=== PATIENT | male | born 1950 | race Caucasian/White ===

== ENCOUNTER 2018-06-29 13:56 | Inpatient (IN) | payer MEDICARE, OTHER, SELFPAY ==
[2018-06-29] VITALS (13 sets, daily range): BP systolic 101–151; BP diastolic 1–90; PULSE 109–148; RESP 12–24; TEMP 36.2–37.4; O2SAT 96–99; BMI 36.1; BMI 36.2; BMI 36.6
[2018-06-29] MEDS: 0.9% Normal Saline 1,000 ML 1000 ML IV (14:15)
--- NOTE | 2018-06-29 14:18 | EKG12_ITS ---
Test Reason : RHYTHM CHANGE Blood Pressure : / mmHG Vent. Rate : 130 BPM Atrial Rate : 130 BPM P-R Int : 192 ms QRS Dur : 154 ms QT Int : 312 ms P-R-T Axes : -25 -19 113 degrees QTc Int : 459 ms Sinus tachycardia Left bundle branch block Abnormal ECG Confirmed by SAMEER JOAQUIN ([id number]), editor map SIDRA KNAPP ([id number]) on 07/04/2018 2:35:19 PM Referred By: RENAE Confirmed By:SAMEER JOAQUIN
--- NOTE | 2018-06-29 14:18 | EKG12_ITS ---
Test Reason : TACHYCARDIA Blood Pressure : / mmHG Vent. Rate : 134 BPM Atrial Rate : 288 BPM P-R Int : 000 ms QRS Dur : 138 ms QT Int : 308 ms P-R-T Axes : -40 -24 112 degrees QTc Int : 459 ms Sinus tachycardia Left bundle branch block Abnormal ECG Confirmed by SAMEER JOAQUIN ([id number]), news videotape editor SIDRA KNAPP ([id number]) on 07/04/2018 2:48:29 PM Referred By: RENAE Confirmed By:SAMEER JOAQUIN
[2018-06-29 14:56] LABS: Absolute Lymphocyte Count 2.03 X10^3/ul (0.83-4.51); Absolute Neutrophil Count 8.4 X10^3/uL (2.0-7.7); Basophil# 0.05 X10^3/uL; Basophil% 0.4 % (0-1); Eosinophil# 0.01 X10^3/uL; Eosinophils% 0.1 % (0-5); Hematocrit 32.6 % (40-54); Hemoglobin 10.6 g/dl (13.0-16.5); Lymphocyte # 2.03 X10^3/ul (4.0); Lymphocyte % 17.9 % (19-41); Mean Corp Hgb Conc 32.5 g/gl (32-36); Mean Corpuscular Hgb 30.3 pg (27.0-32.0); Mean Corpuscular Volume 93.1 fL (80-94); Mean Platelet Vol. 11.2 fl (6.2-12.0); Monocyte# 0.81 X10^3/uL; Monocyte% 7.1 % (0-10); Neutrophil # 8.37 X10^3/uL (2.7-7.7); POSITIVE COUNT NO; POSITIVE DIFFERENTIAL NO; POSITIVE MORPHOLOGY NO; Platelet Count 224 K/mm3 (150-450); RBC Distribution Width CV 13.8 % (11.6-14.6); RBC Distribution Width SD 45.4 fl (35.1-43.9); White Blood Count 11.3 K/mm3 (4.4-11.0)
[2018-06-29 15:03] LABS: International Normalized Ratio 1.1; Partial Thromboplast Time 27.1 Seconds (24.1-36.2); Prothrombin Time (Protime)PT. 14.4 SECONDS (11.7-14.9)
[2018-06-29 15:07] LABS: Lactic Acid 1.9 mmol/L (0.4-2.0)
[2018-06-29 15:09] LABS: ALB/GLOB Ratio 0.9 RATIO (0.9-2.4); AST(SGOT) 13 U/L (15-37); Alanine Aminotransfer ALT/SGPT 20 U/L (16-61); Albumin, Serum 2.9 g/dL (3.2-5.0); Alkaline Phosphatase 29 U/L (45-117); Anion Gap 13 (5-15); BUN 54 mg/dL (7-18); Chloride 110 mmol/L (98-107); Creatinine, Serum 1.15 mg/dL (0.70-1.30); EST Glomerular Filtration Rate 68 mL/min (>60); Est Glom Filt Rate - Afr Amer 82 mL/min (>60); Estimated Creatinine Clearance 63.19 ml/min; Globulin 3.3 g/dL (2.2-4.2); Glucose 221 mg/dL (74-106); Lipase 68 U/L (73-393); Magnesium 1.8 mg/dL (1.6-2.6); Protein, Total 6.2 g/dL (6.4-8.2); Sodium Level 142 mmol/L (136-145); Thyroid Stim Hormone (TSH) 0.33 uIU/mL (0.358-3.74)
[2018-06-29 15:38] LABS: Bacteria 0 SEEN /hpf (None Seen); Mucous, Urine 0 SEEN /hpf (<or=2+)
[2018-06-29 15:46] LABS: Color, Urine Yellow (Yellow); Glucose, Dipstick Normal (Normal); Ketone-Dipstick Negative (Negative); Leukocyte Esterase-Dipstick 25 /ul (Negative); Nitrite-Dipstick Negative (Negative); Occult Blood-Urine 25 /ul (Negative); Protein-Dipstick Negative (Negative); Urine Bilirubin Dipstick Negative (Negative); Urine Clarity Clear (Clear); Urine Urobilinogen Normal (Normal)
--- NOTE | 2018-06-29 15:55 | ED.RN ---
hector iniguez hold lopressor at this time.
[2018-06-29 16:14] LABS: Red Blood Cells-Urine 0-5 SEEN /hpf (0-5); Squamous Epithelial Cells - UA 0-5 SEEN /hpf (0-5); White Blood Cells 0-5 SEEN /hpf (0-5)
--- NOTE | 2018-06-29 16:31 | ED.VISSUMM ---
- ER Visit Summary Date of Service: 06/29/18 Chief Complaint: Weakness History of Present Illness: The patient is a 67 M who states that yesterday he thinks he had a heat stroke. He states he was carrying wood in and out of the house basement most of the day. One point he stumbled causing a contusion to his abdomen. States he kept drinking water and was urinating about every 45 minutes. At one point during the night he vomited what he describes as coffee grounds and then this morning he had a diarrheal episode that was black and tarry. Said no further vomiting. He ate some eggs and toast around noon. States he just feels like he has no energy. He states that he has a heart ventricle that works about 30%. From what I can gather he has a dilated cardiomyopathy, peripheral vascular disease, obstructive sleep apnea, diabetes and hypertension. He is on Plavix. He states he recently had a colonoscopy that was normal. He has never had any type of bleeding from his colon or stomach before. He states he has not had any epigastric burning or GERD symptoms. Physical Examination: Heart rate is 148. Blood pressure 101/57. Temperature 99.1. Respirations are 20. Pulse ox 97%. Gen: Well-nourished well-developed Head: Normocephalic atraumatic Eyes: Perrl EOMI ENT: TMs clear no rhinorrhea moist mucous membranes Neck: Supple no lymphadenopathy no JVD nontender CVS: Regular rate and tachycardic rhythm no murmurs normal S1-S2 Respiratory: No distress clear to auscultation bilaterally chest nontender Abdomen: Soft nontender nondistended normal bowel sounds no masses Back: Nontender Rectal: Black liquid stool that is heme positive Extremity: Nontender no edema Skin: Normal color no rash Neuro: alert orientated ?3 CN II-XII intact normal strength sensation reflexes gait cerebellar Psych: Normal affect normal mood Test Results: EKG demonstrates a bundle branch block at a rate of 134. Computer calls this atrial flutter however I do not see obvious flutter waves. Repeat EKG shows a sinus tachycardia with a left bundle branch block. Left bundle branch block is old. Hemoglobin at 10.6. He white count 11.3. BUN 54 creatinine 1.151. Coags obtained. Urinalysis normal. Chest x-ray negative. Emergency Department Course and Treatment: At the beginning of May he had a hemoglobin of 14.6 and outpatient labs. Today is 10.6. He is heme positive stool. This most likely is an upper GI bleed complicated by Plavix. He was received IV fluids as well as Protonix. I spoke with Dr. Ma who is on-call for surgery is going to come and evaluate the patient. Dr. Ovalles will admit for hospitalist service. Impression: 1. Upper GI Bleed 2. Anemia This note was generated with [employer] dictation software. It may contain incorrect words, spelling, and punctuation that were not noted in review of the chart prior to signing ED Disposition - Plan for ED Patient: Chief Complaint: Weakness Referrals: Suki Brewer MD [Primary Care Provider] -
[2018-06-29] MEDS: 0.9% Normal Saline 1,000 ML 999 ML IV (16:44)
[2018-06-29 16:49] LABS: Hematocrit 32.4 % (40-54); Hemoglobin 10.4 g/dl (13.0-16.5)
--- NOTE | 2018-06-29 17:14 | PCM.CONS.B ---
- Consult Date of Consult: 06/29/18 - Reason for Consult Chief Complaint: increased weakness and black stools History of Present Illness: 67 y/o WM presents with UGIB. Presents with increased weakness and melena. Denies abdominal pain. History of possible ulcer 20-30 years ago, treated with antacids and then stopped. Denies any problems since. Denies heartburn or acid indigestion. Has increased eructation. Recently had colonoscopy 11/14/17 found to have colon polyps. Past Medical History: Benign neoplasm of colon Tubular adenoma 2014 colonoscopy Brain TIA 06/02/2011 CAD (coronary artery disease), [place] coronary artery 06/03/2011 Cardiomyopathy, dilated, nonischemic (HCC) 07/07/2011 Congestive heart failure ([facility]) 06/03/2011 Dissection of carotid artery (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) 08/15/2014 RUTHY (obstructive sleep apnea), intolerant of CPAP 12/30/2008 Intolerant of CPAP Pure hypercholesterolemia ? PVD (peripheral vascular disease) ([facility]) 06/03/2011 Snoring ? Sprain of neck ? Tobacco use disorder 12/30/2008 Toxic diffuse goiter without mention of thyrotoxic crisis or storm history of DYE treatment Type II or unspecified type diabetes mellitus without mention of complication, not stated as uncontrolled ? Unspecified essential hypertension ? Unspecified hypothyroidism ? Unspecified late effects of cerebrovascular disease ? Unspecified otitis media ? Unspecified transient cerebral ischemia Past Surgical History: ANGIOPLASTY FEMORAL/POP 03/11/2014 Right femoral. ARTERY X-RAYS, HEAD & NECK 1998 Carotid angiogram CATARACT SURGERY, COMPLEX ?mid late ? bilateral COLONOSCOP W/ OR W/O [facility] SPEC 11/14/14 COLONOSCOPY W/BX ? 09/29/09 EGD W/O OR W/BRUSH/WASH ? 07/14/2012 KNEE ARTHROSCOP MENISCUS REPAIR MED/LAT ? 04/27/2017 LEFT HEART CATH,PERCUTANEOUS ? ? Cardiac cath, L heart PAST SURGICAL HISTORY OF 1951 evacuation of hematoma, PAST SURGICAL HISTORY OF 10/03? stents in both legs Medications: hydroCHLOROthiazide (HYDRODIURIL, ESIDRIX) 12.5 mg tablet Take 1 tablet by mouth once daily. levothyroxine (SYNTHROID) 137 mcg tablet TAKE 1 TABLET BY MOUTH ONCE DAILY. EXCEPT ON SATURDAY TAKE EXTRA HALF PILL atorvastatin (LIPITOR) 40 mg tablet Take 1 tablet by mouth once daily. clopidogrel (PLAVIX) 75 mg tablet Take 1 tablet by mouth once daily. spironolactone (ALDACTONE) 25 mg tablet Take 1 tablet by mouth once daily. carvedilol (COREG) 12.5 mg tablet Take 1 tablet by mouth twice daily with meals. tamsulosin ER (FLOMAX) 0.4 mg cp24 TAKE 1 CAPSULE BY MOUTH EVERY EVENING. aspirin(ECOTRIN LOW STRENGTH 81 MG TAB) Take one(1) tablet daily. lisinopril (ZESTRIL, PRINIVIL) 10 mg tablet Take 1 tablet by mouth once daily. Allergies: penicillins, tetracycline Social history: TOB use quit 2012 ETOH use 3 drinks per week Review of Systems: General - denies fevers, denies weight loss, denies anorexia Cardiovascular denies chest pain, has peripheral arterial disease - known left ICA occlusion and right iliac stenosis (stented) Pulmonary denies shortness of breath, denies coughing up blood Gastrointestinal as per HPI Neurological denies numbness/weakness of extremities, denies seizures Genitourinary has prostate problems, has had hematuria, has known BPH Hematological on plavix and aspirin, denies spontaneous/prolonged bleeding Skin denies open non healing wounds Musculoskeletal has knee pain Endocrine has diabetes, has hypothyroidism Psychological denies hallucinations Physical examination: Vital signs Ht: 5'10 Wt 240# Temp 98.2F HR 108 RR 16 BP 132/66 General WD/WN WM in no apparent distress, alert and oriented, not septic appearing HEENT Normocephalic. EOM intact with sclera clear and no icterus noted. Neck is supple with no jugular venous distention noted. Trachea is midline. Lungs clear to auscultation. normal breath sounds in all lung hernández. No rales/rhonchi/wheezing noted. No labored breathing noted, such as retractions. No cough heard. Heart normal S1 and S2 auscultated. No rubs/clicks/murmurs noted. Normal size and location by auscultation. Abdomen soft and benign and protuberant, normal bowel sounds, difficult to determine if any mass or organomegaly due to body habitus Extremities no calf tenderness noted. Genitourinary/Rectal deferred Skin normal skin integrity. Neurological non focal. Psychological normal affect, patient is calm and appropriate Impression: upper GI bleed anemia melena Discussion/Plan: I have discussed the above with the patient, and his who is present with him. I have offered EGD possible biopsies, for evaluation. I have explained the procedure to the patient. I have counseled the patient as to the risks of the procedure, including but not limited to: infection, bleeding, injury to any blood vessels/nerves, injury to any intraabdominal organs, aspiration, perforation of the GI tract, inability to localize site of bleeding, etc. the patient understands. He agrees to proceed. I have answered all questions to the patients satisfaction and the patient has no further questions.
--- NOTE | 2018-06-29 17:18 | CON.PCM_ITS ---
- Consult Date of Consult: 06/29/18 - Reason for Consult Chief Complaint: increased weakness and black stools History of Present Illness: 67 y/o WM presents with UGIB. Presents with increased weakness and melena. Denies abdominal pain. History of possible ulcer 20-30 years ago, treated with antacids and then stopped. Denies any problems since. Denies heartburn or acid indigestion. Has increased eructation. Recently had colonoscopy 11/14/17 found to have colon polyps. Past Medical History: Benign neoplasm of colon Tubular adenoma 2014 colonoscopy Brain TIA 06/02/2011 CAD (coronary artery disease), [place] coronary artery 06/03/2011 Cardiomyopathy, dilated, nonischemic (HCC) 07/07/2011 Congestive heart failure ([facility]) 06/03/2011 Dissection of carotid artery ([facility]) 06/10/2005 Lumbago 07/25/2007 Morbid obesity ([facility]) 08/15/2014 RUTHY (obstructive sleep apnea), intolerant of CPAP 12/30/2008 Intolerant of CPAP Pure hypercholesterolemia ? PVD (peripheral vascular disease) ([facility]) 06/03/2011 Snoring ? Sprain of neck ? Tobacco use disorder 12/30/2008 Toxic diffuse goiter without mention of thyrotoxic crisis or storm history of DYE treatment Type II or unspecified type diabetes mellitus without mention of complication , not stated as uncontrolled ? Unspecified essential hypertension ? Unspecified hypothyroidism ? Unspecified late effects of cerebrovascular disease ? Unspecified otitis media ? Unspecified transient cerebral ischemia Past Surgical History: ANGIOPLASTY FEMORAL/POP 03/11/2014 Right femoral. ARTERY X-RAYS, HEAD & NECK 1998 Carotid angiogram CATARACT SURGERY, COMPLEX ?mid late ? bilateral COLONOSCOP W/ OR W/O [facility] SPEC 11/14/14 COLONOSCOPY W/BX ? 09/29/09 EGD W/O OR W/BRUSH/WASH ? 07/14/2012 KNEE ARTHROSCOP MENISCUS REPAIR MED/LAT ? 04/27/2017 LEFT HEART CATH,PERCUTANEOUS ? ? Cardiac cath, L heart PAST SURGICAL HISTORY OF 1951 evacuation of hematoma, PAST SURGICAL HISTORY OF 10/03? stents in both legs Medications: hydroCHLOROthiazide (HYDRODIURIL, ESIDRIX) 12.5 mg tablet Take 1 tablet by mouth once daily. levothyroxine (SYNTHROID) 137 mcg tablet TAKE 1 TABLET BY MOUTH ONCE DAILY. EXCEPT ON SATURDAY TAKE EXTRA HALF PILL atorvastatin (LIPITOR) 40 mg tablet Take 1 tablet by mouth once daily. clopidogrel (PLAVIX) 75 mg tablet Take 1 tablet by mouth once daily. spironolactone (ALDACTONE) 25 mg tablet Take 1 tablet by mouth once daily. carvedilol (COREG) 12.5 mg tablet Take 1 tablet by mouth twice daily with meals. tamsulosin ER (FLOMAX) 0.4 mg cp24 TAKE 1 CAPSULE BY MOUTH EVERY EVENING. aspirin(ECOTRIN LOW STRENGTH 81 MG TAB) Take one(1) tablet daily. lisinopril (ZESTRIL, PRINIVIL) 10 mg tablet Take 1 tablet by mouth once daily. Allergies: penicillins, tetracycline Social history: TOB use quit 2012 ETOH use 3 drinks per week Review of Systems: General - denies fevers, denies weight loss, denies anorexia Cardiovascular denies chest pain, has peripheral arterial disease - known left ICA occlusion and right iliac stenosis (stented) Pulmonary denies shortness of breath, denies coughing up blood Gastrointestinal as per HPI Neurological denies numbness/weakness of extremities, denies seizures Genitourinary has prostate problems, has had hematuria, has known BPH Hematological on plavix and aspirin, denies spontaneous/prolonged bleeding Skin denies open non healing wounds Musculoskeletal has knee pain Endocrine has diabetes, has hypothyroidism Psychological denies hallucinations Physical examination: Vital signs Ht: 5'10 Wt 240# Temp 98.2F HR 108 RR 16 BP 132/66 General WD/WN WM in no apparent distress, alert and oriented, not septic appearing HEENT Normocephalic. EOM intact with sclera clear and no icterus noted. Neck is supple with no jugular venous distention noted. Trachea is midline. Lungs clear to auscultation. normal breath sounds in all lung hernández. No rales/rhonchi/wheezing noted. No labored breathing noted, such as retractions. No cough heard. Heart normal S1 and S2 auscultated. No rubs/clicks/murmurs noted. Normal size and location by auscultation. Abdomen soft and benign and protuberant, normal bowel sounds, difficult to determine if any mass or organomegaly due to body habitus Extremities no calf tenderness noted. Genitourinary/Rectal deferred Skin normal skin integrity. Neurological non focal. Psychological normal affect, patient is calm and appropriate Impression: upper GI bleed anemia melena Discussion/Plan: I have discussed the above with the patient, and his who is present with him. I have offered EGD possible biopsies, for evaluation. I have explained the procedure to the patient. I have counseled the patient as to the risks of the procedure, including but not limited to: infection, bleeding, injury to any blood vessels/nerves, injury to any intraabdominal organs, aspiration, perforation of the GI tract, inability to localize site of bleeding, etc. the patient understands. He agrees to proceed. I have answered all questions to the patient?s satisfaction and the patient has no further questions.
--- NOTE | 2018-06-29 18:40 | PCM.IMDPSTOP ---
Immediate Post-Op Note Date of Procedure: 06/29/18 Primary Surgeon/Physician: Kaitlin Ma electronics assembler: NOT,DEFINED Pre-Operative Diagnosis: UGIB Post-Operative Diagnosis: duodenal ulcer Surgery/Procedure Performed:: EGD Description of Surgical Findings:: duodenal ulcer - broad based in first part of duodenum, not actively bleeding Estimated Blood Loss: none Specimen's removed: none Type of Anesthesia:: MAC ASA Class: ASA3 Plus Emergency
--- NOTE | 2018-06-29 18:42 | PCM.OPRPT ---
Report of Operation Date of Procedure: 06/29/18 Pre-Operative Diagnosis: UGIB Post-Operative Diagnosis: duodenal ulcer - anterior first part of duodenum Surgery/Procedure Performed:: esophagogastroduodenoscopy Description of Surgical Findings:: duodenal ulcer - broad based in first part of duodenum, not actively bleeding biology intern: NOT,DEFINED Type of Anesthesia:: MAC Anesthesiologist: Vishal Nunez Ben Specimen's removed: none Estimated Blood Loss (mL): none Fluids Replaced: see anesthesia note Description of Procedure: After informed consent was given, the patient was brought to the endoscopy suite. Appropriate time out protocol was followed. Appropriate cardiac, blood pressure, and pulse oximetry monitoring was placed. After stable vital signs were noted, the patient was given intravenous conscious sedation. The posterior pharynx was sprayed with lidocaine spray times two and a bite block was placed. The patient was then placed in the upright sitting position since he had not been NPO for at least 6 hours. The upper endoscope was lubricated and inserted into the patients mouth and then carefully placed into the patients throat. The patient was asked to swallow and the endoscope was then easily advanced into the patients esophagus. The endoscope was further advanced down into the patients stomach, then past the pylorus, then past the duodenal bulb and then to the second portion of the duodenum. There was blood noted in the duodenum. A broad based ulcer was noted in the first part of the duodenum (anteriorly), not actively bleeding. The endoscope was then retracted back into the stomach. Ther patient was a difficult MAC and could not be sedated therefore the procedure was suboptimal, A retroflex view of the stomach revealed no evidence of obvious lesions. The endoscope was retracted into the esophagus, where any insufflated gas in the stomach was aspirated out, to prevent aspiration. The esophagus appeared grossly normal. The endoscope was removed intact. Patient tolerated procedure. - Complications none noted
--- NOTE | 2018-06-29 18:48 | PCM.PN.BLA ---
Progress Note Findings of duodenal ulcer - Recommendations: protonix drip, as ordered by Dr. Orourke hold aspirin and plavix until Hgb noted to be stable can start clear liquid diet
--- NOTE | 2018-06-29 20:30 | PCM.HP.STD ---
Problem List (1) Duodenal ulcer Status: Acute (2) GI bleed Status: Acute (3) Hx-TIA (transient ischemic attack) Status: Chronic (4) Hypothyroidism Status: Chronic (5) HLD (hyperlipidemia) Status: Chronic (6) Gastroesophageal reflux disease Status: Chronic (7) Benign essential HTN Status: Chronic History of Present Illness Date of Admission: 06/29/18 Chief Complaint: Hematemesis and melena The patient is a 67 year old M with a h/o TIA, LBBB, possible h/o heart failure without records in our system, HLD, hpothyroidism who presents with a 1 days history of hematemesis and melena. States that yesterday he was unloading wood for the winter and he was feeling SOB and tired, more so than usual. He felt off the rest of the day. He ate dinner around 6 pm and then this morning he woke up nauseated and around 6 am and had coffe ground emesis and a black tar diarrhea. He called his daughter who is an ER nurse, and she told him to get to the hospital. On admission his H/H was found to be 10.8 from a recent baseline of 14. He was taken for emergent EGD and started on a protonix gtt. He was found to have a duodenal ulcer that was not actively bleeding. He has a h/o ulcers. Past Medical History Past Medical History (Chronic Problems): Chronic Problems Hx-TIA (transient ischemic attack) (Chronic) Hypothyroidism (Chronic) HLD (hyperlipidemia) (Chronic) Gastroesophageal reflux disease (Chronic) Benign essential HTN (Chronic) Allergies Penicillins Allergy (Verified 06/29/18 13:58) Hives tetracycline Allergy (Verified 06/29/18 13:58) Hives Home Medications: Ambulatory Orders Medication Instructions Recorded Aspirin E.C. [Ecotrin] 81 mg PO DAILY@0800 06/29/18 Atorvastatin Calcium 40 mg PO QHS 06/29/18 Carvedilol [Carvedilol] 12.5 mg PO BID 06/29/18 Clopidogrel Bisulfate [Plavix] 75 mg PO DAILY 06/29/18 Hydrochlorothiazide 12.5 mg PO DAILY 06/29/18 Levothyroxine [Synthroid] 137 mcg PO DAILY 06/29/18 Levothyroxine [Synthroid] 205.5 mcg PO QWEEK 06/29/18 Lisinopril [Zestril] 10 mg PO DAILY 06/29/18 Spironolactone [Aldactone] 25 mg PO DAILY 06/29/18 Tamsulosin HCl [Flomax] 0.4 mg PO DAILY 06/29/18 Surgical History: - - craniectomy for blood clot at , iliac stents Lives: With Family Smoking Status: Former smoker Tobacco Use: Cigarettes Alcohol: None Drugs: None - *Family History Paternal History Items: Heart Disease, Hypertension Maternal History Items: Heart Disease, Hypertension Review of Systems Constitutional: Denies: Chills, Fever, Weight Change HEENT: Denies: Head Aches, Sinus Congestion, Sinus Drainage Cardiovascular: Denies: Chest Pain, Palpitations Respiratory: Reports: Shortness of breath upon exertion. Denies: Cough, Shortness of breath at rest, Sputum production Gastrointestinal: Reports: Hematemesis, Nausea, Melena, Vomiting. Denies: Abdominal Pain Genitourinary: Denies: Dysuria Musculoskeletal: Denies: Joint Pain, Joint Tenderness Skin: Denies: Rash, Wounds Neurological: Denies: Numbness, Tingling, Focal weakness Psychiatric: Denies: Anxiety, Depression Hematologic/ Lymphatic: Denies: Easy Bruising, Easy Bleeding VTE Information - Inpt Only VTE Present on Admission: No Patient Problems: Active and Suspected Problems Duodenal ulcer (Acute) GI bleed (Acute) - Physical Exam General: Alert, Oriented x3, Cooperative, No apparent distress HEENT: Atraumatic, EOMI, Normocephalic Oral: Moist Mucosa Neck: Supple, No JVD Lungs: Clear to auscultation, Normal air movement, No rhonchi, No wheeze, No rales Cardiovascular: Regular rate, Regular Rhythm, Normal S1, Normal S2, No murmurs Abdomen: Soft, Non Tender, Non-Distended, No Hepato-splenomegaly Extremities: No edema, Capillary Refill Less than 3 Seconds Skin: No rashes, No breakdown Musculoskeletal: No Tenderness to Palpation of Joints or Extremities Neurological: Neuro grossly intact, Sensory exam intact to light touch and pain Psych/Mental Status: Normal Affect, Appropriate Vital Signs Temp Pulse Resp BP Pulse Ox 99.3 F H 120 H 18 136/72 H 99 06/29/18 19:20 06/29/18 19:23 06/29/18 19:20 06/29/18 19:20 06/29/18 19:20 Oxygen Flow Rate (L/min) 2 Oxygen Delivery Method Nasal Cannula Weight: 248 lb 1.6 oz Body Mass Index (BMI) 36.6 Intake and Output for Last 24 Hours 06/27/18 06/28/18 06/29/18 23:59 23:59 23:59 Intake Total 200 / 200 Balance 200 / 200 Assessment/Plan All Active Problems Duodenal ulcer (Acute) GI bleed (Acute) 1. UGI bleed from duodenal ulcer/Anemia - He was on a PPI gtt H/H is stable at 10.4 since admission - Will continue the drip overnight go to BID dosing in the morning - IVF@125 for tonight only. I could not find any records of his EF but will monitor his fluid status closely - CBC in am - Hold aspirin and plavix, continue only plavix on DC as the aspirin can initiate bleeding as well as worsen it 2. HTN/HLD/possible cardiomyopathy - C/w his home medications - Currently stable, will monitor VS and if he has any deterioration, will hold antihypertensive - LBBB is old per anesthesia 3. Synthroid - TSH is a little low to 0.33 - C/w his home medications and have follow-up as an outpatient once the acute illness is over DVT: SCDs Diet: Clears Code Visit Inpatient E&M: 48101 Init Hosp L3
[2018-06-29] MEDS: 0.9% Normal Saline 1,000 ML 125 ML IV (21:53)
[2018-06-29] MEDS: Carvedilol 12.5 MG Tablet PO (21:53)
[2018-06-29] MEDS: Atorvastatin Calcium 40 MG Tablet PO (21:53)
[2018-06-29] MEDS: Tamsulosin HCl 0.4 MG Capsule PO (21:55)
[2018-06-29] MEDS: Levothyroxine 137 MCG Tablet PO (21:56)
[2018-06-30] VITALS (12 sets, daily range): BP systolic 95–134; BP diastolic 54–78; PULSE 80–98; RESP 16–18; TEMP 36.7–37.3; O2SAT 93–96
[2018-06-30] MEDS: 0.9% Normal Saline 1,000 ML 125 ML IV (05:34)
[2018-06-30 06:37] LABS: Absolute Lymphocyte Count 2.07 X10^3/ul (0.83-4.51); Absolute Neutrophil Count 5.7 X10^3/uL (2.0-7.7); Basophil# 0.04 X10^3/uL; Basophil% 0.5 % (0-1); Eosinophil# 0.17 X10^3/uL; Hematocrit 25.2 % (40-54); Lymphocyte # 2.07 X10^3/ul (4.0); Mean Corp Hgb Conc 31.7 g/gl (32-36); Mean Corpuscular Hgb 29.7 pg (27.0-32.0); Mean Corpuscular Volume 93.7 fL (80-94); Mean Platelet Vol. 10.5 fl (6.2-12.0); Monocyte# 0.57 X10^3/uL; Monocyte% 6.6 % (0-10); Neutrophil # 5.74 X10^3/uL (2.7-7.7); Neutrophil % 66.7 % (47-70); Platelet Count 175 K/mm3 (150-450); RBC Distribution Width CV 14.6 % (11.6-14.6); RBC Distribution Width SD 49.9 fl (35.1-43.9); Red Blood Count 2.69 M/mm3 (4.6-6.2); White Blood Count 8.6 K/mm3 (4.4-11.0)
[2018-06-30 06:39] LABS: POSITIVE COUNT NO; POSITIVE DIFFERENTIAL NO; POSITIVE MORPHOLOGY NO
[2018-06-30 06:49] LABS: Anion Gap 10 (5-15); BUN 35 mg/dL (7-18); Calcium,Total 7.2 mg/dL (8.5-10.1); Chloride 115 mmol/L (98-107); EST Glomerular Filtration Rate 90 mL/min (>60); Est Glom Filt Rate - Afr Amer 109 mL/min (>60); Estimated Creatinine Clearance 80.74 ml/min; Glucose 110 mg/dL (74-106); Sodium Level 147 mmol/L (136-145)
--- NOTE | 2018-06-30 10:22 | PCM.PN.SRG ---
Patient Problems: Active and Suspected Problems Duodenal ulcer (Acute) GI bleed (Acute) Subjective: patient denies abdominal pain, feels hungry, denies bowel movements - Physical Exam General: Alert, Oriented x3 Oral: Moist Mucosa Neck: Supple Abdomen: Bowel Sounds Present, Soft Vital Signs Temp Pulse Resp BP Pulse Ox 98.1 F 83 16 134/78 H 96 06/30/18 09:50 06/30/18 09:50 06/30/18 09:50 06/30/18 09:50 06/30/18 09:50 Oxygen Delivery Method Room Air Intake and Output for Last 24 Hours 06/28/18 06/29/18 06/30/18 23:59 23:59 23:59 Intake Total 1172 / 1172 Balance 1172 / 1172 Laboratory Tests Past 24 Hrs 06/30/18 06/30/18 05:26 05:26 WBC 8.6 RBC 2.69 L Hgb 8.0 L Hct 25.2 L MCV 93.7 MCH 29.7 MCHC 31.7 L RDW 14.6 RDW Differential 49.9 H Plt Count 175 MPV 10.5 Immature Gran % (Auto) 0.200 Neut % (Auto) 66.7 Lymph % (Auto) 24.0 [place] % (Auto) 6.6 Eos % (Auto) 2.0 Baso % (Auto) 0.5 Absolute Neuts (auto) 5.7 Absolute Lymphs (auto) 2.07 Total Counted Not Reportable Sodium 147 H Potassium 4.0 Chloride 115 H Carbon Dioxide 22.0 Anion Gap 10 BUN 35 H Creatinine 0.90 Estim Creat Clear Calc 80.74 Est GFR (MDRD) Af Amer 109 Est GFR (MDRD) Non-Af 90 BUN/Creatinine Ratio 39.0 H Glucose 110 H Calcium 7.2 L Medical Necessity - Tobacco Use Smoking Status: Former smoker Tobacco Use: Cigarettes Assessment/Plan All Active Problems Duodenal ulcer (Acute) GI bleed (Acute) Impression: duodenal ulcer Plan: Hgb dropped from 10 to 8 overnight - could be dilutional will order serial h/h q4, may require repeat EGD if significant drop in Hct will therefore make NPO in anticipation of this
[2018-06-30 10:45] LABS: Hematocrit 25.2 % (40-54); Hemoglobin 7.9 g/dl (13.0-16.5)
--- NOTE | 2018-06-30 11:28 | CASEMGMT ---
Face to Face with patient for initial transition planning/care coordination assessment. OBI FONTAINE introduced self and role at [facility], pt voices understanding and consents to assessment at this time. Pt is sitting up in bed in no distress at this time. Pt is A/O x4 at this time and answers all questions appropriately. Care providers, pharmacy, and demographics verified. See attached link. Pt voices no further concerns/needs at this time. Advised pt to ask for CM if any further questions/concerns/needs arise, voices understanding. CM to follow for any further discharge planning/needs. PLAN: [place] OBI FONTA[place]
[2018-06-30 12:03] LABS: Hemoglobin A1c 6.6 % (4.2-6.3)
[2018-06-30] MEDS: 0.9% Normal Saline 1,000 ML 100 ML IV ×2 (13:29→22:13)
[2018-06-30 13:48] LABS: Hematocrit 24.6 % (40-54); Hemoglobin 7.7 g/dl (13.0-16.5)
--- NOTE | 2018-06-30 13:55 | PCM.PROGNOTE ---
<Gregg Mendez - Last Filed: 06/30/18 13:55> Patient Problems: Active and Suspected Problems Duodenal ulcer (Acute) GI bleed (Acute) Subjective: Pt without abdominal pain, nausea, vomiting. NPO. No bowel movement today. No dizziness, LH. Ambulating without symptoms. No palp. Recently on heavy nsaids for shoulder pain. 3 cups of coffee per day. Hx Ulcer 30 years ago. Rare alcohol use. No nicotine use. - Physical Exam General: Alert, Oriented x3, Cooperative HEENT: Atraumatic, PERRLA, EOMI, Normocephalic Neck: Supple, No JVD, Negative Carotid Bruits Lungs: Clear to auscultation, Normal air movement Cardiovascular: Regular rate, No murmurs Abdomen: Bowel Sounds Present, Soft, Non Tender Extremities: No edema, Capillary Refill Less than 3 Seconds Skin: No rashes, No breakdown Musculoskeletal: No Tenderness to Palpation of Joints or Extremities Neurological: Cranial nerves II-XII grossly intact Psych/Mental Status: Normal Affect, Appropriate, Alert and oriented to time, place, person, mood and affect Vital Signs Temp Pulse Resp BP Pulse Ox 98.9 F 89 18 130/69 H 96 06/30/18 12:00 06/30/18 12:00 06/30/18 12:00 06/30/18 12:00 06/30/18 12:00 Oxygen Delivery Method Room Air Intake and Output for Last 24 Hours 06/28/18 06/29/18 06/30/18 23:59 23:59 23:59 Intake Total 2147 / 2147 Balance 2147 / 2147 Laboratory Tests Past 24 Hrs 06/30/18 06/30/18 06/30/18 05:26 05:26 10:35 WBC 8.6 RBC 2.69 L Hgb 8.0 L 7.9 L Hct 25.2 L 25.2 L MCV 93.7 MCH 29.7 MCHC 31.7 L RDW 14.6 RDW Differential 49.9 H Plt Count 175 MPV 10.5 Immature Gran % (Auto) 0.200 Neut % (Auto) 66.7 Lymph % (Auto) 24.0 Coal % (Auto) 6.6 Eos % (Auto) 2.0 Baso % (Auto) 0.5 Absolute Neuts (auto) 5.7 Absolute Lymphs (auto) 2.07 Total Counted Not Reportable Sodium 147 H Potassium 4.0 Chloride 115 H Carbon Dioxide 22.0 Anion Gap 10 BUN 35 H Creatinine 0.90 Estim Creat Clear Calc 80.74 Est GFR (MDRD) Af Amer 109 Est GFR (MDRD) Non-Af 90 BUN/Creatinine Ratio 39.0 H Glucose 110 H Hemoglobin A1c Calcium 7.2 L 06/30/18 06/30/18 10:41 13:32 WBC RBC Hgb 7.7 L Hct 24.6 L MCV MCH MCHC RDW RDW Differential Plt Count MPV Immature Gran % (Auto) Neut % (Auto) Lymph % (Auto) Coal % (Auto) Eos % (Auto) Baso % (Auto) Absolute Neuts (auto) Absolute Lymphs (auto) Total Counted Sodium Potassium Chloride Carbon Dioxide Anion Gap BUN Creatinine Estim Creat Clear Calc Est GFR (MDRD) Af Amer Est GFR (MDRD) Non-Af BUN/Creatinine Ratio Glucose Hemoglobin A1c 6.6 H Calcium Medical Necessity - Tobacco Use Smoking Status: Former smoker Tobacco Use: Cigarettes Assessment/Plan All Active Problems Duodenal ulcer (Acute) GI bleed (Acute) 1. Acute blood loss anemia 2/2 Upper GI bleed 2/2 duodenal ulcer - h/h q4. Surgery following. s/p egd - see report. Possible repeat EGD in am. NPO .Protonix drip. Recent nsaid use. Advised no further. asa/plavix held. 2. HTN stable 3. Hypothyroidism - synthroid 4. HLD - statin 5. Hx TIA - asa/plavix held for bleed. DVT ppx: SCDs DC planning: pending h/h'2, plan for egd This patient was seen by Gregg Mendez PA-C under the supervision of Doctor Angel. <George Ortiz - Last Filed: 06/30/18 17:48> Subjective: Patient did not had hematemesis today. Patient has been taking about 4 pills of Aleve for her pain. Denies pain. - Physical Exam General: Alert, Oriented x3, Cooperative HEENT: Atraumatic, PERRLA, EOMI, Normocephalic Neck: Supple, No JVD, Negative Carotid Bruits Lungs: Clear to auscultation, Normal air movement Cardiovascular: Regular rate, No murmurs Abdomen: Bowel Sounds Present, Soft, Non Tender Extremities: No edema, Capillary Refill Less than 3 Seconds Skin: No rashes, No breakdown Musculoskeletal: No Tenderness to Palpation of Joints or Extremities Neurological: Cranial nerves II-XII grossly intact Psych/Mental Status: Normal Affect, Appropriate Vital Signs Temp Pulse Resp BP Pulse Ox 98.9 F 89 18 130/69 H 96 06/30/18 12:00 06/30/18 12:00 06/30/18 12:00 06/30/18 12:00 06/30/18 12:00 Oxygen Delivery Method Room Air Intake and Output for Last 24 Hours 06/28/18 06/29/18 06/30/18 23:59 23:59 23:59 Intake Total 2994 / 2994 Balance 2994 / 2994 Laboratory Tests Past 24 Hrs 06/30/18 06/30/18 06/30/18 05:26 05:26 10:35 WBC 8.6 RBC 2.69 L Hgb 8.0 L 7.9 L Hct 25.2 L 25.2 L MCV 93.7 MCH 29.7 MCHC 31.7 L RDW 14.6 RDW Differential 49.9 H Plt Count 175 MPV 10.5 Immature Gran % (Auto) 0.200 Neut % (Auto) 66.7 Lymph % (Auto) 24.0 Coal % (Auto) 6.6 Eos % (Auto) 2.0 Baso % (Auto) 0.5 Absolute Neuts (auto) 5.7 Absolute Lymphs (auto) 2.07 Total Counted Not Reportable Sodium 147 H Potassium 4.0 Chloride 115 H Carbon Dioxide 22.0 Anion Gap 10 BUN 35 H Creatinine 0.90 Estim Creat Clear Calc 80.74 Est GFR (MDRD) Af Amer 109 Est GFR (MDRD) Non-Af 90 BUN/Creatinine Ratio 39.0 H Glucose 110 H Hemoglobin A1c Calcium 7.2 L 06/30/18 06/30/18 10:41 13:32 WBC RBC Hgb 7.7 L Hct 24.6 L MCV MCH MCHC RDW RDW Differential Plt Count MPV Immature Gran % (Auto) Neut % (Auto) Lymph % (Auto) Coal % (Auto) Eos % (Auto) Baso % (Auto) Absolute Neuts (auto) Absolute Lymphs (auto) Total Counted Sodium Potassium Chloride Carbon Dioxide Anion Gap BUN Creatinine Estim Creat Clear Calc Est GFR (MDRD) Af Amer Est GFR (MDRD) Non-Af BUN/Creatinine Ratio Glucose Hemoglobin A1c 6.6 H Calcium Assessment/Plan This patient was seen in conjunction with Gregg VALDIVIA. I have independently interviewed and examined the patient and reviewed pertinent history, examination findings, laboratory and plan of management. I have reviewed the note and agree with the documented findings with the few additional points. In brief, patient is admitted for acute blood loss secondary to upper GI bleed due to large duodenal ulcer. EGD showed duodenal ulcer broad-based with no active bleeding anterior in the first part of duodenum. Hemoglobin is stable between 7-8 g percent. Patient was started on regular diet. Discussed with Dr. Ma. I have discussed my assessment with Gregg VALDIVIA and orders have been reviewed. Code Visit Inpatient E&M: 78151 Subs Hosp L3
--- NOTE | 2018-06-30 20:02 | NURSING ---
PT CARE COMPLETED BY MANAGER MUSIC AND REVIEWED BY THIS RN
[2018-06-30] MEDS: Tamsulosin HCl 0.4 MG Capsule PO (22:10)
[2018-06-30] MEDS: Carvedilol 12.5 MG Tablet PO (22:10)
[2018-06-30] MEDS: Atorvastatin Calcium 40 MG Tablet PO (22:11)
[2018-06-30] MEDS: Levothyroxine 137 MCG Tablet PO (22:11)
[2018-07-01] VITALS (16 sets, daily range): BP systolic 95–136; BP diastolic 50–67; PULSE 72–92; RESP 16–18; TEMP 36.7–37.1; O2SAT 91–96
[2018-07-01 06:47] LABS: Hematocrit 24.3 % (40-54); Hemoglobin 7.5 g/dl (13.0-16.5)
[2018-07-01 07:14] LABS: Anion Gap 7 (5-15); BUN 16 mg/dL (7-18); BUN/Creat Ratio 17.3 RATIO (10-20); Calcium,Total 7.3 mg/dL (8.5-10.1); Chloride 112 mmol/L (98-107); Creatinine, Serum 0.93 mg/dL (0.70-1.30); EST Glomerular Filtration Rate 87 mL/min (>60); Est Glom Filt Rate - Afr Amer 105 mL/min (>60); Estimated Creatinine Clearance 78.13 ml/min; Glucose 105 mg/dL (74-106); Potassium 3.8 mmol/L (3.5-5.1); Sodium Level 145 mmol/L (136-145)
--- NOTE | 2018-07-01 10:47 | PCM.PN.SRG ---
Patient Problems: Active and Suspected Problems Duodenal ulcer (Acute) GI bleed (Acute) Subjective: patient denies abdominal pain has not had a bowel movement since being in the hospital, denies emesis tolerating regular diet well vital signs have been stable presently being transfused - Physical Exam General: Alert, Oriented x3 Oral: Moist Mucosa Neck: Supple Lungs: Normal air movement Abdomen: Soft Vital Signs Temp Pulse Resp BP Pulse Ox 98.3 F 85 18 116/62 94 07/01/18 10:27 07/01/18 10:27 07/01/18 10:27 07/01/18 10:27 07/01/18 10:27 Oxygen Delivery Method Room Air Intake and Output for Last 24 Hours 06/29/18 06/30/18 07/01/18 23:59 23:59 23:59 Intake Total 2994 / 2994 1468 / 1468 Balance 2994 / 2994 1468 / 1468 Laboratory Tests Past 24 Hrs 06/30/18 06/30/18 07/01/18 10:41 13:32 06:18 Hgb 7.7 L Hct 24.6 L Sodium 145 Potassium 3.8 Chloride 112 H Carbon Dioxide 26.0 Anion Gap 7 BUN 16 Creatinine 0.93 Estim Creat Clear Calc 78.13 Est GFR (MDRD) Af Amer 105 Est GFR (MDRD) Non-Af 87 BUN/Creatinine Ratio 17.3 Glucose 105 Hemoglobin A1c 6.6 H Calcium 7.3 L 07/01/18 06:18 Hgb 7.5 L Hct 24.3 L Sodium Potassium Chloride Carbon Dioxide Anion Gap BUN Creatinine Estim Creat Clear Calc Est GFR (MDRD) Af Amer Est GFR (MDRD) Non-Af BUN/Creatinine Ratio Glucose Hemoglobin A1c Calcium Medical Necessity - Tobacco Use Smoking Status: Former smoker Tobacco Use: Cigarettes Assessment/Plan All Active Problems Duodenal ulcer (Acute) GI bleed (Acute) Impression: duodenal ulcer Plan: Patient can be on regular diet Will not repeat EGD unless - melena, blood in stools, abdominal pain, hematemesis, etc. Will continue to follow
[2018-07-01] MEDS: Carvedilol 12.5 MG Tablet PO ×2 (11:38→21:21)
[2018-07-01] MEDS: Spironolactone 25 MG Tablet PO (11:39)
--- NOTE | 2018-07-01 14:17 | PCM.PROGNOTE ---
<Gregg Mendez - Last Filed: 07/01/18 14:17> Patient Problems: Active and Suspected Problems Duodenal ulcer (Acute) GI bleed (Acute) Subjective: Pt resting comfortably in bed NAD. No abdominal pain, no nausea, vomiting, bowel activity. Pt receiving 2 units PRBC, diet advanced per surgery. Pt ambulating without difficulty. No LH/Dizziness/SOB. - Physical Exam General: Alert, Oriented x3, Cooperative HEENT: Atraumatic, PERRLA, EOMI, Normocephalic Neck: Supple, No JVD, Negative Carotid Bruits Lungs: Clear to auscultation, Normal air movement Cardiovascular: Regular rate, No murmurs Abdomen: Bowel Sounds Present, Soft, Non Tender Extremities: No edema, Capillary Refill Less than 3 Seconds Skin: No rashes, No breakdown Musculoskeletal: No Tenderness to Palpation of Joints or Extremities Neurological: Cranial nerves II-XII grossly intact Psych/Mental Status: Normal Affect, Appropriate Vital Signs Temp Pulse Resp BP Pulse Ox 98.0 F 75 16 95/56 L 96 07/01/18 11:27 07/01/18 13:00 07/01/18 11:27 07/01/18 11:27 07/01/18 11:27 Oxygen Delivery Method Room Air Weight: 248 lb 1.59 oz Intake and Output for Last 24 Hours 06/29/18 06/30/18 07/01/18 23:59 23:59 23:59 Intake Total 2994 / 2994 1973 Balance 2994 / 2994 1973 Laboratory Tests Past 24 Hrs 07/01/18 07/01/18 06:18 06:18 Hgb 7.5 L Hct 24.3 L Sodium 145 Potassium 3.8 Chloride 112 H Carbon Dioxide 26.0 Anion Gap 7 BUN 16 Creatinine 0.93 Estim Creat Clear Calc 78.13 Est GFR (MDRD) Af Amer 105 Est GFR (MDRD) Non-Af 87 BUN/Creatinine Ratio 17.3 Glucose 105 Calcium 7.3 L Medical Necessity - Tobacco Use Smoking Status: Former smoker Tobacco Use: Cigarettes Assessment/Plan All Active Problems Duodenal ulcer (Acute) GI bleed (Acute) 1. Acute blood loss anemia 2/2 Upper GI bleed 2/2 duodenal ulcer - no repeat EGD today. 2 units PRBC, then monitor overnight. DC in AM. Protonix to PO. Continue to hold asa/plavix. Diet advanced per Dr. Ma. 2. HTN stable 3. Hypothyroidism - synthroid 4. HLD - statin 5. Hx TIA - asa/plavix held for bleed. DVT ppx: SCDs DC planning: home in am if Hgb stable This patient was seen by Gregg Mendez PA-C under the supervision of Doctor Angel. <George Ortiz - Last Filed: 07/01/18 16:55> Subjective: Patient continued to have low hemoglobin though he did not had major drop; hemoglobin she gradually came down from 8-7.5, IV fluid. No shortness of breath. 2 units of PRBC ordered. - Physical Exam General: Alert, Oriented x3, Cooperative HEENT: Atraumatic, PERRLA, EOMI, Normocephalic Neck: Supple, No JVD, Negative Carotid Bruits Lungs: Clear to auscultation, Normal air movement Cardiovascular: Regular rate, Regular Rhythm, Normal S1, Normal S2, No murmurs Abdomen: Bowel Sounds Present, Soft, Non Tender, Non-Distended Extremities: No edema, Capillary Refill Less than 3 Seconds Skin: No rashes, No breakdown Musculoskeletal: No Tenderness to Palpation of Joints or Extremities Neurological: Cranial nerves II-XII grossly intact Psych/Mental Status: Normal Affect, Appropriate Vital Signs Temp Pulse Resp BP Pulse Ox 98.5 F 78 18 116/55 L 95 07/01/18 14:30 07/01/18 14:30 07/01/18 14:30 07/01/18 14:30 07/01/18 14:30 Oxygen Delivery Method Room Air Weight: 248 lb 1.59 oz Intake and Output for Last 24 Hours 06/29/18 06/30/18 07/01/18 23:59 23:59 23:59 Intake Total 2994 / 2994 2334 / 2334 Balance 2994 / 2994 2334 / 2334 Laboratory Tests Past 24 Hrs 07/01/18 07/01/18 06:18 06:18 Hgb 7.5 L Hct 24.3 L Sodium 145 Potassium 3.8 Chloride 112 H Carbon Dioxide 26.0 Anion Gap 7 BUN 16 Creatinine 0.93 Estim Creat Clear Calc 78.13 Est GFR (MDRD) Af Amer 105 Est GFR (MDRD) Non-Af 87 BUN/Creatinine Ratio 17.3 Glucose 105 Calcium 7.3 L Assessment/Plan This patient was seen in conjunction with Gregg VALDIVIA. I have independently interviewed and examined the patient and reviewed pertinent history, examination findings, laboratory and plan of management. I have reviewed the note and agree with the documented findings with the few additional points. In brief, patient is admitted for acute blood loss secondary to upper GI bleed due to large duodenal ulcer. EGD showed duodenal ulcer broad-based with no active bleeding anterior in the first part of duodenum. Hemoglobin slowly drifted down from 8-7.5. 2 units of PRBC ordered. Follow-up posttransfusion H&H. Lasix 40 mg as needed if patient gets short of breath during or post transfusions. Patient was started on regular diet. Discussed with Dr. Ma. I have discussed my assessment with Gregg VALDIVIA and orders have been reviewed. Code Visit Inpatient E&M: 68247 Subs Hosp L3
[2018-07-01 17:01] LABS: Bedside Glucose 117 mg/dL (70-110)
[2018-07-01] MEDS: HYDROCHLOROTHIAZIDE 12.5 MG CAPSULE PO ×2 (18:12→18:13)
[2018-07-01] MEDS: Lisinopril 10 MG Tablet PO ×2 (18:12)
[2018-07-01 21:00] LABS: Absolute Lymphocyte Count 2.22 X10^3/ul (0.83-4.51); Absolute Neutrophil Count 5.3 X10^3/uL (2.0-7.7); Basophil# 0.02 X10^3/uL; Basophil% 0.2 % (0-1); Eosinophil# 0.46 X10^3/uL; Eosinophils% 5.2 % (0-5); Hematocrit 28.2 % (40-54); Lymphocyte # 2.22 X10^3/ul (4.0); Lymphocyte % 25.3 % (19-41); Mean Corp Hgb Conc 31.9 g/gl (32-36); Mean Corpuscular Hgb 29.4 pg (27.0-32.0); Mean Corpuscular Volume 92.2 fL (80-94); Mean Platelet Vol. 10.2 fl (6.2-12.0); Monocyte# 0.75 X10^3/uL; Monocyte% 8.5 % (0-10); Neutrophil % 60.5 % (47-70); POSITIVE COUNT NO; POSITIVE DIFFERENTIAL NO; POSITIVE MORPHOLOGY NO; Platelet Count 203 K/mm3 (150-450); RBC Distribution Width CV 14.6 % (11.6-14.6); RBC Distribution Width SD 48.1 fl (35.1-43.9); Red Blood Count 3.06 M/mm3 (4.6-6.2); White Blood Count 8.8 K/mm3 (4.4-11.0)
[2018-07-01] MEDS: Atorvastatin Calcium 40 MG Tablet PO (21:21)
[2018-07-01] MEDS: Levothyroxine 137 MCG Tablet 205.5 MCG PO (21:21)
[2018-07-01] MEDS: Tamsulosin HCl 0.4 MG Capsule PO (21:22)
[2018-07-01] MEDS: Pantoprazole Sodium 40 MG Tablet PO (21:26)
[2018-07-01 23:25] LABS: Bedside Glucose 88 mg/dL (70-110)
[2018-07-02] MEDS: 0.9% Normal Saline 1,000 ML 100 ML IV (01:29)
[2018-07-02 02:59] VITALS: PULSE 73
[2018-07-02 03:15] VITALS: BP 98/46; PULSE 85; RESP 18; TEMP 36.8; O2SAT 97
[2018-07-02 07:06] VITALS: PULSE 74
[2018-07-02 07:13] LABS: Hematocrit 26.6 % (40-54); Hemoglobin 8.7 g/dl (13.0-16.5)
[2018-07-02 07:16] LABS: Bedside Glucose 121 mg/dL (70-110)
[2018-07-02 07:45] VITALS: O2SAT 95
[2018-07-02 08:50] VITALS: BP 112/49; PULSE 79; RESP 18; TEMP 37; O2SAT 96
--- NOTE | 2018-07-02 10:40 | PCM.DC ---
- Discharge Diagnoses Current Active Problems: Current Active and Chronic Problems Duodenal ulcer (Acute) GI bleed (Acute) You will use the following diet at home:: Calorie/Carbohydrate Controlled (specify 1200, 1400, etc) - 1800 calories per day, Cardiac - <2 g sodium daily Your food should be the consistency of: Regular Your liquids should be the consistency of: Regular/Thin Discharge Activity: Return to Normal Activity Allergies/Adverse Reactions: Allergies Penicillins Allergy (Verified 06/29/18 13:58) Hives tetracycline Allergy (Verified 06/29/18 13:58) Hives Medications to take at Discharge Atorvastatin Calcium 40 mg PO QHS 06/29/18 Carvedilol 12.5 mg PO BID 06/29/18 Hydrochlorothiazide 12.5 mg PO DAILY 06/29/18 Levothyroxine [Synthroid] 137 mcg PO DAILY 06/29/18 Levothyroxine [Synthroid] 205.5 mcg PO QWEEK 06/29/18 Lisinopril [Zestril] 10 mg PO DAILY 06/29/18 Spironolactone [Aldactone] 25 mg PO DAILY 06/29/18 Tamsulosin HCl [Flomax] 0.4 mg PO DAILY 06/29/18 Ferrous Sulfate [Iron] 325 mg PO TID #90 tab 07/02/18 Pantoprazole Sodium [Protonix] 40 mg PO BID #60 tab 07/02/18 The following prescriptions were given: Ferrous Sulfate [Iron] 325 mg PO TID #90 tab Pantoprazole Sodium [Protonix] 40 mg PO BID #60 tab Orders to be completed after discharge: CBC-Complete Blood Cnt No Diff Time Frame: 2 Days, Location: Laboratory Primary Care Physician: Suki Brewer MD [Primary Care Provider] - Please follow up with your Primary Care Physician in: 1-2 weeks Test Results: Test results from this visit will be discussed in further detail at your follow-up appointment, if applicable. Please Follow Up With: Kaitlin Ma MD When: 1-2 weeks Proposed Discharge Date: 07/02/18
--- NOTE | 2018-07-02 11:07 | PCM.PN.SRG ---
Subjective: patient had melena yesterday, transfused 1.5 u of blood with response of hct from 24 to 26 Denies abdominal pain - Physical Exam General: Alert, Oriented x3 Oral: Moist Mucosa Neck: Supple Lungs: Normal air movement Abdomen: Bowel Sounds Present, Soft Vital Signs Temp Pulse Resp BP Pulse Ox 98.6 F 79 18 112/49 L 96 07/02/18 08:50 07/02/18 08:50 07/02/18 08:50 07/02/18 08:50 07/02/18 08:50 Oxygen Delivery Method Room Air Weight: 112.536 kg Intake and Output for Last 24 Hours 06/30/18 07/01/18 07/02/18 23:59 23:59 23:59 Intake Total 2994 / 2994 2916 / 2916 585 / 585 Balance 2994 / 2994 2916 / 2916 585 / 585 Laboratory Tests Past 24 Hrs 07/01/18 07/02/18 20:39 06:03 WBC 8.8 RBC 3.06 L Hgb 9.0 L 8.7 L Hct 28.2 L 26.6 L MCV 92.2 MCH 29.4 MCHC 31.9 L RDW 14.6 RDW Differential 48.1 H Plt Count 203 MPV 10.2 Immature Gran % (Auto) 0.300 Neut % (Auto) 60.5 Lymph % (Auto) 25.3 [place] % (Auto) 8.5 Eos % (Auto) 5.2 H Baso % (Auto) 0.2 Absolute Neuts (auto) 5.3 Absolute Lymphs (auto) 2.22 Total Counted Not Reportable POC Glucose 07/02/18 07/01/18 07/01/18 07:03 21:29 16:47 POC Glucose 121 H 88 117 H Medical Necessity - Tobacco Use Smoking Status: Former smoker Tobacco Use: Cigarettes Assessment/Plan All Active Problems Duodenal ulcer (Acute) GI bleed (Acute) Impression: duodenal ulcer Plan: Patient can be on regular diet I have told patient to have serum H/H checked at [facility] tomorrow, I will call with results I will also make referral for patient to be seen by public health epidemiologist given his history of CAD
--- NOTE | 2018-07-02 13:15 | PCM.DC.SUM ---
<Gregg Mendez - Last Filed: 07/02/18 13:18> Discharge Date and Diagnosis Date of Admission: 06/29/18 Date of Discharge: 07/02/18 - Primary Discharge Diagnosis Acute blood loss anemia 2/2 upper gi bleed 2/2 duodenal ulcer Prediabetes Hx TIA Hypothyroidism HTN GERD - Secondary Discharge Diagnosis Chronic Problems Hx-TIA (transient ischemic attack) (Chronic) Hypothyroidism (Chronic) HLD (hyperlipidemia) (Chronic) Gastroesophageal reflux disease (Chronic) Benign essential HTN (Chronic) Hospital Course and Treatment Imaging Results: RAD/Chest 1 View (Portable) IMPRESSION: No acute abnormality is seen. Consults: Anil - surgery Operations: None Procedures: EGD Summary of Care Provided: Physical exam on day of discharge: General: Resting comfortably NAD Psych: A/Ox3 normal affect HEENT: PEARRLA AT NC Neck: Supple NT CV: RRR no m/t/r/g/h Resp: CTA Abd: [id number] Soft NT no guarding or rigidity, obese. Ext: DP2+= no edema Skin: W/D normal turgor Lymph/Heme: No active bleeding or adenopathy Neuro: CN2-12 intact Hospital course: The patient is a 67 year old M with a hx of TIA on asa/plavix, hx hypothyroidism, htn, HLD, who presented to the ER with chief complaintof coffee ground emesis and black tarry stools. He was found to be anemic having gone from Hgb 14 to 10.8. He was taken for an EGD from the ER, and started on a protonix drip. He was found to have a duodenal ulcer. He was taken to the PCU for monitoring overnight. He did admit to using NSAIDS heavily the week prior for shoulder pain. Aspirin and plavix were stopped. His Hgb dropped to 7.5 and two more units were given. He had no further active bleeding. He did have one BM after the EGD prior to discharge and this was black and felt to be old blood clearing. He was prescribed Protonix BID and Iron TID at discharge. Continue to hold asa/plavix. He will need an H/H in 2 days and to follow up with his PCP and Dr. Ma. While here he also had elevated blood sugars - an A1C was checked and found to be 6.6 indicating prediabetes to diabetes. He was given diabetic education, he was instructed to have an 1800 calorie diet at discharge, and strongly advised to discuss the possibility of starting medication for this with his PCP. He was discharged home in stable condition. This patient was seen by Gregg Mendez PA-C under the supervision of Doctor Angel. [] Discharge Diet: Low fat/ Low Cholesterol, 1800 Calorie Control Diet, 2000 mg Sodium Diet Discharge Activity: Return to Normal Activity Home Medications: Medications to take at Discharge Atorvastatin Calcium 40 mg PO QHS 06/29/18 Carvedilol 12.5 mg PO BID 06/29/18 Hydrochlorothiazide 12.5 mg PO DAILY 06/29/18 Levothyroxine [Synthroid] 137 mcg PO DAILY 06/29/18 Levothyroxine [Synthroid] 205.5 mcg PO QWEEK 06/29/18 Lisinopril [Zestril] 10 mg PO DAILY 06/29/18 Spironolactone [Aldactone] 25 mg PO DAILY 06/29/18 Tamsulosin HCl [Flomax] 0.4 mg PO DAILY 06/29/18 Ferrous Sulfate [Iron] 325 mg PO TID #90 tab 07/02/18 Pantoprazole Sodium [Protonix] 40 mg PO BID #60 tab 07/02/18 Following Prescrptions Were Given to Patient: Ferrous Sulfate [Iron] 325 mg PO TID #90 tab Pantoprazole Sodium [Protonix] 40 mg PO BID #60 tab Primary Care Physician: Suki Brewer MD [Primary Care Provider] - Please follow up with your Primary Care Physician in: 1-2 weeks Please Follow Up With: Kaitlin Ma MD When: 1-2 weeks Disposition: Home Minutes spent on discharge:: 35 Patient Condition:: Stable Medical Necessity - Tobacco Use Smoking Status: Former smoker Tobacco Use: Cigarettes Meaningful Use Info Meaningful Use Diagnoses (Choose all that apply): None applicable <George Ortiz - Last Filed: 07/02/18 17:23> Discharge Date and Diagnosis - Secondary Discharge Diagnosis Chronic Problems Hx-TIA (transient ischemic attack) (Chronic) Hypothyroidism (Chronic) HLD (hyperlipidemia) (Chronic) Gastroesophageal reflux disease (Chronic) Benign essential HTN (Chronic) Hospital Course and Treatment Summary of Care Provided: This patient was seen in conjunction with Gregg VALDIVIA. I have independently interviewed and examined the patient and reviewed pertinent history, examination findings, laboratory and plan of management. I have reviewed the note and agree with the documented findings with the few additional points. In brief, patient is admitted for acute blood loss secondary to upper GI bleed due to large duodenal ulcer. EGD showed duodenal ulcer broad-based with no active bleeding anterior in the first part of duodenum. Hemoglobin slowly drifted down from 8-7.5 grams percent therefore patient was ordered 2 units of PRBC but got 1.5 units. Posttransfusion H&H 9 g percent and then 8.7 g percent. This was discussed with surgeon Dr. Ma and she said she follow-up with patient with H&H tomorrow with telephonic call and sooner follow-up. Discharge medication reconciliation done. Follow-up instructions completed. With history of possible CHF, patient needs cardiology follow-up. Patient is being discharged on 40 mg Protonix twice daily and follow-up with Dr. Ma as mentioned above. I have discussed my assessment with Gregg VALDIVIA and orders have been reviewed. Total time spent, exact 35 minutes on discharge meds reconciliation, examination, review of imaging and blood test and discussion with the patient on follow-up instructions. [] Microbiology Past 72 Hours 06/29/18 15:10 Stool Stool Occult Blood (KAY) - Final Occult Blood Positive Laboratory Results 06/29/18 16:36: Crossmatch See Detail 07/01/18 20:39: WBC 8.8, RBC 3.06 L, Hgb 9.0 L, Hct 28.2 L, MCV 92.2, MCH 29.4, MCHC 31.9 L, RDW 14.6, RDW Differential 48.1 H, Plt Count 203, MPV 10.2, Immature Gran % (Auto) 0.300, Neut % (Auto) 60.5, Lymph % (Auto) 25.3, Parke % (Auto) 8.5, Eos % (Auto) 5.2 H, Baso % (Auto) 0.2, Absolute Neuts (auto) 5.3, Absolute Lymphs (auto) 2.22, Total Counted Not Reportable 07/01/18 21:29: POC Glucose 88 07/02/18 06:03: Hgb 8.7 L, Hct 26.6 L 07/02/18 07:03: POC Glucose 121 H Code Visit Inpatient E&M: 98041 Disch Hosp
--- NOTE | 2018-07-03 14:55 | CASEMGMT ---
OBI FONTAINE Discharge F/U Phone Call LACKai: 11 Strata: 3 Discharge date: 07/02/18 Call date: 07/03/18 Call time: [id number] Duration: 7 minutes Admission dx: Upper GI bleed Pt states has 'not been good but not been too bad.' Pt states just feels tired since discharge yesterday and isn't 'quite back to myself.' Pt states he spoke with his daughter who is an RN at [employer] and she informed him that it will take a couple days to get back to feeling like yourself. This RN CM reinforced the same to pt at this time. Pt voices no further questions regarding discharge instructions or medications at this time. Pt states that he had bloodwork drawn this am and received call from Dr. Ma stating his Hgb was up to 10. Pt states concerns about when next bloodwork to be drawn and this RN provided number to Dr. Ma's office for pt at this time and advised him to call and speak with engineering secretary or nurse and they would get message to Dr. Ma and then notify him at that time, voices understanding. Pt states has f/u appt's scheduled and plans to keep. Pt voices no further questions/concerns/needs at this time. Pt thanked this RN ZHEN for the call at this time. SStaten OBI FONTAINE
== END 2018-07-02 10:58 | disposition home or self-care (01) | DRG 378 ==
LOC: ED 14:47 → PCU 17:21
PROVIDERS: Physician Assistant; Surgery; Admitting Provider Family Medicine; Emergency Provider Emergency Medicine; Family Provider Internal Medicine; PCP Internal Medicine; Visit Provider Internal Medicine
PROC: 0DJ08ZZ Inspection of Upper Intestinal Tract, Via Natural or Artificial Opening Endoscopic (ICD-10-PCS; CPT 43235; principal; 2018-06-29 18:00)
DX: K26.4 Chronic or unspecified duodenal ulcer with hemorrhage (principal); I42.0 Dilated cardiomyopathy; D62 Acute posthemorrhagic anemia; I44.7 Left bundle-branch block, unspecified; G47.33 Obstructive sleep apnea (adult) (pediatric); E03.9 Hypothyroidism, unspecified; E78.5 Hyperlipidemia, unspecified; R73.03 Prediabetes; K21.9 Gastro-esophageal reflux disease without esophagitis; I10 Essential (primary) hypertension; Z86.73 Personal history of transient ischemic attack (TIA), and cerebral infarction without residual deficits
CPT/HCPCS: 36415; 71045; 80048; 80053; 81001; 82274; 82962; 83036; 83605; 83690; 83735; 84443; 84484; 85014; 85018; 85025; 85610; 85730; 86850; 86900; 86920; 93005; 99284; J7030; P9016; J3490

== ENCOUNTER → 2018-08-04 07:40 | Outpatient (CLI) | payer MEDICARE, OTHER, SELFPAY ==
[2018-08-04 09:00] LABS: Absolute Neutrophil Count 4.6 X10^3/uL (2.0-7.7); Basophil# 0.07 X10^3/uL; Basophil% 0.9 % (0-1); Eosinophil# 0.34 X10^3/uL; Eosinophils% 4.6 % (0-5); Mean Corp Hgb Conc 31.7 g/gl (32-36); Mean Corpuscular Hgb 29.5 pg (27.0-32.0); Mean Corpuscular Volume 93.2 fL (80-94); Mean Platelet Vol. 10.5 fl (6.2-12.0); Monocyte# 0.63 X10^3/uL; Monocyte% 8.5 % (0-10); Neutrophil # 4.61 X10^3/uL (2.7-7.7); Neutrophil % 62.5 % (47-70); Platelet Count 239 K/mm3 (150-450); RBC Distribution Width CV 14.2 % (11.6-14.6); RBC Distribution Width SD 48.1 fl (35.1-43.9); White Blood Count 7.4 K/mm3 (4.4-11.0)
[2018-08-04 09:01] LABS: POSITIVE COUNT NO; POSITIVE DIFFERENTIAL NO; POSITIVE MORPHOLOGY NO
== END ==
PROVIDERS: Family Provider Internal Medicine; PCP Internal Medicine; Referring Provider Internal Medicine; Visit Provider Internal Medicine
DX: D64.9 Anemia, unspecified (principal)
CPT/HCPCS: 36415; 85025

== ENCOUNTER → 2018-08-09 10:29 | Outpatient (CLI) | payer MEDICARE, OTHER, SELFPAY ==
--- NOTE | 2018-08-09 10:32 | ECHOD_ITS ---
Reason For Study: CHF Procedure This was a 2D Doppler, Color Flow transthoracic echocardiogram. The study was technically difficult. Contrast injection was performed. Exam performed in department. Left Ventricle Normal LV size. Moderate segmental systolic dysfunction (see wall motion). The estimated ejection fraction is 35 %. Diastolic function is indeterminate. Anterio-Basal: Hypokinetic. Infero-Basal: Hypokinetic. Basal inferoseptal: Hypokinetic. Basal anteroseptal: Hypokinetic. Mid-Anterior : Hypokinetic. Mid-Lateral : Hypokinetic. Mid-Posterior: Hypokinetic. Mid-Inferior: Hypokinetic. Mid- inferoseptal : Akinetic. Mid-anteroseptal : Dyskinetic. Anterior [place] : Akinetic. Inferior [place] : Hypokinetic. Lateral [place] : Hypokinetic. Septal [place] : Akinetic. Right Ventricle Normal RV size. Normal systolic function. Atria Normal left atrium. Normal right atrium. No doppler evidence for ASD. Mitral Valve There is mild mitral annular calcification. Mild focal mitral valve calcification of the anterior leaflet. Trivial mitral valve insufficiency. Tricuspid Valve Normal tricuspid valve. Trivial tricuspid valve insufficiency. Right ventricular systolic pressure estimated to be 28 mmHg. Aortic Valve Trisinus/trileaflet aortic valve. Mild focal aortic valve thickening. Pulmonic Valve The pulmonic valve is not well visualized. Trivial pulmonic valve insufficiency. Great Vessels Normal sized aortic root. Pericardium/Pleural No pericardial effusion. Medication 22 gauge I.V. with prn adaptor inserted into right arm. Diluted definity 4ml given slow IV push to enhance endocardial definition. MMode/2D Measurements & Calculations LVIDd: 4.4 cm IVSd: 1.2 cm Ao root diam: 3.3 cm LVIDs: 3.4 cm LVPWd: 1.3 cm LA dimension: 4.0 cm RVDd: 3.8 cm FS: 22.5 % LAV(MOD-bp): 38.7 ml LVAd ap4: 40.1 cm2 SV(MOD-sp4): 82.6 ml LAV(MOD-bp) Indexed: 17.2 ml/m2 EDV(MOD-sp4): 151.5 ml LAV(MOD-sp2): 42.5 ml EDV(sp4-el): 158.0 ml LAV(MOD-sp4): 33.9 ml LVAs ap4: 25.3 cm2 ESV(MOD-sp4): 68.9 ml ESV(sp4-el): 70.6 ml EF(MOD-sp4): 54.5 % EF(sp4-el): 55.3 % SV(sp4-el): 87.4 ml LA A4 area: 14.1 cm2 RA A4 area: 16.0 cm2 Doppler Measurements & Calculations MV E max ventura: 65.5 cm/sec Lat Peak E' Ventura: 7.3 cm/sec Med Peak E' Ventura: 5.3 cm/sec MV A max ventura: 105.6 cm/sec E/E' lat: 8.9 E/E' med: 12.4 MV E/A: 0.62 Ao V2 max: 116.0 cm/sec LV V1 max: 83.3 cm/sec PA V2 max: 83.1 cm/sec Ao max P.4 mmHg LV V1 max P.8 mmHg TR max ventura: 247.9 cm/sec TR max P.6 mmHg Interpretation Summary The study was technically difficult. Contrast injection was performed. Moderate segmental systolic dysfunction (see wall motion). The estimated ejection fraction is 35 %. There is mild mitral annular calcification. Mild focal mitral valve calcification of the anterior leaflet. Trivial mitral valve insufficiency. Trivial tricuspid valve insufficiency. Mild focal aortic valve thickening. Trivial pulmonic valve insufficiency. Right ventricular systolic pressure estimated to be 28 mmHg. Diastolic function is indeterminate. Ordering Physician: Oseas Wade Referring Physician: IESHA MUNOZ Performed By: Soco Berg RDCS
== END ==
PROVIDERS: Family Provider Internal Medicine; PCP Internal Medicine; Referring Provider Internal Medicine Cardiovascular Disease; Visit Provider Internal Medicine Cardiovascular Disease
DX: Z01.818 Encounter for other preprocedural examination (principal); I25.10 Atherosclerotic heart disease of native coronary artery without angina pectoris; I42.0 Dilated cardiomyopathy
CPT/HCPCS: 93306; Q9957; A4216; C8929

== ENCOUNTER → 2018-09-28 16:45 | Outpatient (CLI) | payer MEDICARE, OTHER, SELFPAY ==
[2018-08-08 08:14] VITALS: BMI 34.8
--- NOTE | 2018-09-28 09:55 | CYSPIN_PTH ---
PATIENT: MAYE BAEZ [facility] U#:[id number] AGE/SX: 74/M ROOM: RE09/28/[address]: Dr. Rajinder Mccarty MD : 1950 BED: DIS: SPEC #: [id number] RECD: 09/29/18 08:19 STATUS: ARIK AIDAN #: [id number] MANNY: 09/28/18 09:[address]: Rajinder Mccarty DEPT: CYTOLOGY RECD BY: Carmine Tavera ENTERED: 09/29/18 08:20 SP TYPE: CYSPIN FL OTHR DR: Dr. Suki Brewer MD Tissues: Urine Procedures: Pap Stain (control) Special Stain Group II Cytospin Fluid HEADER OPERATION: Not noted PRE-OP DIAGNOSIS: Hematuria TISSUE SUBMITTED: Urine for cytology DIAGNOSIS CYTOLOGY Urine for cytology (cytospin): Negative for malignant cells. Acute inflammation. SJ:bhavin 12/10/18 COMMENT Clinical correlation and appropriate follow up are necessary. CYTOLOGY STUDY Slides are reviewed. CYTOLOGY GROSS Received is 55 ml of clear yellow fluid labeled with the patient's name and and designated per the requisition as urine. Submitted for cytology preparation. 09/29/18 TC:2 CPT: 08956
[2018-09-28 18:08] LABS: Cytology, Body Fluid / CSF SEE PATHOLOGY REPORT
== END ==
PROVIDERS: Family Provider Internal Medicine; PCP Internal Medicine; Referring Provider Urology; Visit Provider Urology
DX: R31.9 Hematuria, unspecified (principal)
CPT/HCPCS: 88108; 88313

== ENCOUNTER → 2018-10-02 07:43 | Outpatient (CLI) | payer MEDICARE, OTHER, SELFPAY ==
[2018-08-08 08:14] VITALS: BMI 34.8
--- NOTE | 2018-10-02 07:46 | US_ITS ---
STUDY: RENAL ULTRASOUND - COMPLETE REASON FOR EXAM: Male, 67 years old. Cysts, hematuria TECHNIQUE: Ultrasound evaluation of the kidneys was performed with real-time and static thompson-scale imaging. COMPARISON: None. FINDINGS: RIGHT KIDNEY: Normal location of the right kidney, which is normal in size. The right kidney measures 11.5 x 6.2 x 6.2 cm. There is a normal cortex of the right kidney. The renal cortex measures 1.9 cm. There is a 1.4 x 1.7 x 1.3 cm right renal cyst. There is a 4 mm stone. There is no right hydronephrosis. DISTAL RIGHT URETER: There is non-visualization of the distal right ureter. There is a visualized right ureteral jet. LEFT KIDNEY: Normal location of the left kidney, which is normal in size. The left kidney measures 12.6 x 5.6 x 5.9 cm. There is a normal cortex of the left kidney. The renal cortex measures 1.5 cm. There are left renal cysts measuring 1.1 to 1.3 cm. There are no left renal calculi. There is no left hydronephrosis. DISTAL LEFT URETER: There is non-visualization of the distal left ureter. There is a visualized left ureteral jet. BLADDER: The distended urinary bladder has a volume of 138 ml. The post void urinary bladder has a volume of 15 ml. There is a normal wall thickness of the distended urinary bladder. There is no demonstrated mass within the urinary bladder. There are no demonstrated bladder calculi. US/Kidney and Bladder IMPRESSION: Mild post void residual in the urinary bladder. Right renal cyst and nonobstructive stone. Left renal cysts. Electronically Signed: Yosi Pedro DO at 23:02 EST Tel [phone], Service support ,
== END ==
PROVIDERS: Family Provider Internal Medicine; PCP Internal Medicine; Referring Provider Urology; Visit Provider Urology
DX: N28.1 Cyst of kidney, acquired (principal); N20.0 Calculus of kidney; R31.9 Hematuria, unspecified
CPT/HCPCS: 76770

== ENCOUNTER → 2018-11-09 07:25 | Outpatient (CLI) | payer MEDICARE, OTHER, SELFPAY ==
[2018-11-06 08:08] VITALS: BMI 35.5
[2018-11-09 08:57] LABS: Absolute Lymphocyte Count 1.99 X10^3/ul (0.83-4.51); Absolute Neutrophil Count 4.3 X10^3/uL (2.0-7.7); Basophil# 0.05 X10^3/uL; Basophil% 0.7 % (0-1); Eosinophil# 0.46 X10^3/uL; Eosinophils% 6.2 % (0-5); Hemoglobin 14.4 g/dl (13.0-16.5); Lymphocyte # 1.99 X10^3/ul (4.0); Lymphocyte % 26.8 % (19-41); Mean Corp Hgb Conc 31.3 g/gl (32-36); Mean Corpuscular Hgb 28.1 pg (27.0-32.0); Mean Corpuscular Volume 89.8 fL (80-94); Mean Platelet Vol. 11.3 fl (6.2-12.0); Monocyte# 0.61 X10^3/uL; Monocyte% 8.2 % (0-10); Neutrophil # 4.28 X10^3/uL (2.7-7.7); Neutrophil % 57.6 % (47-70); POSITIVE COUNT NO; POSITIVE DIFFERENTIAL NO; POSITIVE MORPHOLOGY NO; Platelet Count 178 K/mm3 (150-450); RBC Distribution Width CV 14.6 % (11.6-14.6); RBC Distribution Width SD 47.4 fl (35.1-43.9); Red Blood Count 5.12 M/mm3 (4.6-6.2); White Blood Count 7.4 K/mm3 (4.4-11.0)
[2018-11-09 09:16] LABS: Microalbumin,Random Urine < 5.0 mg/L (NO RANGE EST.)
[2018-11-09 09:29] LABS: Anion Gap 7 (5-15); BUN 18 mg/dL (7-18); BUN/Creat Ratio 16.7 RATIO (10-20); Calcium,Total 8.3 mg/dL (8.5-10.1); Chloride 106 mmol/L (98-107); Cholesterol 115 mg/dL (200); Creatinine, Serum 1.08 mg/dL (0.70-1.30); EST Glomerular Filtration Rate 73 mL/min (>60); Est Glom Filt Rate - Afr Amer 88 mL/min (>60); Glucose 123 mg/dL (74-106); High Density Lipoprotein 45 mg/dL; Potassium 4.1 mmol/L (3.5-5.1); Sodium Level 140 mmol/L (136-145); T4 Free Direct 1.31 ng/dL (0.76-1.46); Thyroid Stim Hormone (TSH) 0.24 uIU/mL (0.358-3.74); Triglycerides 101 mg/dL; Very Low Density Lipoprotein 20 mg/dL (5-40)
--- OUTSIDE RECORDS SUMMARY | 2019-01-13 19:46 | XMS RPT_ITS ---
:1950 Author Organization [place] Support Name Relationship Address Phone YISEL BAEZ Unavailable [id number] + [place] [address] LEONARDO BAEZ Unavailable Unavailable + [place] [address] R Unavailable Unavailable Unavailable YISEL BAEZ Unavailable [address] + [place] [address] LEONARDO BAEZ Unavailable . + [place] [address] R Unavailable Unavailable Unavailable YISEL BAEZ Unavailable [address] + [place] [address] LEONARDO BAEZ Unavailable Unavailable + [place] [address] R Unavailable Unavailable Unavailable YISEL BAEZ Unavailable [address] + [place] [address] LEONARDO BAEZ Unavailable Unavailable + [place] [address] R Unavailable Unavailable Unavailable YISEL BAEZ Unavailable [address] + [place] [address] LEONARDO BAEZ Unavailable Unavailable + [place] [address] R Unavailable Unavailable Unavailable YISEL BAEZ Unavailable [address] + [place] [address] LEONARDO BAEZ Unavailable Unavailable + [place] [address] R Unavailable Unavailable Unavailable YISEL BAEZ Unavailable [address] + [place] [address] LEONARDO BAEZ Unavailable . + [place] [address] R Unavailable Unavailable Unavailable YISEL BAEZ Unavailable [id number] + [place] [address] LEONARDO BAEZ Unavailable Unavailable + [place] [address] R Unavailable Unavailable Unavailable YISEL BAEZ Unavailable [address] + [place] [address] LEONARDO BAEZ Unavailable . + ., [place] . R Unavailable Unavailable Unavailable YISEL BAEZ Unavailable [address] + [place] [address] LEONARDO BAEZ Unavailable . + ., [place] . R Unavailable Unavailable Unavailable YISEL BAEZ Unavailable [address] + [place] [address] LEONARDO BAEZ Unavailable . + ., [place] . R Unavailable Unavailable Unavailable YISEL BAEZ Unavailable [address] + [place] [address] R Unavailable Unavailable Unavailable YISEL BAEZ Unavailable [address] + [place] [address] LEONARDO BAEZ Unavailable . + ., [place] . R Unavailable Unavailable Unavailable YISEL BAEZ Unavailable [address] + [place] [address] LEONARDO BAEZ Unavailable . + ., [place] . R Unavailable Unavailable Unavailable YISEL BAEZ Unavailable [address] + [place] [address] LEONARDO BAEZ Unavailable . + ., [place] . R Unavailable Unavailable Unavailable YISEL BAEZ Unavailable [address] + [place] [address] R Unavailable Unavailable Unavailable Care Team Providers Name Role Phone Oleamayae, Efewongbe Primary Care Unavailable Wild Ovalles Admitting Unavailable Kaitlin Ma Consulting Unavailable George Ortiz Attending Unavailable Suki Brewer Attending Unavailable Ethanghe, Efewongbe Referring Unavailable Oleghe, Efewongbe Primary Care Unavailable George Ortiz Attending Unavailable Wild Ovalles Admitting Unavailable Oleghe, Efewongbe Primary Care Unavailable Anil Kaitlin Consulting Unavailable Angel, George Consulting Unavailable Rajinder Mccarty Attending Unavailable Rajinder Mccarty Referring Unavailable Oleghe, Efewongbe Primary Care Unavailable Mauro, Oseas Attending Unavailable Oseas Wade Referring Unavailable Mauro, Oseas Attending Unavailable MoodsolomonpaOseas porter Referring Unavailable Oleghe, Efewongbe Primary Care Unavailable Oleghe, Efewongbe Attending Unavailable Oleghe, Efewongbe Referring Unavailable Oleghe, Efewongbe Primary Care Unavailable MoodOseas hyaes Attending Unavailable Oleghe, Efewongbe Referring Unavailable Oleghe, Efewongbe Attending Unavailable Sebastiánampyamile Halle Referring Unavailable Oleghe, Efewongbe Primary Care Unavailable Wild Ovalles Admitting Unavailable Oleghe, Efewongbe Primary Care Unavailable Feliciano Maa Consulting Unavailable George Ortiz Attending Unavailable Angel, George Consulting Unavailable Oleghe, Efewongbe Attending Unavailable Oleghe, Efewongbe Referring Unavailable Wild Ovalles Admitting Unavailable Oleghe, Efewongbe Primary Care Unavailable Feliciano Maa Consulting Unavailable George Ortiz Attending Unavailable Angel, George Consulting Unavailable Wild Ovalles Admitting Unavailable Wild Ovalles Attending Unavailable Oleghe, Efewongbe Primary Care Unavailable Wild Ovalles Consulting Unavailable Rajinder Mccarty Attending Unavailable Rajinder Mccarty Referring Unavailable Oleghe, Efewongbe Primary Care Unavailable Oleghe, Efewongbe Attending Unavailable Oleghe, Efewongbe Referring Unavailable Criss Keita Attending Unavailable ANN MARIE MAURICIO Referring Unavailable ANN MARIE, MAURICIO Referring Unavailable ANN MARIETIERRAEN Attending Unavailable SEBASTIÁNAMPTK JESUSA Jennie Referring Unavailable TALAMPAS, HALLE D Referring Unavailable TALAMPAS, HALLE D Attending Unavailable TALAMPAS, HALLE D Referring Unavailable ADRIAN TOVAR (SHEA) Attending Unavailable ADRIAN TOVAR (SHEA) Referring Unavailable ADRIAN TOVAR (SHEA) Referring Unavailable TALAMPAS, HALLE D Referring Unavailable TALAMPAS, HALLE D Attending Unavailable TALAMPAS, HALLE D Referring Unavailable FELICIANO MAA DIDIER Referring Unavailable MA, KAITLIN DIDIER Attending Unavailable MA, KAITLIN DIDIER Referring Unavailable JACIEL STEPHEN (LEAD ASSISTANT MANAGER) Attending Unavailable ANN MARIE, MAURICIO Attending Unavailable TALAMPAS, HALLE Referring Unavailable TALAMPAS, HALLE Primary Care Unavailable ANN MARIE, MAURICIO Referring Unavailable TALAMPAS, HALLE Primary Care Unavailable ANN MARIE, MAURICIO Referring Unavailable TALAMPAS, HALLE Primary Care Unavailable ANN MARIE, MAURICIO Referring Unavailable TALAMPAS, HALLE Primary Care Unavailable ANN MARIE, MAURICIO Referring Unavailable TALAMPAS, HALLE Primary Care Unavailable ANN MARIE, MAURICIO Referring Unavailable TALAMPAS, HALLE Primary Care Unavailable ANN MARIE, MAURICIO Referring Unavailable TALAMPAS, HALLE Primary Care Unavailable PROBLEMS PROBLEMS DATE TYPE CONDITION / CODE ATTENDING STATUS SOURCE 11/09/2018 Unknown I25.10 - [place], Active [place] Atherosclerotic [facility] heart disease of Hospital [place] coronary Repository artery without angina pectoris / I25.10(ICD-10) 11/09/2018 Unknown I10 - Essential O[place]he, Active [place] (primary) [facility] hypertension / Hospital I10(ICD-10) Repository 11/09/2018 Unknown E03.9 - Oleghe, Active [place] Hypothyroidism, [facility] unspecified / Hospital E03.9(ICD-10) Repository 11/09/2018 Unknown E11.9 - Type 2 Oleghe, Active [place] diabetes mellitus [facility] without Hospital complications / Repository E11.9(ICD-10) 2018 Unknown 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, 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) / Repository D50.0(ICD-10) 08/03/2018 Unknown I25.2 - Old [place], Active [place] myocardial [facility] infarction / Hospital I25.2(ICD-10) Repository 08/03/2018 Unknown I42.0 - Dilated [place], Active [place] cardiomyopathy / [facility] I42.0(ICD-10) Hospital Repository 08/03/2018 Unknown Z01.810 - Encounter [place], Active [place] for preprocedural [facility] cardiovascular Hospital examination / Repository Z01.810(ICD-10) 07/17/2018 Active Unknown / ANN MARIE, Active [place] UNK(Unknown) [facility] Clinic Other [place] Repository 07/17/2018 Admitting Unknown / ANN MARIE, Active [place] [facility] diagnosis UNK(Unknown) [facility] Repository 07/12/2018 Active Peripheral vascular NA Active [place] disease, unspecified Clinic Other / I73.9(ICD-10) [place] Repository 07/12/2018 Active Occlusion and NA Active [place] stenosis of left Clinic Other carotid artery / [place] I65.22(ICD-10) Repository 07/11/2018 Unknown D64.9 - Anemia, O[place]he, Active [place] unspecified / [place] [facility] D64.9(ICD-10) Hospital Repository 07/03/2018 Active Duodenal ulcer, NA Active [place] unspecified as acute Clinic Main or chronic, without [place] hemorrhage or Repository perforation / K26.9(ICD-10) 07/03/2018 Active Acute NA Active [place] posthemorrhagic Clinic Main anemia / D62(ICD-10) [place] Repository 07/25/2015 Active Type 2 diabetes NA Active [place] mellitus without Clinic Main complications / [place] E11.9(ICD-10) Repository 06/03/2018 Active Encounter for other NA Active [place] specified special Clinic Main examinations / [place] Z01.89(ICD-10) Repository 06/03/2018 Active Other m[facility]p NA Active [place] (current) drug Clinic Main therapy / [place] Z79.899(ICD-10) Repository 03/03/2018 Active Elevated prostate NA Active [place] specific antigen Clinic Main (PSA) / [place] R97.20(ICD-10) Repository 07/25/2015 Active Essential (primary) NA Active [place] hypertension / Clinic Main I10(ICD-10) [place] Repository 07/25/2015 Active Hypothyroidism, NA Active [place] unspecified / Clinic Main E03.9(ICD-10) [place] Repository 06/04/2011 Active Pure NA Active [place] hypercholesterolemia Clinic Main , unspecified / [place] E78.00(ICD-10) Repository PROCEDURES PROCEDURES No Procedure Records FoundRESULTS RESULTS PROGRESS Observed: 11/17/2018 Status: COMPLETED Source: [place] 11:09 AM [facility] REPOSITORY HNO ID: [id number] Author: Jaciel Stephen Service: (none) Author Type: Nurse Practitioner Type: Progress Notes Filed: 11/17/2018 12:36 PM Note Text: Reason for Consultation: DM Type 2 Referring Physician: SELF HISTORY OF PRESENT ILLNESS; Mr. Baez is a 68 year old male presenting as a new patient to me regarding DM Type 2. He was initially diagnosed with diabetes in May 2018 . He does have a family history of diabetes mellitus in his Mother. The patient has no known microvascular complications of diabetes. Champ reports the following diabetic macrovascular complications: PVD (stents leg) and TIA. He is currently on oral agents. Pt reports a recent A1C of 7.1 (2 wks ago) Was evaluated for bladder cancer but found to not be cancer. Attending DM education in [place] next week. He plans to have an eye exam soon. His current diabetes regimen is: Metformin 500mg daily in the AM. Regarding symptoms of hyperglycemia, he is is not experiencing any symptoms such as polyuria, polydipsia, nocturia or rapid weight loss or blurry vision. Dietary History is as follows: Breakfast: eggs, esquivel, rye toast, coffee Lunch: Roast beef and noodles Dinner: Spaghetti squash, steak, salad Exercise: walking --started 2 wks ago. Champ is checking his blood glucose 1 times daily. He did bring a logbook today for review: ? FBS 109, 113, 118, 67, 120, 55, 135, 114 ? After breakfast 126 Hypoglycemia frequency: occasionally --50-60 range Hypoglycemia awareness: Yes Overall, the patient has no acute complaints at this time. Hypothyroidism: Hx of Graves disease, s/p DYE. 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 - Knee cartilage, torn, right - Lumbago 07/25/2007 - Morbid obesity ([facility]) 08/15/2014 - RUTHY (obstructive sleep apnea), intolerant of CPAP 12/30/2008 Intolerant of CPAP - Pure hypercholesterolemia - PVD (peripheral vascular disease) ([facility]) 06/03/2011 - Snoring - Sprain of neck - Tobacco use disorder 12/30/2008 - 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 - ARTERY X-RAYS, HEAD AND NECK 01/1999 Carotid angiogram - CATARACT SURGERY, COMPLEX mid late bilateral - COLONOSCOP W/ OR W/O BRSH SPEC 11/14/14 Colonoscopy - COLONOSCOPY W/BX 11/14/2017 - EGD 06/29/2018 - EGD W/O OR W/BRUSH/WASH 07/14/2012 EGD - KNEE ARTHROSCOP MENISCUS REPAIR MED/LAT 04/27/2017 - LEFT HEART CATH,PERCUTANEOUS Cardiac cath, L heart - PAST SURGICAL HISTORY OF 1951 evacuation of hematoma, - PAST SURGICAL HISTORY OF 10/03 stents in both legs FAMILY HISTORY Problem Relation Age of Onset - Cancer Mother liver cancer, dec. age 66 - Alzheimer's Disease Mother - Diabetes Mother - Cancer Father lung cancer, dec. age 63 - Coronary Artery Disease Father - Genitourinary () Father nephrectomy posttrauma Social History Marital status: Spouse name: Years of education: 12 Number of children: 02 Occupational History Occupation Employer Comment retired Social History Main Topics Smoking status: Former Smoker Packs/day: 0.50 Years: 25.00 Types: Cigarettes Quit date: 02/12/2013 Smokeless tobacco: Never Used Alcohol use: Yes Comment: occasional 1 beer Drug use: No Current Outpatient Prescriptions: Blood-Glucose Meter (FREESTYLE LITE METER) monitoring kit 1 Each as needed. Disp: Rfl: pantoprazole DR (PROTONIX) 40 mg tablet Take 40 mg by mouth once daily. Disp: Rfl: levothyroxine (SYNTHROID) 137 mcg tablet TAKE 1 TAB BY MOUTH ONCE DAILY TUESDAY THRU TUESDAY THEN TAKE 1 AND 1/2 TAB ON SATURDAYS Disp: 90 tablet Rfl: 3 lisinopril (ZESTRIL, PRINIVIL) 10 mg tablet ON HOLD WHILE TRYING [place] INSTEAD TO SEE IF COUGH IS FROM THIS MED Disp: Rfl: atorvastatin (LIPITOR) 40 mg tablet Take 1 tablet by mouth once daily. Disp: 90 tablet Rfl: 3 carvedilol (COREG) 12.5 mg tablet Take 1 tablet by mouth twice daily with meals. Disp: 180 tablet Rfl: 3 clopidogrel (PLAVIX) 75 mg tablet Take 1 tablet by mouth once daily. Disp: 90 tablet Rfl: 3 spironolactone (ALDACTONE) 25 mg tablet Take 1 tablet by mouth once daily. Disp: 90 tablet Rfl: 3 tamsulosin ER (FLOMAX) 0.4 mg cap TAKE 1 CAPSULE BY MOUTH EVERY EVENING. Disp: 90 capsule Rfl: 3 hydroCHLOROthiazide (HYDRODIURIL, ESIDRIX) 12.5 mg tablet Take 1 tablet by mouth once daily. Disp: 90 tablet Rfl: 3 ferrous sulfate 325 mg (65 mg iron) tablet Take 325 mg by mouth twice daily. Disp: Rfl: iv contrast (will be provided with radiology test) CT Urogram WO/W Inject, intravenously, once for 1 dose.No IV access, insert saline lock prior to the beginning of sedation, infusion, injection of imaging exam. Discontinue saline lock post exam. If Pt. has a central line or IVAD, may access for administration according to line specific nursing protocol. Once exam is complete flush line and de-access according to line specific nursing protocol in the CT contrast administration guidelines link. (Patient not taking: Reported on 06/06/2018 ) Disp: 1 Each Rfl: 0 aspirin(ECOTRIN LOW STRENGTH 81 MG TAB) Take one(1) tablet daily. Disp: Rfl: 0 No current facility-administered medications for this visit. Allergies As of Date: 11/17/2018 Allergen Noted Reaction LOSARTAN 08/11/2018 Other: See Comments PENICILLINS 06/09/2004 TETRACYCLINE 11/17/2018 GI Upset Fully Assessed 11/17/2018 REVIEW OF SYSTEMS: General: no fever, chills or acute changes in weight in the last 6 months Skin: no rashes, pruritis or dry skin Eyes: no blurred or double vision or eye pain Cardiac: denies chest pain, heart palpitations or orthopnea Pulmonary: denies wheezing, productive cough or exertional dyspnea GI: denies nausea, vomiting, diarrhea or constipation Neuro: denies numbnes/tingling in hands or feet and denies seizures Musc: denies history of upper or lower extremity weakness Endocrine: see HPI Hematology: Bruising PHYSICAL EXAM: BP 119/70 (BP Site: Left Arm, BP Position: Sitting, BP Cuff Size: Large Adult) Pulse 77 Ht 174.8 cm (5' 8.82) Wt 114 kg (251 lb 6.4 oz) SpO2 94% BMI 37.32 kg/m2 Physical Exam Constitutional: He is oriented to person, place, and time and well-developed, well-nourished, and in no distress. No distress. Obese HENT: Head: Normocephalic and atraumatic. Eyes: Right eye exhibits no discharge. Left eye exhibits no discharge. exopthalmos R > L Neck: No thyromegaly present. Cardiovascular: Normal rate and regular rhythm. Pulmonary/Chest: Effort normal and breath sounds normal. Musculoskeletal: He exhibits no edema. Neurological: He is alert and oriented to person, place, and time. Skin: Skin is warm and dry. He is not diaphoretic. Psychiatric: Mood, memory, affect and judgment normal. Feet:Shoes and socks removed, sensitive to 10 gm monofilament, calluses noted bilaterally and nails notable for Deformed, Hypertrophic or Yellowish DATA: Creatinine Date Value Ref Range Status 06/03/2018 1.00 0.73 - 1.22 mg/dL Final Hemoglobin A1C (%) Date Value 06/03/2018 6.6 ) No components found for: URINEALBUMIN Cholesterol, Total (mg/dL) Date Value 06/03/2018 107 HDL Cholesterol (mg/dL) Date Value 06/03/2018 38 LDL Cholesterol (mg/dL) Date Value 06/03/2018 49 Triglyceride (mg/dL) Date Value 06/03/2018 100 IMPRESSION: Mr. Baez is a 68 year old male here for evaluation of DM Type 2 complicated by hypertension, hyperlipidemia, cerebrovascular disease (CHF, cardiomyopathy), PVD, carotid occlusion. and TIA/CVA, obesity. RECOMMENDATIONS: (E11.65) Diabetes mellitus type 2, uncontrolled, without complications (HCC) (primary encounter diagnosis) Comment: Glycemic control is close to goal. He had a couple of sugars --50-60 range. He has only been on metformin 1 tab daily. For now, hold the metformin. Increase lifestyle efforts and attend DM education. His Blood sugars in office was 90 with no metformin and no food yet today. Plan: Stop metformin for now. Monitor sugars once daily at variable times of day. Send them to me in a week. Notify me if they are consistently over 150. Increase exercise. Aim for 1Lb weight loss per day. Follow up in 3 months with labs prior. When you see your eye doctor and construction crew member have a copy of the reports sent to us if they are outside of the [facility]. 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 Plan: TFT with next labs (I10) Essential hypertension, benign Comment: BP stable Plan: managed per PCp (E78.00) Pure hypercholesterolemia Comment: taking atorvastatin Plan: Managed per PCP (I73.9) PVD (peripheral vascular disease) ([facility]) Comment/Plan: stents in leg; per vascular (E66.01, Z68.37) Class 2 severe obesity due to excess calories with serious comorbidity and body mass index (BMI) of 37.0 to 37.9 in adult ([facility]) Comment: Body mass index is 37.32 kg/m?. Plan: Encouraged increase dietary and exercise efforts as able Jaciel Stephen APRN, [facility] Office [facility]/[place] [address] Fax: CNOV Observed: 11/17/2018 Status: COMPLETED Source: [place] 10:45 AM [facility] REPOSITORY Office Visit (JASMED) CHAMP BAEZ ([id number]) 1950 M [facility] Date Time Provider Department 11/17/18 10:45 AM JACIEL STEPHEN) OLIVIA During your visit today, we recorded the following information about you: Pulse Blood pressure Weight Height 77/minute 119/70 114 kg 1.748 m Jaciel Stephen APRN.PIE BAKER 11/17/2018 12:36 PM Signed Reason for Consultation: DM Type 2 Referring Physician: SELF HISTORY OF PRESENT ILLNESS; Mr. Baez is a 68 year old male presenting as a new patient to me regarding DM Type 2. He was initially diagnosed with diabetes in May 2018 . He does have a family history of diabetes mellitus in his Mother. The patient has no known microvascular complications of diabetes. Champ reports the following diabetic macrovascular complications: PVD (stents leg) and TIA. He is currently on oral agents. Pt reports a recent A1C of 7.1 (2 wks ago) Was evaluated for bladder cancer but found to not be cancer. Attending DM education in [place] next week. He plans to have an eye exam soon. His current diabetes regimen is: Metformin 500mg daily in the AM. Regarding symptoms of hyperglycemia, he is is not experiencing any symptoms such as polyuria, polydipsia, nocturia or rapid weight loss or blurry vision. Dietary History is as follows: Breakfast: eggs, esquivel, rye toast, coffee Lunch: Roast beef and noodles Dinner: Spaghetti squash, steak, salad Exercise: walking --started 2 wks ago. Champ is checking his blood glucose 1 times daily. He did bring a logbook today for review: ? FBS 109, 113, 118, 67, 120, 55, 135, 114 ? After breakfast 126 Hypoglycemia frequency: occasionally --50-60 range Hypoglycemia awareness: Yes Overall, the patient has no acute complaints at this time. Hypothyroidism: Hx of Graves disease, s/p DYE. Taking levothyroxine 137 mcg daily except 1 1/2 on Tuesday PAST MEDICAL HISTORY Diagnosis Date - Benign neoplasm of colon Tubular adenoma 2014 colonoscopy - Brain TIA 06/02/2011 - CAD (coronary artery disease), [place] coronary artery 06/03/2011 - Cardiomyopathy, dilated, nonischemic (HCC) 07/07/2011 - Congestive heart failure (HCC) 06/03/2011 - Diabetes (HCC) - Dissection of carotid artery (HCC) 06/10/2005 - Knee cartilage, torn, right - Lumbago 07/25/2007 - Morbid obesity (HCC) 08/15/2014 - RUTHY (obstructive sleep apnea), intolerant of CPAP 12/30/2008 Intolerant of CPAP - Pure hypercholesterolemia - PVD (peripheral vascular disease) (HCC) 06/03/2011 - Snoring - Sprain of neck - Tobacco use disorder 12/30/2008 - 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 - ARTERY X-RAYS, HEAD AND NECK 01/1999 Carotid angiogram - CATARACT SURGERY, COMPLEX mid late bilateral - COLONOSCOP W/ OR W/O BRSH SPEC 11/14/14 Colonoscopy - COLONOSCOPY W/BX 11/14/2017 - EGD 06/29/2018 - EGD W/O OR W/BRUSH/WASH 07/14/2012 EGD - KNEE ARTHROSCOP MENISCUS REPAIR MED/LAT 04/27/2017 - LEFT HEART CATH,PERCUTANEOUS Cardiac cath, L heart - PAST SURGICAL HISTORY OF 1951 evacuation of hematoma, - PAST SURGICAL HISTORY OF 10/03 stents in both legs FAMILY HISTORY Problem Relation Age of Onset - Cancer Mother liver cancer, dec. age 66 - Alzheimer's Disease Mother - Diabetes Mother - Cancer Father lung cancer, dec. age 63 - Coronary Artery Disease Father - Genitourinary () Father nephrectomy posttrauma Social History Marital status: Spouse name: Years of education: 12 Number of children: 02 Occupational History Occupation Employer Comment retired Social History Main Topics Smoking status: Former Smoker Packs/day: 0.50 Years: 25.00 Types: Cigarettes Quit date: 02/12/2013 Smokeless tobacco: Never Used Alcohol use: Yes Comment: occasional 1 beer Drug use: No Current Outpatient Prescriptions: Blood-Glucose Meter (FREESTYLE LITE METER) monitoring kit 1 Each as needed. Disp: Rfl: pantoprazole DR (PROTONIX) 40 mg tablet Take 40 mg by mouth once daily. Disp: Rfl: levothyroxine (SYNTHROID) 137 mcg tablet TAKE 1 TAB BY MOUTH ONCE DAILY TUESDAY THRU TUESDAY THEN TAKE 1 AND 1/2 TAB ON SATURDAYS Disp: 90 tablet Rfl: 3 lisinopril (ZESTRIL, PRINIVIL) 10 mg tablet ON HOLD WHILE TRYING [place] INSTEAD TO SEE IF COUGH IS FROM THIS MED Disp: Rfl: atorvastatin (LIPITOR) 40 mg tablet Take 1 tablet by mouth once daily. Disp: 90 tablet Rfl: 3 carvedilol (COREG) 12.5 mg tablet Take 1 tablet by mouth twice daily with meals. Disp: 180 tablet Rfl: 3 clopidogrel (PLAVIX) 75 mg tablet Take 1 tablet by mouth once daily. Disp: 90 tablet Rfl: 3 spironolactone (ALDACTONE) 25 mg tablet Take 1 tablet by mouth once daily. Disp: 90 tablet Rfl: 3 tamsulosin ER (FLOMAX) 0.4 mg cap TAKE 1 CAPSULE BY MOUTH EVERY EVENING. Disp: 90 capsule Rfl: 3 hydroCHLOROthiazide (HYDRODIURIL, ESIDRIX) 12.5 mg tablet Take 1 tablet by mouth once daily. Disp: 90 tablet Rfl: 3 ferrous sulfate 325 mg (65 mg iron) tablet Take 325 mg by mouth twice daily. Disp: Rfl: iv contrast (will be provided with radiology test) CT Urogram WO/W Inject, intravenously, once for 1 dose.No IV access, insert saline lock prior to the beginning of sedation, infusion, injection of imaging exam. Discontinue saline lock post exam. If Pt. has a central line or IVAD, may access for administration according to line specific nursing protocol. Once exam is complete flush line and de-access according to line specific nursing protocol in the CT contrast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 Healthcare maintenance Z00.00 08/10/18 1702 <Electronically signed by Suki Brewer MD> Date Suki Brewer MD Cosigner Signature: Date (if applicable) CC: ECHOCARDIOGRAM COMPLETE Observed: 08/09/2018 Status: F Source: DOBBS F[place]Y 6:38 PM [facility] REPOSITORY [facility] Cardiovascular Services [address] [place] [id number] Echo Complete W/ Contrast 08/09/18 1101 MR#: [id number] Acct: [id number] Name: CHAMP BAZE Rep #: [id number] : 1950 67 From: Oseas Wade MD Attending Dr: Oseas Wade MD Status: REG CLI Ordering Dr: Oseas Wade MD Date: 08/09/18 Location: [facility] Sex: M C Admitted: Reason For Study: CHF Procedure This was a 2D Doppler, Color Flow transthoracic echocardiogram. The study was technically difficult. Contrast injection was performed. Exam performed in department. Left Ventricle Normal LV size. Moderate segmental systolic dysfunction (see wall motion). The estimated ejection fraction is 35 %. Diastolic function is indeterminate. Anterio- Basal: Hypokinetic. Infero-Basal: Hypokinetic. Basal inferoseptal: Hypokinetic. Basal anteroseptal: Hypokinetic. Mid-Anterior : Hypokinetic. Mid-Lateral : Hypokinetic. Mid-Posterior: Hypokinetic. Mid-Inferior: Hypokinetic. Mid- inferoseptal : Akinetic. Mid-anteroseptal : Dyskinetic. Anterior [place] : Akinetic. Inferior [place] : Hypokinetic. Lateral [place] : Hypokinetic. Septal [place] : Akinetic. Right Ventricle Normal RV size. Normal systolic function. Atria Normal left atrium. Normal right atrium. No doppler evidence for ASD. Mitral Valve There is mild mitral annular calcification. Mild focal mitral valve calcification of the anterior leaflet. Trivial mitral valve insufficiency. Tricuspid Valve Normal tricuspid valve. Trivial tricuspid valve insufficiency. Right ventricular systolic pressure estimated to be 28 mmHg. Aortic Valve Trisinus/trileaflet aortic valve. Mild focal aortic valve thickening. Pulmonic Valve The pulmonic valve is not well visualized. Trivial pulmonic valve insufficiency. Great Vessels Normal sized aortic root. Pericardium/Pleural No pericardial effusion. Medication 22 gauge I.V. with prn adaptor inserted into right arm. Diluted definity 4ml given slow IV push to enhance endocardial definition. MMode/2D Measurements AND Calculations LVIDd: 4.4 cm IVSd: 1.2 cm Ao root diam: 3.3 cm LVIDs: 3.4 cm LVPWd: 1.3 cm LA dimension: 4.0 cm RVDd: 3.8 cm FS: 22.5 % LAV(MOD-bp): 38.7 ml LVAd ap4: 40.1 cm2 SV(MOD-sp4): 82.6 ml LAV(MOD-bp) Indexed: 17.2 ml/m2 EDV(MOD-sp4): 151.5 ml LAV(MOD-sp2): 42.5 ml EDV(sp4-el): 158.0 ml LAV(MOD-sp4): 33.9 ml LVAs ap4: 25.3 cm2 ESV(MOD-sp4): 68.9 ml ESV(sp4-el): 70.6 ml EF(MOD-sp4): 54.5 % EF(sp4-el): 55.3 % SV(sp4-el): 87.4 ml LA A4 area: 14.1 cm2 RA A4 area: 16.0 cm2 Doppler Measurements AND Calculations MV E max toan: 65.5 cm/sec Lat Peak E' Toan: 7.3 cm/sec Med Peak E' Toan: 5.3 cm/sec MV A max toan: 105.6 cm/sec E/E' lat: 8.9 E/E' med: 12.4 MV E/A: 0.62 Ao V2 max: 116.0 cm/sec LV V1 max: 83.3 cm/sec PA V2 max: 83.1 cm/sec Ao max P.4 mmHg LV V1 max P.8 mmHg TR max toan: 247.9 cm/sec TR max P.6 mmHg Interpretation Summary The study was technically difficult. Contrast injection was performed. Moderate segmental systolic dysfunction (see wall motion). The estimated ejection fraction is 35 %. There is mild mitral annular calcification. Mild focal mitral valve calcification of the anterior leaflet. Trivial mitral valve insufficiency. Trivial tricuspid valve insufficiency. Mild focal aortic valve thickening. Trivial pulmonic valve insufficiency. Right ventricular systolic pressure estimated to be 28 mmHg. Diastolic function is indeterminate. Ordering Physician: Oseas Wade Referring Physician: IESHA MUNOZ Performed By: Soco Berg, RDCS 08/09/181837 Date Oseas Wade MD CC: Suki Brewer MD; Oseas Wade MD Date Dictated: 08/09/18 1101 Date Transcribed: 08/09/181837 Chief Customer Officer: Signed CBC W/DIFF, AUTOMATED Collected: 08/04/2018 Status: F Source: [place] 7:54 AM [facility] REPOSITORY TYPE CODE TESTS RESULT OUT OF RANGE REFERENCE UNITS LAB L100.1000 4.4-11.0 K/mm3 Normal WBC 7.4 LAB L100.1200 4.6-6.2 M/mm3 Low RBC 4.40 LAB L100.1300 13.0-16.5 g/dl Normal HGB 13.0 LAB L100.1400 40-54 % Normal HCT 41.0 LAB L100.1500 80-94 fL Normal MCV 93.2 LAB L100.1600 27.0-32.0 pg Normal MCH 29.5 LAB L100.1700 32-36 g/gl Low MCHC 31.7 LAB L100.1810 11.6-14.6 % Normal RDW CV 14.2 LAB L100.1820 35.1-43.9 fl High RDW SD 48.1 LAB L100.1900 150-450 K/mm3 Normal PLT 239 LAB L100.2000 6.2-12.0 fl Normal MPV 10.5 LAB L100.2100 47-70 % Normal NEUT% 62.5 LAB L100.2200 19-41 % Normal LY% 23.0 LAB L100.2300 0-10 % Normal MONO% 8.5 LAB L100.2400 0-5 % Normal EO% 4.6 LAB L100.2500 0-1 % Normal BASO% 0.9 LAB L100.2550 0.0-0.9 % Normal IM GRAN % 0.500 Result Comment: IG% - Immature Granulocytes (promyelocytes, myelocytes and metamyelocytes) > 1% indicates that a LEFT SHIFT is Present. LAB L100.2620 2.0-7.7 X10 3/uL Normal Absolute Neut 4.6 LAB L100.2720 0.83-4.51 X10 3/ul Normal Absolute Lymph 1.70 Performed By: #### L100.0100 #### [facility] [address] [place], [place], [address] CARDIOLOGY VISIT Observed: 08/03/2018 Status: F Source: [place]BS F[place]Y REPORT 6:05 PM [facility] REPOSITORY [facility] [address] [place] [address] OFFICE VISIT Date of Service: 08/03/18 MR#: [id number] Acct: [id number] Name: CHAMP BAEZ Rep #: [id number] : 1950 Provider: Oseas Wade MD Age/Sex: 67/M Location: [facility] Status: Signed HPI HPI Details: CHAMP BAEZ, is a 67 M who presents to the office today for for outpatient cardiovascular consultation based upon concerns of an underlying cardiomyopathy and pre-endoscopy evaluation. He has been previously diagnosed with what is believed to be a non-CAD related cardiomyopathy. This was based upon remote transthoracic echocardiograms as well as a note stating he underwent evaluation at the [facility] Main campus with right and left heart cardiac catheterization which reportedly demonstrated no obstructive disease and no volume overload and was recommended for continued medical management with beta blockers, OLIVIA inhibitors, statins, and aspirin therapy. This is based on information obtained from 2010. To the best of his knowledge she has not undergone additional cardiovascular evaluation since that time with respect to primary cardiac evaluation. He states he has had peripheral vascular evaluation which is led to peripheral vascular procedure/intervention. At the present time he denies any ongoing chest discomfort suspicious for classic angina pectoris. He denies any evidence of orthopnea or PND or ongoing peripheral pitting edema. He denies any near syncope or syncope or ongoing palpitations. He had an ECG in the office today. He is noted to have an underlying sinus rhythm with a left bundle branch block pattern. Based upon his outpatient medical records available for review it appears that he had a transthoracic echocardiogram performed at [facility] on 06/01/2011. At that time his left ventricle was dilated, severely segmentally dysfunctional, with an LVEF of 20% with mild concentric LVH, borderline enlarged left atrium, mild mitral annular calcification, mild diffuse mitral valve thickening, mild papillary muscle dysfunction, trivial MR/TR, a negative agitated saline contrast study, no obvious intercardiac mass lesion or thrombus identified, and recommendations for further evaluation, based upon a history of TIA, with a JES if clinically indicated. It appears that he had a another transthoracic echocardiogram performed at the [facility] on 12/01/2011. Based upon their report his left ventricle was dilated, dysfunctional, with an LVEF of 28% with no significant valvular abnormalities reported and an estimated RV systolic pressure of 29 mmHg. The cardiac catheterization report is unavailable for review. There is a comment based upon his [facility] medical records that he had carotid artery disease with a carotid artery duplex study being performed on 06/10/2017. Based upon that report it stated that he had right internal carotid artery disease of 20-39% stenosis in the left internal carotid artery was occluded. There are also comments made in his [facility] medical records that he has peripheral vascular disease and has undergone a right common iliac artery percutaneous intervention/stenting procedure. He states there is now concerned about potentially some form of gastrointestinal bleeding. He states he is being evaluated for endoscopy. He was requested to have outpatient cardiovascular evaluation including transthoracic echocardiogram prior to this procedure Intake Vital Signs08/03/18 Height 5 ft 11 in 08/03/18 Weight: 247 lb 08/03/18 Body Mass Index (BMI) 34.4 08/03/18 Blood Pressure 110/58 L Intake Visit Reasons: Dr Ma ref'd for cardiomyopathy Allergies Penicillins Allergy (Verified 08/03/18 13:11) Hives tetracycline Allergy (Verified 08/03/18 13:11) Hives losartan Adverse Reaction (Severe, Verified 08/03/18 13:27) lightheadedness Medications Atorvastatin Calcium 40 mg PO QHS 06/29/18 [History Confirmed 08/03/18] Carvedilol 12.5 mg PO BID 06/29/18 [History Confirmed 08/03/18] Hydrochlorothiazide 12.5 mg PO DAILY 06/29/18 [History Confirmed 08/03/18] Levothyroxine [Synthroid] 137 mcg PO DAILY 06/29/18 [History Confirmed 08/03/18] Levothyroxine [Synthroid] 205.5 mcg PO QWEEK 06/29/18 [History Confirmed 08/03/18] Lisinopril [Zestril] 10 mg PO DAILY 06/29/18 [History Confirmed 08/03/18] Spironolactone [Aldactone] 25 mg PO DAILY 06/29/18 [History Confirmed 08/03/18] Tamsulosin HCl [Flomax] 0.4 mg PO DAILY 06/29/18 [History Confirmed 08/03/18] clopidogrel 75 mg tablet 75 mg PO DAILY 07/11/18 [History Confirmed 08/03/18] ferrous sulfate 325 mg (65 mg iron) tablet 325 mg PO BID #180 tab 07/11/18 [Rx Confirmed 08/03/18] metformin ER 500 mg tablet,extended release 24 hr 500 mg PO QPM #30 tab 07/11/18 [Rx Confirmed 08/03/18] blood sugar diagnostic strips See Dose Instructions .ROUTE .MEDSUPPLY #50 ea 07/25/18 [Rx Confirmed 08/03/18] lancets 28 gauge See Dose Instructions .ROUTE .MEDSUPPLY #50 ea 07/25/18 [Rx Confirmed 08/03/18] blood-glucose meter kit See Dose Instructions .ROUTE .MEDSUPPLY #1 ea 07/28/18 [Rx Confirmed 08/03/18] pantoprazole 40 mg tablet,delayed release 40 mg PO DAILY tab 08/03/18 [History] [facility] Medical History 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) Type 2 diabetes mellitus (Chronic) RUTHY (obstructive sleep apnea) (Chronic) Lumbago (Chronic) PVD (peripheral vascular disease) (Chronic) BPH (benign prostatic hyperplasia) (Chronic) Arthritis (Chronic) Duodenal ulcer (Acute) GI bleed (Acute) Hypothyroidism (Chronic) HLD (hyperlipidemia) (Chronic) Gastroesophageal reflux disease (Chronic) Benign essential HTN (Chronic) History of TIA (transient ischemic attack) (Acute) History of carotid artery dissection (Acute) History of kidney stones (Acute) Peripheral arterial disease (Acute) Chronic systolic (congestive) heart failure (Chronic) Cardiomyopathy (Inactive) Surgical History S/P insertion of iliac artery stent (Chronic) Family History Father Cancer lung Myocardial infarction Mother Cancer liver Diabetes Social History Smoking Status: Former smoker how long ago did patient quit smokin alcohol intake: current alcohol intake frequency: a few times a month substance use type: does not use what type of physical activity do you participate in: none ROS Const Const: Negative for fatigue, weakness, weight gain, weight loss, frequent falls or excessive sweating Eyes Eyes: Negative for change in vision, blurry vision or transient loss of vision ENT ENT: Negative for dizziness or balance problems Cardio Chest Pain: No Palpitations: No Edema: None Muscle aches with walking: None Resp Respiratory: Negative for SOB with activity or SOB at rest GI GI: Negative vomiting or vomiting blood/hematemesis : Negative for hematuria Musc Musc: Negative for balance problems, muscle aches/ myalgia, muscle weakness or joint pain Skin Skin: Negative non-healing lesions or rash Neuro Neuro: Negative for weakness, blurry vision, dizziness, lightheadedness, frequent falls or orthostatic symptoms Mathew Hematologic/Lymphatic: Negative for easy bleeding Endo Endo: Negative for fatigue or excessive sweating Psych Psych: Negative for anxiety or depression Allergy Allergy/Immunology: Negative for hives, Negative for rash Cardiology Exam Const Appearance: cooperative, comfortable, no acute distress, well developed and well groomed Nutritional Appearance: overweight Orientation: alert, awake and oriented x3 Head Head: normal to inspection, normocephalic and atraumatic Ears: hearing grossly normal bilaterally Nose: external nose normal Face and Sinus: face symmetric Mouth: oral mucosae normal Teeth and gingiva: fair dentition Eyes Eyelids: eyelids normal Conjunctivae: conjunctivae normal Pupils: PERRL EOM: EOM intact bilaterally Neck Neck: normal visual inspection and full ROM Carotids: normal carotid upstroke Chest Chest inspection: normal inspection of the chest, symmetric chest movement and normal respiratory effort Auscultation: Bilateral: Clear to Auscultation Cardio Palpation: normal PMI Rate: regular rate Rhythm: regular rhythm Heart sounds: S1 normal, S2 normal and positive S4 Murmur: Grade 1/6, soft and mid systolic GI GI: normal to inspection, bowel sounds present and soft Neuro General: alert, awake and oriented x3 Skin Skin: no rashes or lesions noted Extremities Pulses: Normal: Right Radial Pulse, Left Radial Pulse, Diminished: Right Femoral Pulse, Left Femoral Pulse, Right Dorsalis Pedis Pulse, Left Dorsalis Pedis Pulse, Right Posterior Tibial Pulse, Left Posterior Tibial Pulse Lower Extremity Edema: None: Bilateral Psych Psychological: normal affect Assessment AND Plan 1. Nonischemic dilated cardiomyopathy I42.0 Plan At the present time he appears to be without acute symptoms. He will continue medical management. His medications have included his beta-blockers and OLIVIA inhibitors. He is also been on diuretic therapy with spironolactone/Aldactone He will proceed with further evaluation with a transthoracic echocardiogram to reassess his left ventricular wall motion and systolic function. This may help guide further cardiovascular evaluation and care. He was asked if he was ever considered in the past for primary prevention ICD therapy. He states he does not recall that discussion. Orders Orders: 2. Atherosclerotic heart disease of [place] coronary artery without angina pectoris I25.10 Plan He will need to continue risk factor evaluation and care. In the interim he is on medical management. It appears that he is on antiplatelet therapy with clopidogrel/Plavix. He states he is not on other therapy such as aspirin therapy based upon concerns of a possible gastrointestinal bleeding process. Orders Orders: 3. Peripheral vascular disease I73.9 Plan He does have a history of peripheral vascular disease. It is been summarized as noted above. He is on antiplatelet therapy for this. He will continue to follow with peripheral vascular surgery for this 4. Hyperlipidemia, unspecified hyperlipidemia type E78.5 Plan He does have a history of hyperlipidemia. He is on lipid- lowering therapy. He states he is following with his primary care physician for this 5. Benign essential HTN I10 Plan He does have a history of hypertension. His blood pressure appears to be well controlled at the present time. He will continue medical management 6. Pre-operative cardiovascular examination Z01.810 Plan With respect to preprocedure related evaluation he will continue medical therapy. He will have a follow-up transthoracic echocardiogram. Further comments can be made at that time. However if he continues with evidence of an underlying cardiomyopathy, without other acute symptoms, and being stable on medical management, he should be able to proceed with his endoscopy procedure with close monitoring of his cardiac rate, rhythm, and blood pressure. He would need avoidance of IV volume overload that would bring out CHF/pulmonary edema. Orders Orders: Plan Detail Other Orders Orders: Additional Comments The above was discussed with him. He was agreeable to this approach. Thank you for allowing me to participate in the care of your patient. Please don't hesitate to call if any issues arise. This note was generated using a voice recognition system and there may be incorrect words, spelling or punctuation that were not noted when reviewing the office note prior to saving. Follow Up 6 Months (PFM) Coding Level of Care Code Off vis,new,level 4 Diagnoses Nonischemic dilated cardiomyopathy I42.0 Atherosclerotic heart disease of [place] coronary artery without angina pectoris I25.10 Peripheral vascular disease I73.9 Hyperlipidemia, unspecified hyperlipidemia type E78.5 Hyperlipidemia type: unspecified Benign essential HTN I10 Pre-operative cardiovascular examination Z01.810 Coding Level of Care Code Off vis,new,level 4 Diagnoses Nonischemic dilated cardiomyopathy I42.0 Atherosclerotic heart disease of [place] coronary artery without angina pectoris I25.10 Peripheral vascular disease I73.9 Hyperlipidemia, unspecified hyperlipidemia type E78.5 Hyperlipidemia type: unspecified Benign essential HTN I10 Pre-operative cardiovascular examination Z01.810 08/03/18 1805 <Electronically signed by Oseas Wade MD> Date Oseas Wade MD Cosigner Signature: Date (if applicable) CC: Suki Brewer MD; Kaitlin Ma MD 12 LEAD EKG PERFORMED Observed: 08/03/2018 Status: F Source: [place] BY MANDI 1:05 PM [facility] REPOSITORY [facility] [address] [place] [address] 12 Lead EKG performed by MANDI 08/03/18 1304 MR#: [id number] Acct: [id number] Name: CHAMP BAEZ Rep #: [id number] : 1950 67 From: Oseas Wade MD Attending Dr: Oseas Wade MD Status: DEP AMB Ordering Dr: Oseas Wade MD Date: 08/03/18 [place] [facility] [place] M C Admitted: BMS/12 Lead EKG performed by [facility] ECG Report Interpretation Sinus Rhythm Left bundle branch block. ABNORMAL Electronically signed on 08/03/2018 at 19:04 by Oseas aWde [email or web address] Version [id number] 08/03/18 1905 Date Oseas Wade MD CC: Suki Brewer MD Date Dictated: 08/03/18 1304 Date Transcribed: 08/03/18 1304 Chief Customer Officer: PM Signed PROGRESS Observed: 07/17/2018 Status: COMPLETED Source: [place] 9:19 AM [facility] CAMP[facility] REPOSITORY O ID: [id number] Author: Mauricio Jesus Service: (none) Author Type: Physician Type: Progress Notes Filed: 07/17/2018 9:26 AM Note Text: CHIEF COMPLAINT: carotid ASO and aortioiliac ASO Patient is a 67 year old male here for a follow up evaluation of carotid ASO and aortioiliac ASO. Mr. Baez previously had R hip claudication - was treated with a R iliac stent about 5 years ago. No symptoms of claudication at this time. Since he last visit he was diagnosed with DMII and started on Metformin, also had an episode of coffee ground emesis and was found to have an ulcer. Stopped ASA, still on Plavix. He also has a known L internal carotid occlusion that has been followed for at least 10 years. SYMPTOMS: asymptomatic TESTS: WILY's, date 07/12/18, results: Right WILY=0.84, post exercise 0.45 Left WILY=1.03 Decreased on the right from 2017 Carotid Ultrasound, date 9/19/18, results: JIM PSV 91, Ratio: 1.0, <50% LICA occluded. Unchanged from previous exam HISTORIES: PAST MEDICAL HISTORY Diagnosis Date - Benign neoplasm of colon Tubular adenoma 2014 colonoscopy - Brain TIA 06/02/2011 - CAD (coronary artery disease), [place] coronary artery 06/03/2011 - Cardiomyopathy, dilated, nonischemic (HCC) 07/07/2011 - Congestive heart failure (HCC) 06/03/2011 - Diabetes (HCC) - Dissection of carotid artery (HCC) 06/10/2005 - Knee cartilage, torn, right - Lumbago 07/25/2007 - Morbid obesity ([facility]) 08/15/2014 - RUTHY (obstructive sleep apnea), intolerant of CPAP 12/30/2008 Intolerant of CPAP - Pure hypercholesterolemia - PVD (peripheral vascular disease) ([facility]) 06/03/2011 - Snoring - Sprain of neck - Tobacco use disorder 12/30/2008 - 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 - ARTERY X-RAYS, HEAD AND NECK 01/1999 Carotid angiogram - CATARACT SURGERY, COMPLEX mid late bilateral - COLONOSCOP W/ OR W/O BRSH SPEC 11/14/14 Colonoscopy - COLONOSCOPY W/BX 11/14/2017 - EGD W/O OR W/BRUSH/WASH 07/14/2012 EGD - KNEE ARTHROSCOP MENISCUS REPAIR MED/LAT 04/27/2017 - LEFT HEART CATH,PERCUTANEOUS Cardiac cath, L heart - PAST SURGICAL HISTORY OF 195 evacuation of hematoma, - PAST SURGICAL HISTORY OF 10/03 stents in both legs Social History Marital status: Spouse name: Years of education: 12 Number of children: 02 Occupational History Occupation Employer Comment retired Social History Main Topics Smoking status: Former Smoker Packs/day: 0.50 Years: 25.00 Types: Cigarettes Quit date: 02/12/2013 Smokeless tobacco: Never Used Alcohol use: Yes Comment: occasional 1 beer Drug use: No FAMILY HISTORY Problem Relation Age of Onset - Cancer Mother liver cancer, dec. age 66 - Alzheimer's Disease Mother - Diabetes Mother - Cancer Father lung cancer, dec. age 63 - Coronary Artery Disease Father - Genitourinary () Father nephrectomy posttrauma MEDICATIONS: Current Outpatient Prescriptions: metFORMIN (GLUCOPHAGE) 500 mg tablet Take 500 mg by mouth daily with breakfast. ferrous sulfate 325 mg (65 mg iron) tablet Take 325 mg by mouth twice daily. levothyroxine (SYNTHROID) 137 mcg tablet TAKE 1 TAB BY MOUTH ONCE DAILY TUESDAY THRU TUESDAY THEN TAKE 1 AND 1/2 TAB ON SATURDAYS lisinopril (ZESTRIL, PRINIVIL) 10 mg tablet ON HOLD WHILE TRYING LOSARTAN INSTEAD TO SEE IF COUGH IS FROM THIS MED atorvastatin (LIPITOR) 40 mg tablet Take 1 tablet by mouth once daily. carvedilol (COREG) 12.5 mg tablet Take 1 tablet by mouth twice daily with meals. clopidogrel (PLAVIX) 75 mg tablet Take 1 tablet by mouth once daily. spironolactone (ALDACTONE) 25 mg tablet Take 1 tablet by mouth once daily. tamsulosin ER (FLOMAX) 0.4 mg cap TAKE 1 CAPSULE BY MOUTH EVERY EVENING. hydroCHLOROthiazide (HYDRODIURIL, ESIDRIX) 12.5 mg tablet Take 1 tablet by mouth once daily. iv contrast (will be provided with radiology test) CT Urogram WO/W Inject, intravenously, once for 1 dose.No IV access, insert saline lock prior to the beginning of sedation, infusion, injection of imaging exam. Discontinue saline lock post exam. If Pt. has a central line or IVAD, may access for administration according to line specific nursing protocol. Once exam is complete flush line and de-access according to line specific nursing protocol in the CT contrast administration guidelines link. (Patient not taking: Reported on 06/06/2018 ) aspirin(ECOTRIN LOW STRENGTH 81 MG TAB) Take one(1) tablet daily. No current facility-administered medications for this visit. ALLERGIES Allergen Reactions - Penicillins hives - Tetracycyline [Othe* Other: See Comments stomach ache REVIEW OF SYSTEMS: All other ROS: negative PHYSICAL EXAM: General appearance: Normal, healthy, well nourished, alert and cooperative individual, in no acute distress. Overweight. Skin: No lesions, rashes or ulcerations; normal color and turgor. Neck: no bruits Pulmonary: Lungs clear to auscultation bilaterally. No wheezing or rhonchi. Coronary: regular rate , regular rhythm and no systolic ejection murmurs Lower Extremities: Feet and toes warm Negative edema Negative Ulcers Neuro: Awake, alert, and oriented., Gait normal. Sensation grossly intact., CN II-XII grossly intact. PULSES: Signals in B PT/DP IMPRESSION: Mr. Baez has a known asymptomatic L ICA occlusion and R iliac stenosis, treated with stenting. He is doing well as is currently asymptomatic. He quit smoking about 7 Years ago, is on Plavix and a statin regimen so he is currently also on maximum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 14 - 40 U/L 20 Glucose 74 - 99 mg/dL 116 (H) 107 (H) 108 (H) BUN 9 - 24 mg/dL 12 11 18 Creatinine 0.73 - 1.22 mg/dL 0.99 1.04 0.96 Sodium 136 - 144 mmol/L 138 139 139 Potassium 3.7 - 5.1 mmol/L 4.3 4.6 4.4 Chloride 97 - 105 mmol/L 102 100 101 CO2 22 - 30 mmol/L 26 22 23 Anion Gap 9 - 18 mmol/L 10 17 15 ALT 10 - 54 U/L 18 eGFR- >60 >60 >60 eGFR-All Other Races . >60 >60 >60 WBC 3.70 - 11.00 k/uL 7.68 RBC 4.20 - 6.00 m/uL 4.95 Hemoglobin 13.0 - 17.0 g/dL 14.6 Hematocrit 39.0 - 51.0 % 46.9 MCV 80.0 - 100.0 fL 94.7 MCH 26.0 - 34.0 pG 29.5 MCHC 30.5 - 36.0 g/dL 31.1 RDW-CV 11.5 - 15.0 % 13.3 Platelet Count 150 - 400 k/uL 252 MPV 9.0 - 12.7 fL 10.8 Absolute nRBC 0.00 k/uL 0.00 Triglyceride <150 mg/dL 145 115 Cholesterol, Total <200 mg/dL 122 116 HDL Cholesterol >39 mg/dL 46 47 VLDL Cholesterol <30 mg/dL 29 23 LDL Cholesterol <100 mg/dL 47 (L) 46 Fasting Time hrs 14 12 TC:HDL Ratio <5.10 2.65 2.47 LDL:HDL Ratio <2.54 1.02 0.98 Non HDL Cholesterol <130 mg/dL 76 (L) 69 Creatinine, Ur Random (UCRR) 20 - 300 mg/dL 80.8 Albumin, Urine Random 0.0 - 23.0 mg/L <12.0 Albumin/Creat Ratio 0 - 30 mg/g <15 Hemoglobin A1C 4.3 - 5.6 % 6.6 (H) 6.5 (H) 6.6 (H) Estimated Average Glucose mg/dL 143 140 143 PSA 0.00 - 2.59 ng/mL 0.61 TSH 0.400 - 5.500 uU/mL 0.417 Free T4 0.9 - 1.7 ng/dL 1.5 ASSESSMENT AND PLAN: Encounter Diagnosis ICD-10-CM 1. Diabetes mellitus without complication (HCC) E11.9 HGB A1C BASIC METABOLIC PNL LIPID PANEL BASIC 2. Acquired hypothyroidism E03.9 TSH BLD 3. Essential hypertension, benign I10 BASIC METABOLIC PNL CBC 4. Laboratory test Z01.89 HEP C AB IA W/CONF SCRN Clinically euthyroid. TSH fine. Continue to adjust dose of replacement as indicated based on symptoms and labs. Above issues addressed with patient. Patient involved in shared decision making for management of her medical issues. History and medications reviewed. Epic updated as needed Refills taken care of and meds adjusted as indicated after reviewed history, exam and labs. Health Maintenance reviewed. Updated record and/or ordered tests as recorded. Encouraged on efforts at healthy diet and regular exercise and adequate sleep. The majority of the visit was spent counseling and/or coordinating care for the patient. Dgmh-ql-jizn time was at least 25 minutes. Halle Edmond MD COMP METABOLIC PANEL Collected: 11/26/2017 Status: F Source: [place] 7:49 AM [facility] [place] REPOSITORY TYPE CODE TESTS RESULT OUT OF REFERENCE UNITS RANGE LAB TP 6.3-8.0 g/dL Protein, Total 6.6 LAB ALB 3.9-4.9 g/dL Albumin 4.0 LAB CA 8.5-10.2 mg/dL Calcium, Total 8.9 LAB TBIL 0.2-1.3 mg/dL Bilirubin, Total 0.4 LAB ALKP 36-108 U/L Low Alkaline Phosphatase 35 LAB AST 14-40 U/L AST 20 LAB GLU 74-99 mg/dL Glucose High 108 Result Comment: The [place] Diabetes Association (ADA) provides guidance for cutoff values for fasting glucose and random glucose. The ADA defines fasting as no caloric intake for at least 8 hours. Fas ting plasma glucose results between 100 to 125 mg/dL indicate increased risk for diabetes (prediabetes). Fasting plasma glucose results greater than or equal to 126 mg/dL meet the criteria for diagnosis of diabetes. In the absence of unequivocal hyperglycemia, results should be confirmed by repeat testing. In a patient with classic symptoms of hyperglycemia or hyperglycemic crisis, random plasma glucose results greater than or equal to 200 mg/dL meet the criteria for diagnosis of diabetes. Reference: Standards of Medical Care in Diabetes 2016, [place] Diabetes Association. Diabetes Care. 2016.39(Suppl 1). LAB BUN 9-24 mg/dL BUN 18 LAB CRET 0.73-1.22 mg/dL Creatinine 0.96 LAB NA 136-144 mmol/L Sodium 139 LAB K 3.7-5.1 mmol/L Potassium 4.4 LAB CL 97-105 mmol/L Chloride 101 LAB CO2 22-30 mmol/L CO2 23 LAB AGAP 9-18 mmol/L Anion Gap 15 LAB ALT 10-54 U/L ALT 18 LAB GFRAA eGFR- Amer. >60 LAB GFRNAA . eGFR-All Other Races >60 Result Comment: eGFR (Estimated GFR) Units of measure: mL/min/1.73 meters squared eGFR is derived from the reexpressed MDRD Study equation using the following parameters: serum creatinine, age, gender and race. The creatinine assay has been calibrated to be traceable to IDMS. An eGFR <60 mL/min/1.73m2 for >3 months is consistent with chronic kidney disease. Refer to KDOQI guidelines for clinical interpretation. In patients with unstable renal function, e.g. those with acute kidney injury, the eGFR may not accurately reflect actual GFR. Performed By: #### CMP, LIPB, TSH, FT4, HBA1C #### [facility] [address] [place], [place] [address] LIPID PANEL, BASIC Collected: 11/26/2017 Status: F Source: [place] 7:49 AM [facility] REPOSITORY TYPE CODE TESTS RESULT OUT OF REFERENCE UNITS RANGE LAB CHOL <200 mg/dL Cholesterol 116 Result Comment: <200 mg/dL, Desirable 200-239 mg/dL, Borderline high >239 mg/dL, High LAB TRIGLY <150 mg/dL Triglyceride 115 Result Comment: <150 mg/dL, Normal 150-199 mg/dL, Borderline high 200-499 mg/dL, High >499 mg/dL, Very high LAB HDL >39 mg/dL HDL-Cholesterol 47 Result Comment: 40-59 mg/dL, Acceptable >59 mg/dL, High: Negative risk factor for coronary heart disease <40 mg/dL, Low: Positive risk factor for coronary heart disease LAB LDL <100 mg/dL LDL-Cholesterol 46 Result Comment: <100 mg/dL, Optimal 100-129 mg/dL, Near optimal/above optimal 130-159 mg/dL, Borderline high 160-189 mg/dL, High >189 mg/dL, Very high Secondary prevention optimal LDL Cholesterol levels are recommended to be < 70 mg/dL LAB NONHDL <130 mg/dL Non HDL Cholesterol 69 Result Comment: <130 mg/dL, Optimal 130-159 mg/dL, Near optimal/above optimal 160-189 mg/dL, Borderline high 190-219 mg/dL, High >219 mg/dL, Very high Secondary prevention optimal non HDL Cholesterol levels are recommended to be < 100 mg/dL LAB FT hrs Fasting Time 12 LAB VLDL <30 mg/dL VLDL Cholesterol 23 LAB TCHDL <5.10 TC:HDL Ratio 2.47 LAB LDLHDL <2.54 LDL:HDL Ratio 0.98 Result Comment: Reference: 1. National Cholesterol Education Program ATP III Guideline At-A-Glance Quick Desk Reference: National Heart, Lung, and Blood [place]. National Institutes of Health. 2001: NIH Publication No. 01-3305. 2. An International Atherosclerosis Society position paper: global recommendations for the management of dyslipidemia: executive summary, Atherosclerosis. 2014: 232(2):410-413. Performed By: #### CMP, LIPB, TSH, FT4, HBA1C #### [facility] [employer] [address] [place] [address] TSH Collected: 11/26/2017 Status: F Source: [place] 7:49 AM [facility] REPOSITORY TYPE CODE TESTS RESULT OUT OF RANGE REFERENCE UNITS LAB TSH 0.400-5.500 uU/mL TSH 0.417 Performed By: #### CMP, LIPB, TSH, FT4, HBA1C #### [facility] [employer] [address] [address] FREE T4 Collected: 11/26/2017 Status: F Source: [place] 7:49 AM [facility] REPOSITORY TYPE CODE TESTS RESULT OUT OF RANGE REFERENCE UNITS LAB FT4 0.9-1.7 ng/dL Free T4 1.5 Performed By: #### CMP, LIPB, TSH, FT4, HBA1C #### [facility] [employer] [address] [place], [place] [address] HEMOGLOBIN A1C Collected: 11/26/2017 Status: F Source: [place] 7:49 AM [facility] REPOSITORY TYPE CODE TESTS RESULT OUT OF REFERENCE UNITS RANGE LAB HGBA1C 4.3-5.6 % High Hemoglobin A1c 6.6 LAB HBA0 mg/dL Est. Average Glucose 143 Result Comment: eAG: (Estimated average glucose) is a calculated value from HgbA1c and is patient intake representative of the average blood glucose level in the last 2-3 month period. Performed By: #### CMP, LIPB, TSH, FT4, HBA1C #### [facility] [address] [place] [address] ALLERGIES ALLERGIES DATE TYPE / CODE NAME / CODE REACTION SEVERITY SOURCE 08/11/20 DRUG LOSARTAN OTHER: SEE [facility] 18 INGREDI/[id number] [facility] (SNOMED CT) [place] Repository 08/08/20 Drug Penicillins/F00 Hives Unknown [place] 18 Allergy/[id number] 7720951(RXNORM) [facility] (SNOM[facility] Hospital Repository 08/08/20 Drug tetracycline/F0 Hives Unknown [place] 18 Allergy/824152970 96970343(RXNORM Community (SNOMED CT) ) Hospital Repository 08/08/20 Drug losartan/V58983 lightheadedness SV [place] 18 Allergy/678837801 4991(RXNORM) [facility] (SNOMED CT) Hospital Repository 04/09/20 Miscellaneous OTHER OTHER: SEE [facility] 06 Allergy/617808674 Clinic Other (SNOMED CT) [place] Repository 06/09/20 Drug PENICILLINS [place] 04 Class/221502423(S Clinic Other NOMED CT) [place] Repository NG/507974367(SNOM PENICILLINS [facility] CT) [facility] Repository NG/986888664(SNOM OTHER [facility] CT) Health System Repository ENCOUNTERS ENCOUNTERS ADMIT/DISCHARGE ACCOUNT NUMBER ADMITTING ENCOUNTER LOCATION SOURCE CLASS 11/17/2018/11/17/19 [id number] Ambulatory [address] Main [place] Repository 11/09/2018 [id number] Ambulatory [facility] ding:LAB Repository 11/06/2018/11/06/19 [id number] Ambulatory BMSBuilding: [address] Repository 10/02/2018 [id number] Ambulatory [facility] ding:US Repository 09/28/2018 [id number] Ambulatory [facility] ding:LABSPEC Repository 08/11/2018/08/15/20 [id number] Ambulatory [address] Main [place] Repository 08/09/2018 [id number] Ambulatory BMSBuilding: [place] [facility] Repository 08/09/2018 [id number] Ambulatory [facility] ding:[facility]S Repository 08/08/2018/08/08/20 [id number] Ambulatory BMSBuilding: [place] [address] Repository 08/04/2018 [id number] Ambulatory [facility] ding:LAB Repository 08/03/2018/08/03/20 [id number] Ambulatory BMSBuilding: [place] 18 BMS.[facility] Repository 08/01/2018 [id number] Ambulatory BMSBuilding: [place] BMS.[facility] Repository 07/17/2018/07/17/20 [id number] Ambulatory [address] Other [place] Repository 07/17/2018/07/17/20 [id number] Ambulatory [address] MEDICAL Repository CENTERBuildi ng:AGVASACC 07/12/2018/07/12/20 [id number] Ambulatory [address] Other [place] Repository 07/12/2018/07/12/20 [id number] Ambulatory [address] Repository 07/12/2018/07/12/20 [id number] Ambulatory [address] MEDICAL Repository CENTERBuildi ng:AKVASLB 07/12/2018/07/12/20 [id number] Ambulatory [address] MEDICAL Repository CENTERBuildi ng:AKVASLB 07/11/2018/07/11/20 [id number] Ambulatory BMSBuilding: [place] [address] Repository 07/11/2018 [id number] Ambulatory [facility] MEDICAL Repository CENTERBuildi ng:AKVASLB 07/11/2018 [id number] Ambulatory [facility] MEDICAL Repository CENTERBuildi ng:AKVASLB 07/03/2018/07/03/20 [id number] Ambulatory [address] Main [place] Repository 06/29/2018/07/02/20 [id number] [place], Inpatient [place] 18 Wild F Encounter [facility] ding:PCURoom Repository : [id number]: 1 06/29/2018 [id number] [place], Ambulatory BMSBuilding: [place] Wild F BMS.[facility] Repository 06/29/2018 [id number] [place], Ambulatory BMSBuilding: [place] Wild F BMS.[facility] Repository 06/29/2018 [id number] [place], Ambulatory BMSBuilding: [place] Wild F BMS.[facility] Repository 06/29/2018 [id number] [place], Ambulatory BMSBuilding: [place] Wild F BMS.[facility] Repository 06/29/2018 [id number] Ambulatory [facility] MEDICAL Repository CENTERBuildi ng:AKVASLB 06/29/2018 [id number] Ambulatory [facility] MEDICAL Repository CENTERBuildi ng:AKVASLB 06/06/2018/06/22/20 [id number] Ambulatory [address] Repository 06/03/2018/06/03/20 [id number] Ambulatory [address] Repository 03/03/2018/03/03/20 [id number] Ambulatory [address] Repository 03/03/2018/03/11/20 [id number] Ambulatory [address] Repository 11/29/2017/12/15/19 [id number] Ambulatory [address] Repository 11/26/2017/11/26/19 [id number] Ambulatory [address] Repository PAYERS PAYERS ENCOUNTER GUARANTOR PAYER SUBSCRIBER SOURCE 11/09/2018 CHAMP García Primary CHAMP Muir [id number] [facility] PART A olic Number: [id number] [id number] Repository , [place] [address]Itw: Date:2018-11-09 () 11/09/2018 Secondary CHAMP Muir Insurance:[facility] KENDALLDOB: [facility] INS [facility] [id number] Hospital Number: Repository [id number] Date: [place], [place] [address]PT: [phone] 11/09/2018 Tertiary NOT GIVENUNK [place] Insurance:SELF PAY [facility] Hospital Number: Effective Repository Date:2018-11-09 2018 CHAMP J Primary CHAMP J [place] [id number] Insurance:MEDICARE KENDALLDOB: Community SEBE PART A olicy Number: [id number] [place] [id number] Repository , [place] [address]Isf: Date:2018-08-08 () 2018 Secondary CHAMP J [place] Insurance:[facility]: Community LIFE INS [facility] [id number] Hospital Number: Repository [id number] Date: [place], [place] [address]FU: [id number] 2018 Tertiary NOT GIVENUNK [place] Insurance:SELF PAY [facility] Number: Effective Repository Date:2018-10-27 10/02/2018 CHAMP J Primary CHAMP J [place] [id number] Insurance:MEDICARE KENDALLDOB: Community SEBE PART A BPolicy Number: [id number] East [place] [id number] Repository , [place] [address]Nxv: Date:2018-09-28 () 10/02/2018 Secondary CHAMP J [place] Insurance:[facility]: Community LIFE INS [facility] [id number] Hospital Number: Repository [id number] Date: [place], [place] [address]BR: [id number] 10/02/2018 Tertiary NOT GIVENUNK [place] Insurance:SELF PAY [facility] Number: Effective Repository Date:2018-09-28 09/28/2018 CHAMP J Primary CHAMP J [place] [id number] Insurance:MEDICARE KENDALLDOB: Community SEBE PART A BPolicy Number: [id number] [facility] [id number] Repository , [place] [address]Pov: Date:2018-09-28 () 09/28/2018 Secondary CHAMP J [place] Insurance:[facility] KENDALLDOB: Community LIFE INS [facility] [id number] Hospital Number: Repository [id number] Date: [place], [place] [address]AP: [phone] 09/28/2018 Tertiary NOT GIVENUNK [place] Insurance:SELF PAY [facility] Number: Effective Repository Date:2018-09-28 08/09/2018 CHAMP J Primary CHAMP J [place] [id number] Insurance:MEDICARE KENDALLDOB: Community SEBE PART A BPolicy Number: [id number] [facility] [place] [id number] Repository , [place] [address]Iky: Date:2018-08-03 () 08/09/2018 Secondary CHAMP J [place] Insurance:[facility] STATIONDOB: [facility] LIFE [facility] [id number] Hospital Number: Repository [id number] Date: [place], [place] [address]QK: [phone] 08/09/2018 Tertiary NOT GIVENUNK [place] Insurance:SELF PAY [facility] Number: Effective Repository Date:2018-08-09 08/09/2018 CHAMP J Primary CHAMP J [place] [id number] Insurance:MEDICARE KENDALLDOB: Community SEBE PART A BPolicy Number: [id number] East [place] [id number] Repository , [place] [address]Jbo: Date:2018-08-03 () 08/09/2018 Secondary CHAMP J [place] [facility] LIFE INS [facility] [id number] Hospital Number: Repository [id number] Date: [place], [place] [address]UX: [phone] 08/09/2018 Tertiary NOT GIVENUNK [place] Insurance:SELF PAY [facility] Number: Effective Repository Date:2018-08-03 08/08/2018 CHAMP J Primary CHAMP J [place] [id number] Insurance:MEDICARE KENDALLDOB: Community SEBE PART A olicy Number: [id number] [facility] [place] [id number] Repository , [place] [address]Plz: Date:2018-07-11 () 08/08/2018 Secondary CHAMP J [place] Insurance:[employer] KENDALLDOB: Community LIFE INS [facility] [id number] Hospital Number: Repository [id number] Date: [place], [place] [address]JV: [phone] 08/08/2018 Tertiary NOT GIVENUNK [place] Insurance:SELF PAY [facility] Number: Effective Repository Date:2018-07-11 08/04/2018 CHAMP J Primary CHAMP J [place] [id number] Insurance:MEDICARE KENDALLDOB: Community SEBE PART A [facility] Number: [id number] [facility] [place] [id number] Repository , [place] [address]Ebr: Date:2018-08-04 () 08/04/2018 Secondary CHAMP J [place] Insurance:[facility]: [facility] [id number] Hospital Number: Repository [id number] Date: [place], [place] [address]JH: [id number] 08/04/2018 Tertiary NOT GIVENUNK [place] Insurance:SELF PAY [facility] Hospital Number: Effective Repository Date:2018-08-04 08/03/2018 CHAMP J Primary CHAMP J [place] [id number] Insurance:MEDICARE KENDALLDOB: Community SEBE PART A olicy Number: [id number] East [place] [id number] Repository , [place] [address]Pia: Date:2018-07-03 () 08/03/2018 Secondary CHAMP J [place] Insurance:[facility] [id number] Hospital Number: Repository [id number] Date: [place], [place] [address]VU: [id number] 08/03/2018 Tertiary NOT GIVENUNK [place] Insurance:SELF PAY [facility] Hospital Number: Effective Repository Date:2018-08-03 08/01/2018 CHAMP J Primary CHAMP J [place] [id number] Insurance:MEDICARE KENDALLDOB: [facility] SEBE PART A BPolicy Number: [id number] [facility] [id number] Repository , [place] [address]Ung: Date:2018-08-01 () 08/01/2018 Secondary CHAMP J Isadora Insurance:[facility] KENDALLDOB: Community LIFE INS [facility] [id number] Hospital Number: Repository [id number] Date: [place], [place] [address]NG: [id number] 08/01/2018 Tertiary NOT GIVENUNK [place] Insurance:SELF PAY [facility] INSURANCEAcmh Hospital Number: Effective Repository Date:2018-08-01 07/17/2018 CHAMP J Primary CHAMP J [facility] [facility] KENDALLDOB: Insurance:[facility]ICARE [facility] [place]: Health System AND BPolicy Number: [id number] Repository [facility] [id number] [facility] Date: , [place] [address]Nce: () 07/17/2018 Secondary CHAMP J [place] [facility] Insurance:MUTUAL OF KENDMARGARETB: Health System [place] MEDICARE [id number] Repository SUPPLEMENTPolicy Number: [id number] Date: 07/12/2018 CHAMP J Primary CHAMP J [facility] KENDALLDOB: Insurance:MEDICARE A [facility]: Health System AND BPolicy Number: [id number] Repository [facility] [id number] [facility] Date: , [place] [address]Bcm: () 07/12/2018 Secondary CHAMP J [place] [facility] Insurance:MUTUAL OF KENDKENDOB: Health System [place] MEDICARE [id number] Repository SUPPLEMENTPolicy Number: [id number] Date: 07/12/2018 CHAMP J Primary CHAMP J [facility] KENDALLDOB: Insurance:MEDICARE A KENDALLDOB: Health System [id number] AND BPolicy Number: [id number] Repository SEB [id number] [facility] Date: , [place] [address]Toa: () 07/12/2018 Secondary CHAMP J [facility] [facility] Insurance:MUTUAL OF KENDALLDOB: Health System [place] MEDICARE [id number] Repository SUPPLEMENTPolicy Number: [id number] Date: 07/11/2018 CHAMP J Primary CHAMP J Isadora [id number] Insurance:[facility]ICARE [facility] [place]: [facility] SEB PART A BPolicy Number: [id number] [facility] [id number] Repository , [place] [address]Bqj: Date:2018-06-19 () 07/11/2018 Secondary CHAMP García Isadora Insurance:[facility] KENDALLDOB: Community [facility] [id number] Hospital Number: Repository [id number] Date: [place] [address]AH: [id number] 07/11/2018 Tertiary NOT GIVENUNK [place] Insurance:SELF PAY [facility] Number: Effective Repository Date:2018-06-20 07/11/2018 CHAMP J Primary CHAMP J [facility] KENDALLDOB: Insurance:MEDICARE A KENDALLDOB: Health System [id number] AND BPolicy Number: [id number] Repository SEB [id number] [facility] Date: , [place] [address]Woo: () 07/11/2018 Secondary CHAMP J [place] [facility] Insurance:MUTUAL OF KENDALLDOB: Health System [place] MEDICARE [id number] Repository SUPPLEMENTPolicy Number: [id number] Date: 07/11/2018 CHAMP J Primary CHAMP J [facility] [facility] KENDALLDOB: Insurance:MEDICARE A [facility] [place]: Health System [id number] AND BPolicy Number: [id number] Repository [facility] [id number] Date: , [place] [address]Oio: () 07/11/2018 Secondary CHAMP J [place] [facility] Insurance:MUTUAL OF KENDVALLEY CHILDREN’[facility]OSPITALDOB: [facility] [place] [id number] Repository SUPPLEMENTPolicy Number: [id number] Date: 06/29/2018 CHAMP J Primary CHAMP J Isadora [id number] Insurance:MEDICARE KENDALLDOB: Community SEBE PART A BPolicy Number: [id number] [facility] [id number] Repository , [place] [address]Wis: Date:2018-06-29 () 06/29/2018 Secondary CHAMP J [place] Insurance:[place] SAVOONGADOB: Community LIFE INS [facility] [id number] Hospital Number: Repository [id number] Date: [place], [place] [address]HS: [id number] 06/29/2018 Tertiary NOT GIVENUNK [place] Insurance:SELF PAY [facility] Hospital Number: Effective Repository Date:2018-06-29 06/29/2018 CHAMP J Primary CHAMP J [place] [id number] Insurance:MEDICARE KENDALLDOB: Community SEBE PART A BPolicy Number: [id number] [facility] [id number] Repository , [place] [address]Hvh: Date:2018-06-29 () 06/29/2018 Secondary CHAMP J Isadora Insurance:[facility] STATIONDOB: Community LIFE INS [facility] [id number] Hospital Number: Repository [id number] Date: [place], [place] [address]UQ: [id number] 06/29/2018 Tertiary NOT GIVENUNK [place] Insurance:SELF PAY [facility] Number: Effective Repository Date:2018-06-29 06/29/2018 CHAMP J Primary CHAMP J Isadora [id number] Insurance:MEDICARE KENDALLDOB: Community SEBE PART A BPolicy Number: [id number] [facility] [id number] Repository , [place] [address]Npp: Date:2018-06-29 () 06/29/2018 Secondary CHAMP J Isadora Insurance:[place] [facility]: Community LIFE INS [facility] [id number] Hospital Number: Repository [id number] Date: [place], [place] [address]KD: [id number] 06/29/2018 Tertiary NOT GIVENUNK [place] Insurance:SELF PAY [facility] Number: Effective Repository Date:2018-06-29 06/29/2018 CHAMP J Primary CHAMP J Isadora [id number] Insurance:MEDICARE KENDALLDOB: Community SEBE PART A BPolicy Number: [id number] [facility] [id number] Repository , [place] [address]Bkd: Date:2018-06-29 () 06/29/2018 Secondary CHAMP J [place] Insurance:[facility] KENDVALLEY [facility]DR[facility]ITALDOB: [facility] LIFE [facility] [id number] Hospital Number: Repository [id number] Date: [place], [place] [address]HG: [phone] 06/29/2018 Tertiary NOT GIVENUNK [place] Insurance:SELF PAY [facility] Number: Effective Repository Date:2018-06-29 06/29/2018 CHAMP J Primary CHAMP J [place] [id number] Insurance:MEDICARE KENDALLDOB: Community SEBE PART A BPolicy Number: [id number] [facility] [id number] Repository , [place] [address]Ycl: Date:2018-06-29 () 06/29/2018 Secondary CHAMP J [place] Insurance:[facility] STATIONDOB: Critical Access Hospital LIFE [facility] [id number] Hospital Number: Repository [id number] Date: [place] [address]ZF: [id number] 06/29/2018 Tertiary NOT GIVENUNK [place] Insurance:SELF PAY Community [facility] Hospital Number: Effective Repository Date:2018-06-29 06/29/2018 CHAMP García Primary CHAMP RIZVIB: Insurance:[facility] A [facility]: Health System AND BPolicy Number: [id number] Repository SEB [id number] [facility] Date: , [place] [address]Nha: () 06/29/2018 Secondary CHAMP [facility] Insurance:MUTUAL OF [place]Z: [facility] [place] MEDICARE [id number] Repository SUPPLEMENTPolicy Number: [id number] Date: 06/29/2018 CHAMP García Primary CHAMP RIZVIB: Insurance:MEDICARE A [facility]: Health System AND BPolicy Number: [id number] Repository SEBE [id number] [facility] Date: , [place] [address]Jzq: () 06/29/2018 Secondary CHAMP [facility] Insurance:MUTUAL OF [place]: Health System [place] MEDICARE [id number] Repository SUPPLEMENTPolicy Number: [id number] Date:
== END ==
PROVIDERS: Family Provider Internal Medicine; PCP Internal Medicine; Referring Provider Internal Medicine; Visit Provider Internal Medicine
DX: I25.10 Atherosclerotic heart disease of native coronary artery without angina pectoris (principal); I10 Essential (primary) hypertension; D50.0 Iron deficiency anemia secondary to blood loss (chronic); E11.9 Type 2 diabetes mellitus without complications; E03.9 Hypothyroidism, unspecified
CPT/HCPCS: 36415; 80048; 80061; 82043; 82570; 84439; 84443; 85025

== ENCOUNTER 2018-11-23 08:04 | Outpatient (RCR) | payer MEDICARE, OTHER, SELFPAY ==
[2018-11-06 08:08] VITALS: BMI 35.5
== END 2018-11-23 23:59 ==
LOC: DC 08:04
PROVIDERS: Family Provider Internal Medicine; PCP Internal Medicine; Visit Provider Internal Medicine
DX: E11.9 Type 2 diabetes mellitus without complications (principal); Z71.3 Dietary counseling and surveillance
CPT/HCPCS: G0108

== ENCOUNTER 2018-12-19 08:30 | Outpatient (RCR) | payer MEDICARE, OTHER, SELFPAY ==
[2018-11-06 08:08] VITALS: BMI 35.5
== END 2018-12-19 23:59 | disposition home or self-care (01) ==
LOC: DC 08:30
PROVIDERS: Family Provider Internal Medicine; PCP Internal Medicine; Visit Provider Internal Medicine
DX: E11.9 Type 2 diabetes mellitus without complications (principal)
CPT/HCPCS: 97802; 97803; G0108

== ENCOUNTER → 2019-06-01 08:41 | Outpatient (CLI) | payer MEDICARE, OTHER, SELFPAY ==
[2019-02-22 13:02] VITALS: BMI 35.2
[2019-05-11 13:01] VITALS: BMI 35.2
== END ==
PROVIDERS: Family Provider Internal Medicine; PCP Internal Medicine; Referring Provider Internal Medicine Cardiovascular Disease; Visit Provider Internal Medicine Cardiovascular Disease
DX: I25.10 Atherosclerotic heart disease of native coronary artery without angina pectoris (principal); I42.0 Dilated cardiomyopathy; I50.9 Heart failure, unspecified
CPT/HCPCS: 93308; Q9957; A4216; C8924

== ENCOUNTER → 2019-06-04 09:38 | Outpatient (CLI) | payer MEDICARE, OTHER, SELFPAY ==
[2019-06-04 09:07] VITALS: BMI 35.3
[2019-06-04 12:54] LABS: AST(SGOT) 20 U/L (15-37); Alanine Aminotransfer ALT/SGPT 34 U/L (16-61); Albumin, Serum 3.7 g/dL (3.2-5.0); Alkaline Phosphatase 34 U/L (45-117); Anion Gap 8 (5-15); BUN 19 mg/dL (7-18); BUN/Creat Ratio 17.9 RATIO (10-20); Calcium,Total 8.6 mg/dL (8.5-10.1); Chloride 104 mmol/L (98-107); Creatinine, Serum 1.06 mg/dL (0.70-1.30); EST Glomerular Filtration Rate 74 mL/min (>60); Est Glom Filt Rate - Afr Amer 90 mL/min (>60); Globulin 3.6 g/dL (2.2-4.2); Glucose 110 mg/dL (74-106); Potassium 4.5 mmol/L (3.5-5.1); Protein, Total 7.3 g/dL (6.4-8.2); Sodium Level 137 mmol/L (136-145); Thyroid Stim Hormone (TSH) 0.38 uIU/mL (0.358-3.74)
== END ==
PROVIDERS: Family Provider Internal Medicine; PCP Internal Medicine; Visit Provider Internal Medicine
DX: I10 Essential (primary) hypertension (principal); E11.9 Type 2 diabetes mellitus without complications; E03.9 Hypothyroidism, unspecified
CPT/HCPCS: 36415; 80053; 84443

== ENCOUNTER → 2019-12-04 08:57 | Outpatient (CLI) | payer MEDICARE, OTHER, SELFPAY ==
[2019-12-04 08:26] VITALS: BMI 36.0
[2019-12-04 13:07] LABS: Absolute Lymphocyte Count 1.79 X10^3/uL (0.83-4.51); Absolute Neutrophil Count 4.6 X10^3/uL (2.0-7.7); Basophil# 0.08 X10^3/uL; Eosinophil# 0.34 X10^3/uL; Eosinophils% 4.4 % (0-5); Hematocrit 47.6 % (40-54); Hemoglobin 15.2 g/dL (13.0-16.5); Lymphocyte # 1.79 X10^3/ul (4.0); Lymphocyte % 23.3 % (19-41); Mean Corp Hgb Conc 31.9 g/dL (32-36); Mean Corpuscular Hgb 29.9 pg (27.0-32.0); Mean Corpuscular Volume 93.5 fL (80-94); Mean Platelet Vol. 11.3 fl (6.2-12.0); Monocyte# 0.81 X10^3/uL; Monocyte% 10.5 % (0-10); NRBC Flagged by Analyzer 0 % (0-5); Neutrophil % 59.9 % (47-70); Platelet Count 192 K/mm3 (150-450); RBC Distribution Width CV 13.2 % (11.6-14.6); Red Blood Count 5.09 M/mm3 (4.6-6.2); White Blood Count 7.7 K/mm3 (4.4-11.0)
[2019-12-04 13:20] LABS: Microalbumin,Random Urine < 5.0 mg/L (NO RANGE EST.)
[2019-12-04 13:58] LABS: Albumin, Serum 3.6 g/dL (3.2-5.0); BUN 17 mg/dL (7-18); BUN/Creat Ratio 15.5 RATIO (10-20); EST Glomerular Filtration Rate 71 mL/min (>60); Est Glom Filt Rate - Afr Amer 86 mL/min (>60); Globulin 3.5 g/dL (2.2-4.2); Glucose 108 mg/dL (74-106); Protein, Total 7.1 g/dL (6.4-8.2)
[2019-12-04 13:59] LABS: AST(SGOT) 14 U/L (15-37); Alanine Aminotransfer ALT/SGPT 32 U/L (16-61); Alkaline Phosphatase 34 U/L (45-117); Anion Gap 6 (5-15); Chloride 105 mmol/L (98-107); Cholesterol 114 mg/dL (200); High Density Lipoprotein 48 mg/dL; Potassium 4.1 mmol/L (3.5-5.1); Sodium Level 137 mmol/L (136-145); Thyroid Stim Hormone (TSH) 0.26 uIU/mL (0.358-3.74); Triglycerides 91 mg/dL; Very Low Density Lipoprotein 18 mg/dL (5-40)
== END ==
PROVIDERS: PCP Internal Medicine; Referring Provider Internal Medicine; Visit Provider Internal Medicine
DX: E11.9 Type 2 diabetes mellitus without complications (principal); E78.5 Hyperlipidemia, unspecified; E03.9 Hypothyroidism, unspecified
CPT/HCPCS: 36415; 80053; 80061; 82043; 82570; 84443; 85025

== ENCOUNTER → 2020-08-19 08:20 | Outpatient (CLI) | payer MEDICARE, OTHER, SELFPAY ==
[2020-08-11 08:16] VITALS: BMI 34.9
--- NOTE | 2020-08-19 08:17 | EKG12_ITS ---
Test Reason : PREOP Blood Pressure : / mmHG Vent. Rate : 079 BPM Atrial Rate : 079 BPM P-R Int : 174 ms QRS Dur : 168 ms QT Int : 416 ms P-R-T Axes : 054 046 105 degrees QTc Int : 477 ms Normal sinus rhythm Left bundle branch block Abnormal ECG Confirmed by YANIQUE LAU, WALTER ([id number]), newspaper copy editor MARKEL PAULSON ([id number]) on 08/20/2020 9:12:55 AM Referred By: Chip Rosas Confirmed By:WALTER CHANEL MD
[2020-08-19 08:40] LABS: Hematocrit 44.9 % (40-54); Hemoglobin 14.2 g/dL (13.0-16.5); Mean Corp Hgb Conc 31.6 g/dL (32-36); Mean Corpuscular Hgb 29.3 pg (27.0-32.0); Mean Corpuscular Volume 92.8 fL (80-94); Mean Platelet Vol. 10.6 fl (6.2-12.0); Platelet Count 194 K/mm3 (150-450); RBC Distribution Width CV 13.2 % (11.6-14.6); RBC Distribution Width SD 45.1 fl (35.1-43.9); Red Blood Count 4.84 M/mm3 (4.6-6.2); White Blood Count 7.3 K/mm3 (4.4-11.0)
[2020-08-19 08:55] LABS: Anion Gap 6 (5-15); BUN 20 mg/dL (7-18); Calcium,Total 8.4 mg/dL (8.5-10.1); Chloride 105 mmol/L (98-107); EST Glomerular Filtration Rate 79 mL/min (>60); Est Glom Filt Rate - Afr Amer 95 mL/min (>60); Glucose 170 mg/dL (74-106); Potassium 3.8 mmol/L (3.5-5.1); Sodium Level 138 mmol/L (136-145)
== END ==
PROVIDERS: PCP Internal Medicine; Referring Provider Physician Assistant; Visit Provider Physician Assistant
DX: Z01.810 Encounter for preprocedural cardiovascular examination (principal); Z11.59 Encounter for screening for other viral diseases
CPT/HCPCS: 36415; 80048; 85027; 93005; C9803

== ENCOUNTER → 2020-08-19 11:18 | Outpatient (CLI) | payer MEDICARE, OTHER, SELFPAY ==
[2020-05-12 08:10] VITALS: BMI 35.2
[2020-08-11 08:16] VITALS: BMI 34.9
== END ==
PROVIDERS: PCP Internal Medicine; Visit Provider Physician Assistant
DX: Z01.810 Encounter for preprocedural cardiovascular examination (principal); Z11.59 Encounter for screening for other viral diseases
CPT/HCPCS: 36415; 80048; 85027; 87635; 93005; C9803; U0003

== ENCOUNTER 2020-12-17 08:39 | Outpatient (RCR) | payer MEDICARE, OTHER, SELFPAY ==
[2020-11-17 08:49] VITALS: BMI 34.7
== END 2020-12-17 23:59 ==
LOC: IMMUN 08:39
PROVIDERS: PCP Internal Medicine; Visit Provider Family Medicine
DX: Z23 Encounter for immunization (principal)
CPT/HCPCS: 0011A; 0012A; 91301

== ENCOUNTER 2021-02-11 07:14 | Day surgery (SDC) | payer MEDICARE, OTHER, SELFPAY ==
[2021-01-22 13:16] VITALS: BMI 33.7
--- NOTE | 2021-02-11 07:22 | HP_ITS ---
Intake Vital Signs 01/22/21 Height 5 ft 10 in 01/22/21 Weight: 235 lb 01/22/21 BMI 33.7 01/22/21 BP 124/74 H 01/22/21 Blood Pressure Location Rt brachial 01/22/21 Position Sitting 01/22/21 Respiration 16 Intake Visit Reasons: CSCOPE Chief Complaint: c-scope Food Vendor Required: No Is patient in pain?: No Allergies Penicillins Allergy (Verified 01/22/21 13:17) Hives tetracycline Allergy (Verified 01/22/21 13:17) Hives losartan Adverse Reaction (Severe, Verified 01/22/21 13:17) lightheadedness Medications blood sugar diagnostic See Dose Instructions .ROUTE .MEDSUPPLY #100 ea 11/06/18 [Rx Confirmed 01/22/21] blood-glucose meter See Dose Instructions .ROUTE .MEDSUPPLY #1 ea 11/06/18 [Rx Confirmed 01/22/21] lancets 28 gauge See Dose Instructions .ROUTE .MEDSUPPLY #100 ea 01/05/19 [Rx Confirmed 01/22/21] metformin 500 mg tablet,extended release 24hr 500 mg PO QAM tab 05/11/19 [History Confirmed 01/22/21] blood sugar diagnostic See Rx Instructions .ROUTE .COMPLEX #100 strip 11/20/19 [Rx Confirmed 01/22/21] lisinopril 10 mg tablet 10 mg PO DAILY #180 tab 05/27/20 [Rx Confirmed 01/22/21] atorvastatin 40 mg tablet 40 mg PO QHS #90 tab 07/17/20 [Rx Confirmed 01/22/21] carvedilol 12.5 mg tablet 12.5 mg PO BID #180 tab 07/17/20 [Rx Confirmed 01/22/21] clopidogrel 75 mg tablet 75 mg PO DAILY #90 tab 07/17/20 [Rx Confirmed 01/22/21] hydrochlorothiazide 12.5 mg tablet 12.5 mg PO DAILY #90 tab 07/17/20 [Rx Confirmed 01/22/21] spironolactone 25 mg tablet 25 mg PO DAILY #90 tab 07/17/20 [Rx Confirmed 01/22/21] tamsulosin 0.4 mg capsule 0.4 mg PO DAILY #90 cap 07/17/20 [Rx Confirmed 01/22/21] pantoprazole 40 mg tablet,delayed release 40 mg PO DAILY #90 tab 11/03/20 [Rx Confirmed 01/22/21] levothyroxine 125 mcg tablet 125 mcg PO DAILY tab 11/17/20 [History Confirmed 01/22/21] PFSH Medical History 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) Type 2 diabetes mellitus (Chronic) RUTHY (obstructive sleep apnea) (Chronic) Lumbago (Chronic) PVD (peripheral vascular disease) (Chronic) BPH (benign prostatic hyperplasia) (Chronic) Arthritis (Chronic) Duodenal ulcer (Acute) GI bleed (Acute) Hypothyroidism (Chronic) HLD (hyperlipidemia) (Chronic) Gastroesophageal reflux disease (Chronic) Benign essential HTN (Chronic) History of TIA (transient ischemic attack) (Acute) History of carotid artery dissection (Acute) History of kidney stones (Acute) Peripheral arterial disease (Acute) Chronic systolic (congestive) heart failure (Chronic) Cardiomyopathy (Inactive) Surgical History S/P insertion of iliac artery stent (Chronic) History of left knee surgery (Resolved) Family History Father Cancer lung Myocardial infarction Mother Cancer liver Diabetes Social History (Updated 01/22/21 @ 13:[address] Clarisa Hilton MD) Smoking Status: Former smoker Tobacco: How many years used: 40 how long ago did patient quit smokin alcohol intake: current alcohol intake frequency: a few times a month substance use type: does not use what type of physical activity do you participate in: none HPI HPI HPI: MAYE BAEZ, is a 70 M who presents to the office today for HPI HPI HPI: MAYE BAEZ, is a 70 M who presents to the office today for screening colonoscopy. Patient's last colonoscopy was done by Dr. Mallory 11/15/2017 which patient did have inflammatory polyp in the ascending colon which was removed piecemeal as well as some hyperplastic polyps in the rectosigmoid. Patient states he has bowel movements daily. denies any blood denies any family history of colon cancer. Exam Const General: cooperative, comfortable, no acute distress, well developed Resp Effort & Inspection: normal respiratory effort Cardio Rate: regular rate GI Inspection: non-distended Palpation: soft, no guarding, nontender Psych Affect: normal affect Assessment & Plan Problems 1. Hx of colonic polyps Z86.010 Plan I have discussed the above with the patient. I have offered the patient colonoscopy for evaluation. Patient requested February 11 I have explained the risks/benefits of the procedure and described the procedure. I have discussed the risks with the patient, including but not limited to: infection, bleeding, perforation of the GI tract requiring emergency surgery, inability to complete the procedure, injury to any internal organs, complications of anesthesia, etc. - the patient understands and agrees to proceed. I have answered all the patient's questions to the patient's satisfaction and the patient has no further questions. The patient has been given instructions for the colon cleansing preparation. 1 day of clears, MiraLAX Dulcolax split prep. Clarisa Hilton M.D. Pager: [phone] [facility] [address] [place] [address], [address] [place] [address] Office: [phone] Plan Detail Follow Up We will schedule colonoscopy Coding Level of Care Code Off vis,est,level 3 Diagnoses Hx of colonic polyps Z86.010 I have re-examined the patient. There are no clinical changes since date of exam.
[2021-02-11 07:48] VITALS: BP 131/78; PULSE 85; RESP 16; TEMP 36.3; O2SAT 93; BMI 34.5
[2021-02-11] MEDS: Lactated Ringers 1,000 ML 100 ML IV (07:53)
--- NOTE | 2021-02-11 08:15 | COLBX_PTH ---
PATIENT: MAYE BAEZ LOC: EN U#:[id number] AGE/SX: 70/M ROOM: RE02/11/[address]: Dr. Clarisa Hilton MD : 1950 BED: DIS: 02/11/2021 SPEC #: [id number] RECD: 02/11/21 09:45 STATUS: ARIK REAndrew #: [id number] MANNY: 02/11/21 08:[address]: Clarisa Hilton DEPT: SURGICAL PATHOLOGY RECD BY: Oralia Daley ENTERED: 02/11/21 11:09 SP TYPE: COLON BX GIUSEPPE DR: Dr. Suki Brewer MD Tissues: A - Sigmoid colon biopsy B - Rectum, NOS Procedures: Surgery Specimen Level IV HEADER OPERATION: Colonoscopy (MAC) PRE-OP DIAGNOSIS: History of colonic polyps TISSUE SUBMITTED: A - Sigmoid polyp biopsy, B - Rectal polyp biopsy MICROSCOPIC DIAGNOSIS A. Sigmoid polyp, biopsy: A fragment of colonic mucosa, no pathologic diagnosis. B. Rectal polyp, biopsy: Fragments of hyperplastic polyp. SJ:bhavin 02/12/2021 MICROSCOPIC DESCRIPTION Slides are reviewed. GROSS DESCRIPTION A - Received in fixative is one container labeled with the patient's name and designated sigmoid colon polyp. The specimen consists of one irregular fragment of light norman soft tissue that measures 0.3 x 0.3 x 0.1 cm. The specimen is totally submitted in one cassette. B - Received in fixative is one container labeled with the patient's name and designated rectal polyp biopsy. The specimen consists of multiple irregular fragments of light norman soft tissue that in aggregate measure 1 x 0.5 x 0.1 cm. The specimen is totally submitted in one cassette. / AM:bhavin 02/11/21 TC:1 CPT: 07099 x2
[2021-02-11 08:50] VITALS: BP 131/78; BP 76/40; PULSE 81; RESP 16; TEMP 37.3; O2SAT 91
[2021-02-11 08:55] VITALS: BP 131/78; BP 83/67; PULSE 69; RESP 16; O2SAT 94
[2021-02-11 09:00] VITALS: BP 131/78; BP 90/71; PULSE 68; RESP 16; O2SAT 94
[2021-02-11 09:05] VITALS: BP 131/78; BP 97/72; PULSE 69; PULSE 71; RESP 16; TEMP 36.9; O2SAT 95
[2021-02-11 09:25] VITALS: BP 131/78
[2021-02-11 11:00] LABS: Bedside Glucose 130 mg/dL (70-110)
--- NOTE | 2021-02-11 12:47 | OP.CCLET_ITS ---
02/11/2021 Suki Brewer MD [address] [place] [address] [place] [address] Re : Colonoscopy procedure for Champ Noonan Dear Dr. Brewer This procedure was performed on Thursday, February 11, 2021. My impressions and recommendations are as follows: Impressions : - Diverticulosis in the sigmoid colon and in the descending colon. - Five less than 5 mm polyps in the rectum and in the sigmoid colon, removed with a cold biopsy forceps. Resected and retrieved. - The examination was otherwise normal. Recommendations : - Discharge patient to home. - High fiber diet. - Resume Plavix (clopidogrel) at prior dose tomorrow. - Repeat colonoscopy in 5-10 years [reason]. - Repeat colonoscopy is recommended for surveillance. The colonoscopy date will be determined after pathology results from today's exam become available for review. My findings are described in the full procedure note, which is enclosed. If I can be of further assistance, please feel free to contact me at Doctor phone number(s): , Work: . Sincerely, MD Clarisa Garcia MD 02/11/2021 8:56:08 AM This report has been signed electronically.
--- NOTE | 2021-02-11 12:47 | OP.COLON_ITS ---
Patient Name: Champ Noonan Procedure Date: 02/11/2021 8:07 AM Date of : 1950 Age: 70 Procedure: Colonoscopy Indications: High risk colon cancer surveillance: Personal history of colonic polyps Providers: Clarisa Hliton MD Referring MD: Suki Brewer MD Medicines: Monitored Anesthesia Care Patient Profile: This is a 70 year old male. Last Colonoscopy: October 2017. Complications: No immediate complications. Procedure: Pre-Anesthesia Assessment: - Prior to the procedure, a History and Physical was performed, and patient medications and allergies were reviewed. The patient's tolerance of previous anesthesia was also reviewed. The risks and benefits of the procedure and the sedation options and risks were discussed with the patient. All questions were answered, and informed consent was obtained. Prior Anticoagulants: The patient has taken Plavix (clopidogrel), last dose was 5 days prior to procedure- pt was continued on Aspirin. ASA Grade Assessment: Per anesthesia. After reviewing the risks and benefits, the patient was deemed in satisfactory condition to undergo the procedure. After I obtained informed consent, the scope was passed under direct vision. Throughout the procedure, the patient's blood pressure, pulse, and oxygen saturations were monitored continuously. The colonoscope was introduced through the anus and advanced to the cecum, identified by the appendiceal orifice, ileocecal valve and palpation. The colonoscopy was performed without difficulty. The patient tolerated the procedure well. The quality of the bowel preparation was good. Scope In: 8:14:10 AM Scope Withdrawal Time 0 hours 20 minutes 13 seconds Scope Out: 8:43:46 AM Total Procedure Duration Time 0 hours 29 minutes 36 seconds Findings: The perianal and digital rectal examinations were normal. Multiple small-mouthed diverticula were found in the sigmoid colon and descending colon. Five sessile polyps were found in the rectum and sigmoid colon. The polyps were less than 5 mm in size. These polyps were removed with a cold biopsy forceps. Resection and retrieval were complete. The exam was otherwise without abnormality. Impression: - Diverticulosis in the sigmoid colon and in the descending colon. - Five less than 5 mm polyps in the rectum and in the sigmoid colon, removed with a cold biopsy forceps. Resected and retrieved. - The examination was otherwise normal. Recommendation: - Discharge patient to home. - High fiber diet. - Resume Plavix (clopidogrel) at prior dose tomorrow. - Repeat colonoscopy in 5-10 years [reason]. - Repeat colonoscopy is recommended for surveillance. The colonoscopy date will be determined after pathology results from today's exam become available for review. Procedure Code(s): --- Professional --- 78866, PT, Colonoscopy, flexible; with biopsy, single or multiple Diagnosis Code(s): --- Professional --- Z86.010, Personal history of colonic polyps K62.1, Rectal polyp D12.5, Benign neoplasm of sigmoid colon K57.30, Diverticulosis of large intestine without perforation or abscess without bleeding CPT copyright 2017 [employer]. All rights reserved. The codes documented in this report are preliminary and upon dough mixer review may be revised to meet current compliance requirements. MD Clarisa Garcia MD 02/11/2021 8:56:08 AM This report has been signed electronically. Number of Addenda: 0 Note Initiated On: 02/11/2021 8:07 AM
== END 2021-02-11 09:29 | disposition home or self-care (01) ==
LOC: EN 07:15 → AC 07:19
PROVIDERS: PCP Internal Medicine; Referring Provider Internal Medicine; Visit Provider Surgery
PROC: 0DJD8ZZ Inspection of Lower Intestinal Tract, Via Natural or Artificial Opening Endoscopic (ICD-10-PCS; CPT 45378; principal; 2021-02-11 08:10)
DX: Z12.11 Encounter for screening for malignant neoplasm of colon (principal); K62.1 Rectal polyp; K63.5 Polyp of colon; K57.30 Diverticulosis of large intestine without perforation or abscess without bleeding; E78.5 Hyperlipidemia, unspecified; E03.9 Hypothyroidism, unspecified; E11.9 Type 2 diabetes mellitus without complications; I11.0 Hypertensive heart disease with heart failure; I50.9 Heart failure, unspecified; K21.9 Gastro-esophageal reflux disease without esophagitis; I25.10 Atherosclerotic heart disease of native coronary artery without angina pectoris; N40.0 Benign prostatic hyperplasia without lower urinary tract symptoms; Z79.84 Long term (current) use of oral hypoglycemic drugs; Z87.891 Personal history of nicotine dependence; Z79.899 Other long term (current) drug therapy; Z86.010 Personal history of colon polyps
CPT/HCPCS: 45380; 82962; 88305; J7120; J2405

== ENCOUNTER → 2021-09-28 09:15 | Outpatient (CLI) | payer MEDICARE, OTHER, SELFPAY ==
--- NOTE | 2021-09-28 09:17 | RAD_ITS ---
STUDY: X-RAY - CERVICAL SPINE REASON FOR EXAM: Male, 70 years old. Cervical radiculopathy. TECHNIQUE: 5 view(s) of the cervical spine were obtained. COMPARISON: None FINDINGS: Osteopenia. Normal anterior atlantoaxial articulation. Normal odontoid process. Reversal of the normal lordotic curve. Diffuse moderate uncovertebral and facet sclerosis. 4 mm anterolisthesis of C4 on C5 and 3 mm of anterolisthesis of C5 on C6. Intervertebral disc space narrowing at C3-4, C4-5, C5-6, C6-7 and C7-T1 with osteophyte formation most marked at C5-6, C6-7 and C7-T1. The soft tissue structures are unremarkable. RAD/Cerv Spine 2 or 3 Views IMPRESSION: Osteopenia with moderate to marked lower cervical spondylosis. No acute abnormality or evidence of erosive changes or fusion. Electronically Signed: Chip Lebron MD at 9:56 EST , Service support ,
== END ==
PROVIDERS: PCP Internal Medicine; Referring Provider Internal Medicine; Visit Provider Internal Medicine
DX: M54.12 Radiculopathy, cervical region (principal)
CPT/HCPCS: 72040

== ENCOUNTER 2021-10-29 08:43 | Outpatient (CLI) | payer MEDICARE, OTHER, SELFPAY ==
--- NOTE | 2021-10-29 08:55 | BD_ITS ---
STUDY: DUAL ENERGY X-RAY ABSORPTIOMETRY / DXA REASON FOR EXAM: Male, 70 years old. M85.89 TECHNIQUE: Bone Mineral Density (BMD) measurements of lumbar spine and bilateral hips were obtained. COMPARISON: None. FINDINGS: Lumbar Spine (L1-L4): g/cm2 (0.959) / T-score (-1.2) / Z-score (-0.3) Findings are suggestive of osteopenia with a low fracture risk. Left Femur Total: g/cm2 (0.755) / T-score (-1.8) / Z-score (-1.2) Left Femoral Neck: g/cm2 (0.646) / T-score (-2.1) / Z-score (-0.9) Right Femur Total: g/cm2 (0.815) / T-score (-1.4) / Z-score (-0.8) Right Femoral Neck: g/cm2 (0.740) / T-score (-1.4) / Z-score (-0.2) BD/Dexa Bone Density Study IMPRESSION: The patient is considered osteopenic as outlined below according to World Chris Organization (WHO) criteria with a moderate fracture risk. Reference Information: The T-score is the number of standard deviations above or below the standard which is normal for young adults at their peak bone mineral density. The World Health Organization (WHO) interprets the T-scores as follows: Above -1 Normal bone density Between -1 and -2.5 Osteopenia Equal to / or below -2.5 Osteoporosis As a practical clinical guideline, osteopenia may be graded as follows: Mild -1 through -1.5 Moderate -1.6 through -2.0 Severe -2.1 through -2.4 The Z-score is the number of standard deviations above or below age-matched controls. A Z-score of less than -1.5 would be considered abnormal. References: 1. NIH Osteoporosis and Related Bone Diseases www osteo.org 2. International Society for Clinical Densitometry www iscd.org 3. National Osteoporosis Foundation www nof.org Electronically Signed: Herb River MD at 10:21 EST , Service support ,
== END 2021-10-29 23:59 | disposition short-term general hospital (02) ==
LOC: OPBD 08:45
PROVIDERS: PCP Internal Medicine; Visit Provider Internal Medicine
DX: M85.89 Other specified disorders of bone density and structure, multiple sites (principal)
CPT/HCPCS: 77080

== ENCOUNTER 2021-10-29 10:30 | Outpatient (RCR) | payer MEDICARE, OTHER, SELFPAY ==
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
== END 2021-10-29 19:00 | disposition home or self-care (01) ==
LOC: PT 10:30
PROVIDERS: PCP Internal Medicine; Referring Provider Internal Medicine; Visit Provider Internal Medicine
DX: M54.12 Radiculopathy, cervical region (principal)
CPT/HCPCS: 97035; 97110; 97162; 97530

== ENCOUNTER 2021-12-10 08:16 | Outpatient (CLI) | payer MEDICARE, OTHER, SELFPAY ==
--- NOTE | 2021-12-10 08:17 | CT_ITS ---
STUDY: CT BRAIN WITHOUT CONTRAST REASON FOR EXAM: Male, 71 years old. Headache, Closed head Injury RADIATION DOSAGE (If Supplied By Facility): CTDIvol = ( 44.99 ) mGy, DLP = ( 880.47 ) mGycm TECHNIQUE: Transaxial CT imaging of the brain was performed without administration of intravenous contrast material. Individualized dose optimization techniques were used for this CT. COMPARISON: No relevant priors. FINDINGS: Normal soft tissue structures. Normal calvarium. There is mild cerebral atrophy with widening of the extra-axial spaces and ventricular dilatation. Normal white matter tracts of the cerebral hemispheres. Normal basal ganglia and thalami. Normal brainstem. Normal cerebellum. There is no intracranial hemorrhage. There are no findings of an acute ischemic infarction. Normal visualized paranasal sinuses. CT/Brain/Head without Contrast IMPRESSION: Chronic involutional changes of the brain. Electronically Signed: Zia Angulo MD at 8:44 EST ,
== END 2021-12-10 23:59 | disposition home or self-care (01) ==
LOC: CT 08:17
PROVIDERS: PCP Internal Medicine; Referring Provider Internal Medicine; Visit Provider Internal Medicine
DX: S06.0X9A Concussion with loss of consciousness of unspecified duration, initial encounter (principal)
CPT/HCPCS: 70450

== ENCOUNTER 2023-09-07 14:28 | Emergency (ER) | payer MEDICARE, OTHER, SELFPAY ==
[2023-09-07 14:29] VITALS: BP 121/87; PULSE 102; RESP 16; TEMP 36.6; O2SAT 96; BMI 34.5
--- NOTE | 2023-09-07 15:18 | CT_ITS ---
INDICATION: Hematuria EXAMINATION: CT Abdomen And Pelvis W/O Contrast Injection TECHNIQUE: Helically acquired images were obtained of the abdomen and pelvis without the use of IV contrast. A radiation dose optimization technique was used for this scan. Oral contrast: None. COMPARISON: None FINDINGS: Evaluation of the solid organs and vascular structures is limited without intravenous contrast. Visualized lung bases: Unremarkable Liver: Unremarkable Gallbladder: Unremarkable Spleen: Unremarkable Pancreas: Unremarkable Adrenal Glands: Unremarkable Kidneys: Unremarkable Vasculature: Severe aortoiliac atherosclerotic disease. GI Tract: Scattered diverticula throughout the colon without evidence of inflammation. Lymphadenopathy: None Peritoneum: No ascites. Bladder: Unremarkable Reproductive organs: There are prostatic calcifications. Bones/Soft tissues: There are diffuse degenerative changes of the spine. CT/Abdomen/Pelvis without Cont IMPRESSION: No acute abnormalities in the abdomen or pelvis. Specifically, no findings to explain hematuria. Electronically Signed: Geo Gill MD at 17:06 EST ,
--- NOTE | 2023-09-07 15:22 | EX.ED.DYSGE1 ---
HPI History of Present Illness Chief Complaint: Complaint Informant: patient Onset/Context/Timing Onset: Today Context: Sudden Onset Timing: Intermittent Quality: Dark red blood clots Location: Urine Worsened by: Nothing Relieved by: Nothing Narrative Narrative: Patient presents with hematuria that began today. Patient states he passed 2 blood clots through his urethra approximately 4 hours prior to arrival. Patient denies any dysuria. Patient denies any abdominal pain or flank pain. Patient denies any nausea or vomiting. Patient denies any fevers or chills. Patient states he has had kidney stones in the past but these have always been painful. Patient is on Plavix but is not on any anticoagulants. [facility] Medical History (Updated 09/07/23 @ 17:[address] Vishal Jerez, DO) Arthritis Atherosclerotic heart disease of [place] coronary artery without angina pectoris Benign essential HTN Bleeding ulcer BPH (benign prostatic hyperplasia) Cardiomyopathy Cervical radiculopathy Chronic systolic (congestive) heart failure Concussion Duodenal ulcer Gastroesophageal reflux disease GI bleed Head injury Headache Health care maintenance History of carotid artery dissection History of kidney stones History of TIA (transient ischemic attack) HLD (hyperlipidemia) Hypothyroidism Lumbago Nonischemic dilated cardiomyopathy Obesity RUTHY (obstructive sleep apnea) Peripheral arterial disease PVD (peripheral vascular disease) Right knee pain Routine health maintenance Situational anxiety TIA (transient ischemic attack) Type 2 diabetes mellitus Home Medications blood sugar diagnostic (FreeStyle Lite Strips) #100 strips 11/20/19 [Rx Last Taken Unknown] blood-glucose meter 02/04/21 [History Last Taken Unknown] lancets 28 gauge 02/04/21 [History Last Taken Unknown] disability placard #1 ea 07/08/21 [Rx Last Taken Unknown] hydrochlorothiazide 12.5 mg tablet 12.5 mg PO DAILY BP #90 tabs 12/07/22 [Rx Last Taken Unknown] levothyroxine 125 mcg tablet 125 mcg PO DAILY #90 tabs 12/07/22 [Rx Last Taken Unknown] lorazepam 1 mg tablet 1 mg PO BID PRN anxiety #4 tabs 04/15/23 [Rx Last Taken Unknown] metformin 500 mg tablet,extended release 24 hr 500 mg PO BID 05/26/23 [History Last Taken Unknown] lisinopril 10 mg tablet 10 mg PO DAILY #90 tabs 07/18/23 [Rx Last Taken Unknown] atorvastatin 40 mg tablet See Rx Instructions .Route .COMPLEX #90 tabs 07/20/23 [Rx Last Taken Unknown] carvedilol 12.5 mg tablet See Rx Instructions .Route .COMPLEX #180 tabs 07/20/23 [Rx Last Taken Unknown] clopidogrel 75 mg tablet See Rx Instructions .Route .COMPLEX #90 tabs 07/20/23 [Rx Last Taken Unknown] spironolactone 25 mg tablet See Rx Instructions .Route .COMPLEX #90 tabs 07/20/23 [Rx Last Taken Unknown] tamsulosin 0.4 mg capsule See Rx Instructions .Route .COMPLEX #90 caps 07/20/23 [Rx Last Taken Unknown] pantoprazole 40 mg tablet,delayed release See Rx Instructions .Route .COMPLEX #90 tabs 08/26/23 [Rx Last Taken Unknown] Allergy/AdvReac Type Severity Reaction Status Date / Time Penicillins Allergy Hives Verified 09/07/23 14:31 tetracycline Allergy Hives Verified 09/07/23 14:31 losartan AdvReac Severe lightheaded Verified 09/07/23 14:31 ness Family History Father Cancer lung Myocardial infarction Mother Cancer liver Diabetes Surgical History (Updated 09/07/23 @ 15:[address] Vishal Jerez DO) History of left knee surgery Hx of arthroscopy of right knee S/P insertion of iliac artery stent Social History Smoking Status: Former smoker Tobacco: How many years used: 40 how long ago did patient quit smokin alcohol intake: current alcohol intake frequency: a few times a month substance use type: does not use caffeine: Yes Type: coffee Number of servings: 2 what type of physical activity do you participate in: none ROS ROS ED Constitutional Constitutional ED: Denies chills or fever(s) Eyes Eyes: Denies blurry vision or change in vision ENT ENT ED: Denies rhinorrhea or sore throat Cardiovascular Cardiovascular: Denies chest pain or palpitations Respiratory/Chest Respiratory/Chest: Denies cough or dyspnea Gastrointestinal Gastrointestinal: Denies nausea or vomiting Genitourinary Genitourinary ED: Reports hematuria; Denies dysuria Musculoskeletal Musculoskeletal: Denies back pain or neck pain Integumentary Denies abscess or rash Neurologic Neurologic: Denies headache(s) or weakness Allergic/Immunologic Allergic/Immunologic ED: Denies mouth swelling or urticaria EXAM Physical Exam Const Vital Signs: 09/07/23 14:29 09/07/23 17:19 Temperature 97.8 F Temperature Source Temporal Pulse Rate 102 H 84 Respiratory Rate 16 16 Blood Pressure 121/87 H 129/69 H Blood Pressure Mean 98 89 Pulse Ox 96 94 Oxygen Delivery Method Room Air Room Air Positive well nourished, well developed and obese General Appearance ED: well developed and NAD Nutritional Appearance: obese HEENT Reports moist mucous membranes Neck supple and no JVD Chest Wall inspection of chest normal and palpation of chest normal Resp normal respiratory effort and clear to auscultation bilaterally Cardio regular rate and regular rhythm GI non-tender and non-distended Palpation: soft Back/Spine no CVA tenderness Neuro oriented x3, CN's II-XII intact bilaterally and no sensory deficits noted Sensorium / Orientation: alert Motor Exam: strength 5/5 throughout Psych mental status grossly normal Skin skin turgor normal MDM MDM MDM Narrative Medical decision making narrative: Differential diagnosis includes renal cancer, ureteral calculus, urinary tract infection, and coagulopathy. CBC will be obtained to assess for leukocytosis and anemia. Basic metabolic profile will be obtained to assess for electrolyte abnormality and renal function. Urinalysis will be obtained to assess for urinary tract infection. PT with INR and PTT will be obtained to assess for coagulopathy. CT scan of the abdomen pelvis will be obtained to assess for renal mass and obstruction. Lab Data Attestation: I reviewed the patient's lab results. Lab results narrative: CBC was reviewed and was within normal limits. Basic metabolic profile was reviewed. BUN was slightly elevated at 25. Glucose was slightly elevated at 130. The remainder is within normal limits. PT with INR and PTT were reviewed and were within normal limits. Urinalysis was reviewed. Occult blood was 10. There is 0 red blood cells seen. There is no evidence of urinary tract infection. Labs: Laboratory Results - last 24 hr 09/07/23 15:45 WBC 8.6 RBC 4.95 Hgb 15.1 Hct 45.8 MCV 92.5 MCH 30.5 MCHC 33.0 RDW Std Deviation 45.5 H RDW Coeff of [place] 13.4 Plt Count 229 MPV 10.4 Immature Gran % (Auto) 0.800 Neut % (Auto) 64.0 Lymph % (Auto) 20.6 [place] % (Auto) 9.8 Eos % (Auto) 4.0 Baso % (Auto) 0.8 Absolute Neuts (auto) 5.5 Absolute Lymphs (auto) 1.76 Nucleated RBC % 0 PT 13.3 INR 1.0 APTT 29.6 Sodium 138 Potassium 4.0 Chloride 107 Carbon Dioxide 27.0 Anion Gap 4 L BUN 25 H Creatinine 1.25 Estim Creat Clear Calc 54.20 Est GFR (MDRD) Af Amer 73 Est GFR (MDRD) Non-Af 60 BUN/Creatinine Ratio 20.0 Glucose 130 H Calcium 8.6 Urine Color Yellow Urine Clarity Clear Urine pH 6.0 Ur Specific [place] 1.020 Urine Protein Negative Urine Glucose (UA) Normal Urine Ketones Negative Urine Occult Blood 10 H Urine Nitrite Negative Urine Bilirubin Negative Urine Urobilinogen Normal Ur Leukocyte Esterase 25 H Urine RBC 0 SEEN Urine WBC 0-5 SEEN Ur Squamous Epith Cells 0-5 SEEN Urine Bacteria 0 SEEN Urine Mucus 0 SEEN Radiography Diagnostic Testing: Clinical Impression(s) from Imaging Studies Abdomen/Pelvis CT 09/07/23 15:18 IMPRESSION: No acute abnormalities in the abdomen or pelvis. Specifically, no findings to explain hematuria. Electronically Signed: Geo Gill MD at 17:06 EST , CT scan of the abdomen and pelvis was obtained. There is no free air or free fluid. There is no ureteral calculus. There is no acute abnormality noted. This was interpreted by the radiologist and was also independently reviewed by myself. Treatment and Re-Evaluation :: Patient is feeling better. Patient was advised of his findings. Patient was instructed to drink plenty of fluids. Patient was instructed to follow-up with his primary care physician in 5 to 7 days. Patient understood and was agreeable with the plan. All questions were answered. Discharge Plan Triage Chief Complaint: Complaint ED Provider: Vishal Jerez Dx/Rx/DC Orders Clinical Impression: Hematuria of unknown etiology, BPH (benign prostatic hyperplasia), Obesity Instructions: ED Hematuria Prescriptions: No Action metformin 500 mg tablet extended release 24 hr 500 mg PO BID Patient Comments: TAKE 1 TABLET BY MOUTH EVERY DAY WITH BREAKFAST lorazepam 1 mg tablet 1 mg PO BID PRN (Reason: anxiety) Qty: 4 0RF (DME) blood-glucose meter 1 EACH kit 0 packet .Route .MEDSUPPLY Rx Instructions: Check twice daily (DME) lancets 1 EACH misc 0 pkg .Route .MEDSUPPLY Rx Instructions: Check blood glucose twice daily for type 2 DM E11.69 (DME) blood sugar diagnostic [FreeStyle Lite Strips] Strip See Rx Instructions .ROUTE .COMPLEX Qty: 100 3RF Dose Instruction: CHECK BLOOD GLUCOSE DAILY FOR TYPE 2 DM E11.9 Rx Instructions: CHECK BLOOD GLUCOSE DAILY FOR TYPE 2 DM E11.9 (DME) disability placard See Rx Instructions .ROUTE .MEDSUPPLY Qty: 1 0RF Rx Instructions: As directed, Length of time: 5 years hydrochlorothiazide 12.5 mg tablet 12.5 mg PO DAILY Qty: 90 2RF levothyroxine 125 mcg tablet 125 mcg PO DAILY Qty: 90 1RF lisinopril 10 mg tablet 10 mg PO DAILY Qty: 90 1RF spironolactone 25 mg tablet See Rx Instructions .ROUTE .COMPLEX Qty: 90 1RF Dose Instruction: TAKE 1 TABLET BY MOUTH EVERY DAY FOR WATER Rx Instructions: TAKE 1 TABLET BY MOUTH EVERY DAY FOR WATER carvedilol 12.5 mg tablet See Rx Instructions .ROUTE .COMPLEX Qty: 180 3RF Dose Instruction: TAKE 1 TABLET BY MOUTH TWICE A DAY FOR HEART Rx Instructions: TAKE 1 TABLET BY MOUTH TWICE A DAY FOR HEART clopidogrel 75 mg tablet See Rx Instructions .ROUTE .COMPLEX Qty: 90 3RF Dose Instruction: TAKE 1 TABLET BY MOUTH EVERY DAY Rx Instructions: TAKE 1 TABLET BY MOUTH EVERY DAY tamsulosin 0.4 mg capsule See Rx Instructions .ROUTE .COMPLEX Qty: 90 3RF Dose Instruction: TAKE 1 CAPSULE BY MOUTH EVERY DAY Rx Instructions: TAKE 1 CAPSULE BY MOUTH EVERY DAY atorvastatin 40 mg tablet See Rx Instructions .ROUTE .COMPLEX Qty: 90 3RF Dose Instruction: TAKE 1 TABLET AT BEDTIME FOR CHOLESTEROL Rx Instructions: TAKE 1 TABLET AT BEDTIME FOR CHOLESTEROL pantoprazole 40 mg tablet,delayed release (DR/EC) See Rx Instructions .ROUTE .COMPLEX Qty: 90 2RF Dose Instruction: TAKE 1 TABLET BY MOUTH EVERY DAY Rx Instructions: TAKE 1 TABLET BY MOUTH EVERY DAY Primary Care Provider: Suki Brewer Referrals: Suki Brewer MD [Primary Care Provider] - 5-7 Days Disposition Disposition: Home, Self Care
[2023-09-07 15:56] LABS: Bacteria 0 SEEN /hpf (None Seen); Mucous, Urine 0 SEEN /hpf (<or=2+)
[2023-09-07 15:58] LABS: Absolute Lymphocyte Count 1.76 X10^3/uL (0.83-4.51); Absolute Neutrophil Count 5.5 X10^3/uL (2.0-7.7); Basophil# 0.07 X10^3/uL; Basophil% 0.8 % (0-1); Eosinophil# 0.34 X10^3/uL; Hematocrit 45.8 % (40-54); Hemoglobin 15.1 g/dL (13.0-16.5); Lymphocyte # 1.76 X10^3/ul (0.83-4.51); Lymphocyte % 20.6 % (19-41); Mean Corpuscular Hgb 30.5 pg (27.0-32.0); Mean Corpuscular Volume 92.5 fL (80-94); Mean Platelet Vol. 10.4 fl (6.2-12.0); Monocyte# 0.84 X10^3/uL; Monocyte% 9.8 % (0-10); NRBC Flagged by Analyzer 0 % (0-5); Neutrophil # 5.47 X10^3/uL (2.7-7.7); Platelet Count 229 K/mm3 (150-450); RBC Distribution Width CV 13.4 % (11.6-14.6); RBC Distribution Width SD 45.5 fl (35.1-43.9); Red Blood Count 4.95 M/mm3 (4.6-6.2); White Blood Count 8.6 K/mm3 (4.4-11.0)
[2023-09-07 16:03] LABS: Color, Urine Yellow (Yellow); Glucose, Dipstick Normal (Normal); Ketone-Dipstick Negative (Negative); Leukocyte Esterase-Dipstick 25 /ul (Negative); Nitrite-Dipstick Negative (Negative); Occult Blood-Urine 10 /ul (Negative); Protein-Dipstick Negative (Negative); Urine Bilirubin Dipstick Negative (Negative); Urine Clarity Clear (Clear); Urine Urobilinogen Normal (Normal)
[2023-09-07 16:11] LABS: Anion Gap 4 (5-15); BUN 25 mg/dL (7-18); Calcium,Total 8.6 mg/dL (8.5-10.1); Chloride 107 mmol/L (98-107); Creatinine, Serum 1.25 mg/dL (0.70-1.30); EST Glomerular Filtration Rate 60 mL/min (>60); Est Glom Filt Rate - Afr Amer 73 mL/min (>60); Glucose 130 mg/dL (74-106); Red Blood Cells-Urine 0 SEEN /hpf (0-5); Sodium Level 138 mmol/L (136-145); Squamous Epithelial Cells - UA 0-5 SEEN /hpf (0-5); White Blood Cells 0-5 SEEN /hpf (0-5)
[2023-09-07 16:12] LABS: Partial Thromboplast Time 29.6 Seconds (24.1-36.2); Prothrombin Time (Protime)PT. 13.3 SECONDS (11.7-14.9)
[2023-09-07 17:19] VITALS: BP 129/69; PULSE 84; RESP 16; O2SAT 94
== END 2023-09-07 17:54 | disposition home or self-care (01) ==
PROVIDERS: Emergency Provider Emergency Medicine; PCP Internal Medicine; Visit Provider Emergency Medicine
DX: R31.9 Hematuria, unspecified (principal); I42.0 Dilated cardiomyopathy; I50.22 Chronic systolic (congestive) heart failure; E11.9 Type 2 diabetes mellitus without complications; N40.0 Benign prostatic hyperplasia without lower urinary tract symptoms; E66.9 Obesity, unspecified; I25.10 Atherosclerotic heart disease of native coronary artery without angina pectoris; G47.33 Obstructive sleep apnea (adult) (pediatric); Z86.73 Personal history of transient ischemic attack (TIA), and cerebral infarction without residual deficits; Z87.891 Personal history of nicotine dependence
CPT/HCPCS: 74176; 80048; 81001; 85025; 85610; 85730; 99283; A4216

== ENCOUNTER → 2023-11-22 | Outpatient (CLI) | payer MEDICARE, SELFPAY ==
--- OUTSIDE RECORDS SUMMARY | 2023-11-22 11:42 | XMS RPT_ITS | CCD ---
Author Name Unknown Address [address] [place] [address] Organization [facility] Care Team Providers Care [employer] Name Role Phone Oseas Wade Unavailable Suki Brewer MD Primary Care Provider [phone] SUKI BREWER MD Primary Care Physician [phone] OLEGHE, EFEWONGBE B Primary Care Unavailable SANTA STEPHEN Attending Unavailable OLEGHE, EFEWONGBE B Primary Care Unavailable ANDRE STEPHENANY Referring Unavailable OLEGHE, EFEWONGBE B Primary Care Unavailable SANTA STEPHEN Attending Unavailable OLEGHE, EFEWONGBE B Primary Care Unavailable SANTA STEPHEN Referring Unavailable OLEGHE, EFEWONGBE B Primary Care Unavailable ANDRE STEPEHNANY Attending Unavailable OLEGHE, EFEWONGBE B Primary Care Unavailable ARGENTINAIESylvia SANTA Referring Unavailable OLEGHE, EFEWONGBE B Primary Care Unavailable OLEGHE, EFEWONGBE B Referring Unavailable SANTA STEPHEN Attending Unavailable ACE BAZZI Referring Unavailab le OLEGHE, EFEWONGBE B Primary Care Unavailable OLEGHE, EFEWONGBE B Primary Care Unavailable ARGENTINAIESylvia SANTA Referring Unavailable MICHELE LARSON Attending Unavailable OLEGHE, EFEWONGBE B Primary Care Unavailable MAURICIO JESUS Referring Unavailable OLEGHE, EFEWONGBE B Primary Care Unavailable QUYNH CANTOR Attending Unavailable OLEGHE, EFEWONGBE B Referring Unavailable OLEGHE, EFEWONGBE B Primary Care Unavailable Allergies Allergy Classification Reported Allergen(s) Allergy Type Date of Onset Reaction(s) Facility (14 sources) Losartan; Translations: [LOSARTAN] Drug Allergy 8 Other: See Comments [facility] (7 sources) Penicillins; Translations: [PENICILLINS] Propensity to adverse reactions 4 [facility] (14 sources) Tetracycline; Translations: [TETRACYCLINE] Drug Allergy 9 GI Upset [facility] (7 sources) Penicillins Propensity to adverse reactions 4 [facility] Medications Completed/Discontinued Medications Medication Drug Class(es) Dates Sig (Normalized) Sig (Original) atorvastatin 40 mg oral tablet (12 sources) HMG-CoA Reductase Inhibitor Start: 06-06-2018 take 1 tablet by mouth once daily atorvastatin (LIPITOR) 40 mg tablet Indications: PVD (peripheral vascular disease) (HCC) , Pure hypercholesterolemia Take 1 tablet by mouth once daily. 90 tablet 3 06/06/2018 Active Problems Active Problems Problem Classification Problem Date Documented Da te Episodic/Chronic Complications of surgical procedures or medical care (17 sources) Postablative hypothyroidism; Translations: [Postprocedural hypothyroidism] Onset: 11-17-2018 11-17-2018 Chronic Coronary atherosclerosis and other heart disease (12 sources) Coronary atherosclerosis; Translations: [Atherosclerotic heart disease of [place] coronary artery without angina pectoris] Onset: 06-03-2011 10-19-2021 Chronic Diabetes mellitus with complications (15 sources) Type 2 diabetes mellitus with peripheral angiopathy; Translations: [Type 2 diabetes mellitus with diabetic peripheral angiopathy without gangrene] Onset: 12-17-2021 12-17-2021 Chronic Diabetes mellitus without complication (12 sources) Type 2 diabetes mellitus without complication; Translations: [Type 2 diabetes mellitus without complications] Onset: 02-15-2019 02-15-2019 Chronic Disorders of lipid metabolism (16 sources) Pure hypercholesterolemi a; Translations: [Pure hypercholesterolemi a, unspecified] Onset: 10-19-2021 Chronic Essential hypertension (17 sources) Benign essential hypertension; Translations: [Essential (primary) hypertension] Onset: 07-25-2015 07-25-2015 Chronic Hyperplasia of prostate (13 sources) Benign prostatic hyperplasia; Translations: [Benign prostatic hyperplasia without lower urinary tract symptoms] Onset: 07-30-2014 07-30-2014 Chronic Occlusion or stenosis of precerebral arteries (15 sources) Carotid artery occlusion; Translations: [Occlusion and stenosis of unspecified carotid artery] Onset: 06-03-2011 Chronic Other circulatory disease (12 sources) Disorder of carotid artery; Translations: [Disorder of arteries and arterioles, unspecified] Onset: 06-05-2015 06-05-2015 Chronic Other nutritional; endocrine; and metabolic disorders (6 sources) Severe obesity; Translations: [Morbid (severe) obesity due to excess calories] Onset: 12-17-2021 12-17-2021 Chronic Other nutritional; endocrine; and metabolic disorders (3 sources) Obesity; Translations: [Obesity, unspecified] Onset: 03-26-2022 Chronic Other nutritional; endocrine; and metabolic disorders (6 sources) Obese class II; Translations: [Obesity, unspecified] Onset: 01-06-2023 Chronic Other nutritional; endocrine; and metabolic disorders (1 source) Obesity, unspecified; Translations: [Obesity, Class II, BMI 35-39.9] Onset: 01-06-2023 Chronic Other screening for suspected conditions (not mental disorders or infectious disease) (1 source) Patient encounter status; Translations: [Encounter for screening for malignant neoplasm of prostate] Episodic Katia-; endo-; and myocarditis; cardiomyopathy (except that caused by tuberculosis or sexually transmitted disease) (12 sources) Nonischemic congestive cardiomyopathy; Translations: [Dilated cardiomyopathy] Onset: 07-07-2011 10-19-2021 Chronic Peripheral and visceral atherosclerosis (18 sources) Peripheral vascular disease; Translations: [Peripheral vascular disease, unspecified] Onset: 06-03-2011 06-03-2011 Chronic Residual codes; unclassified (12 sources) Obstructive sleep apnea syndrome; Translations: [Obstructive sleep apnea (adult) (pediatric)] Onset: 12-30-2008 03-21-2013 Chronic Transient cerebral ischemia (1 source) Transient cerebral ischemic attack, unspecified; Translations: [TIA (transient ischemic attack)] Onset: 11-10-2023 Chronic Past or Other Problems Problem Classification Problem Date Documented Da te Episodic/Chronic Esophageal disorders (12 sources) Esophagitis; Translations: [Esophagitis, unspecified] Onset: 09-22-2012 09-22-2012 Episodic Genitourinary symptoms and ill-defined conditions (14 sources) Microscopic hematuria; Translations: [Other microscopic hematuria] Onset: 08-15-2014 Episodic Other and unspecified benign neoplasm (12 sources) Benign neoplasm of colon; Translations: [Benign neoplasm of colon, unspecified] Onset: 09-29-2009 09-29-2009 Episodic Other diseases of kidney and ureters (12 sources) Complex renal cyst; Translations: [Cyst of kidney, acquired] Onset: 09-04-2014 09-04-2014 Episodic Screening and history of mental health and substance abuse codes (12 sources) Tobacco use and exposure - finding; Translations: [Personal history of nicotine dependence] Onset: 08-15-2014 08-15-2014 Episodic Results Test Name Value Interpretation Reference Range Facil ity Vital Signs Date Time Vital Sign Value Performing Clinician Sparkle marx 04-13-2023 07:54-0400 Body height 175.3 cm Santa Kupiec TACK CUTTER.DOCTOR OF MEDICINE Work Phone: [facility] 04-13-2023 07:54-0400 Body weight 111.58 kg Santa Kupiec TACK CUTTER.DOCTOR OF MEDICINE Work Phone: [facility] 04-13-2023 07:54-0400 Diastolic blood pressure 79 mm[Hg] Santa Kupiec TACK CUTTER.DOCTOR OF MEDICINE Work Phone: [facility] 04-13-2023 07:54-0400 Heart rate 75 /min Santa Kupiec TACK CUTTER.DOCTOR OF MEDICINE Work Phone: [facility] 04-13-2023 07:54-0400 SaO2% (BldA) [Mass fraction] 96 % Santa Kupiec TACK CUTTER.DOCTOR OF MEDICINE Work Phone: [facility] 04-13-2023 07:54-0400 Systolic blood pressure 126 mm[Hg] Santa Kupiec TACK CUTTER.DOCTOR OF MEDICINE Work Phone: [facility] 01-06-2023 09:44-0400 Body height 176 cm Santa Kupiec TACK CUTTER.DOCTOR OF MEDICINE Work Phone: [facility] 01-06-2023 09:44-0400 Body weight 111.22 kg Santa Kupiec TACK CUTTER.DOCTOR OF MEDICINE Work Phone: [facility] 01-06-2023 09:44-0400 Diastolic blood pressure 63 mm[Hg] Santa Kupiec TACK CUTTER.DOCTOR OF MEDICINE Work Phone: [facility] 01-06-2023 09:44-0400 Heart rate 74 /min Santa Kupiec TACK CUTTER.DOCTOR OF MEDICINE Work Phone: [facility] 01-06-2023 09:44-0400 [facility]piratory [facility] 16 [facility] Work Phone: [facility] 01-06-2023 09:44-0400 SaO2% (BldA) [Mass fraction] 97 % [facility] MEDICINE Work Phone: [facility] 01-06-2023 09:44-0400 Systolic blood pressure 111 mm[Hg] [facility] OF MEDICINE Work Phone: [facility] 03-26-2022 13:17-0400 Body weight 108.86 [facility] MEDICINE Work Phone: [facility] 03-26-2022 13:17-0400 Diastolic blood pressure 76 mm[Hg] [facility] OF MEDICINE Work Phone: [facility] 03-26-2022 13:17-0400 Heart rate 83 /min [facility] MEDICINE Work Phone: [facility] 03-26-2022 13:17-0400 SaO2% (BldA) [Mass fraction] 98 % [facility].DOCTOR OF MEDICINE Work Phone: [facility] 03-26-2022 13:17-0400 Systolic blood pressure 119 mm[Hg] [facility] MEDICINE Work Phone: [facility] 02-11-2022 11:06-0400 Body height 176.5 cm Charan Ma MD Work Phone: [facility] 02-11-2022 11:06-0400 Body weight 107.96 kg Charan Ma MD Work Phone: [facility] 02-11-2022 11:06-0400 Diastolic blood pressure 69 mm[Hg] Charan Ma MD Work Phone: [facility] 02-11-2022 11:06-0400 Heart rate 77 /min Charan Ma MD Work Phone: [facility] 02-11-2022 11:06-0400 Respiratory rate 18 /min Charan Ma MD Work Phone: [facility] 02-11-2022 11:06-0400 Systolic blood pressure 132 mm[Hg] Charan Ma MD Work Phone: [facility] 01-29-2022 09:23-0400 Body height 176.5 cm Mauricio Jesus MD Work Phone: [facility] 01-29-2022 09:23-0400 Body weight 104.33 kg Mauricio Jesus MD Work Phone: [facility] 01-29-2022 09:23-0400 Diastolic blood pressure 64 mm[Hg] Mauricio Jesus MD Work Phone: [facility] 01-29-2022 09:23-0400 Heart rate 76 /min Mauricio Jesus MD Work Phone: [facility] 01-29-2022 09:23-0400 Respiratory rate 18 /min Mauricio Jesus MD Work Phone: [facility] 01-29-2022 09:23-0400 Systolic blood pressure 110 mm[Hg] Mauricio Jesus MD Work Phone: [facility] Encounters Encounter Date Encounter Type Care Provider Facility Start: 11-10-2023 End: 11-10-2023 Emergency department patient visit MICHELE LARSON Facility:[facility] Start: 10-26-2023 End: 10-26-2023 ambulatory SUKI BREWER Facility:[facility] Start: 10-19-2023 End: 10-20-2023 ambulatory SUKI BREWER Facility:[facility] Start: 07-14-2023 End: 07-14-2023 ambulatory SUKI BREWER Facility:[facility] Start: 07-12-2023 End: 07-12-2023 Patient encounter procedure ACE BAZZI [facility] Start: 07-12-2023 End: 07-13-2023 ambulatory ACE BAZZI Facility:[facility] Start: 07-12-2023 Encounter for other preprocedural examination SUKI BREWER [facility] Start: 07-12-2023 End: 07-13-2023 ambulatory SUKI IVANDESIRE Facility:[facility] Start: 05-11-2023 Telephone encounter Santa maya TACK CUTTER.DOCTOR OF MEDICINE Work Phone: Endocrinology Procedures Date Procedure Procedure Detail Performing Clinician Start: 02-11-2022 Urnls dip stick/tabl et rgnt auto w/o microscopy Charan Ma MD Work Phone: Start: 01-21-2022 Ct abdomen & pelvis w/o contrst 1/> body re Ancelmo Johansen MD Work Phone: Start: 11-29-2017 Adult depression screening assessment [facility] Start: 11-14-[address] [facility] Plan of Treatment Date Care Activity Detail Author Start: 05-10-2024 Hepatitis C antibody, confirmatory test DILATED RETINAL EXAM [facility] Start: 04-13-2024 BP CONTROLLED (<130/80) BP CONTROLLED (<130/80) [facility] Start: 04-09-2024 Hepatitis B surface antibody level LDL CHOLESTEROL [facility] Start: 02-09-2024 BP CONTROLLED (<130/80) BP CONTROLLED (<130/80) [facility] Start: 01-07-2024 3 comp foot exam completed DIABETIC FOOT EXAM [facility] Start: 01-07-2024 BP CONTROLLED (<130/80) BP CONTROLLED (<130/80) [facility] Start: 01-04-2024 Hepatitis B screening URINE ALBUMIN:CREATININE RATIO [facility] Start: 01-04-2024 Hepatitis B surface antibody level LDL CHOLESTEROL [facility] Start: 10-09-2023 Hemoglobin A1c/Hemoglobin.total in Blood HBA1C [facility] Start: 12-09-2023 BP CONTROLLED (<130/80) BP CONTROLLED (<130/80) [facility] Start: 09-28-2023 Hepatitis B surface antibody level LDL CHOLESTEROL [facility] Start: 07-14-2023 End: 09-13-2023 Comprehensive metabolic 2000 panel - Serum or Plasma COMP METABOLIC PANEL Lab Routine Type 2 diabetes mellitus with diabetic peripheral angiopathy without gangrene, without long-term current use of insulin (HCC) Expected: 07/14/2023 (Approximate), Expires: 09/13/2023 [facility] Work Phone: Immunizations Immunization Date Immunization Notes Care Provider Brandt alcala 09-11-2021 COVID-19 vaccine, booster dose (MODERNA) [facility] Work Phone: 08-21-2021 influenza, high dose seasonal, preservative-free [facility] Work Phone: 08-18-2021 influenza (aIIV4) vaccine, age 65+ yr, quadrivalent, PF (FLUAD QUADRIVALENT) Charan Ma MD Work Phone: [facility] 08-08-2020 influenza, high-dose , quadrivalent vaccine (FLUZONE HIGH DOSE QUADRIVALENT) [facility] 01-19-2017 pneumococcal conjuga te vaccine, 13 valent [facility] 08-07-2015 influenza, seasonal, injectable [facility] 09-28-2014 pneumococcal polysaccharide vaccine, 23 valent [facility] 07-21-2014 influenza, seasonal, injectable [facility] 09-17-2013 influenza virus vacc ine, unspecified formulation [facility] 07-31-2012 influenza virus vacc ine, unspecified formulation [facility] Work Phone: 07-14-2011 influenza virus vacc ine, unspecified formulation [facility] Work Phone: 12-30-2008 tetanus and diphther ia toxoids, adsorbed, preservative free, for adult use (2 Lf of tetanus toxoid and 2 Lf of diphtheria toxoid) [facility] 10-24-1998 tetanus and diphther ia toxoids, not adsorbed, for adult use [facility] Payers Date Payer Category Payer Unknown [id number] 2016 Medicare MEDICARE MEDICAR E A AND B [id number] 2016-Present [phone] [place] [address] Medicare [id number] 2016 Medicare MEDICARE MEDICAR E A AND B [id number] 2016-Present [phone] [place] [address] Medicare [id number] 2016 Medicare [id number] 2016 Medicare [id number] 2016 Unknown [employer] [place] [employer] [place] MEDICARE SUPPLEMENT [id number] 2016-Present [phone] [id number] [place] [address] Indemnity [id number] 2016 Unknown [employer] [employer] MEDICARE SUPPLEMENT [id number] 2016-Present [phone] [address] [address] Indemnity [id number] Social History Date Type Detail Facility Start: 07-05-2011 End: 07-01-2022 Tobacco smoking status NHIS Ex-smoker [facility] End: 02-12-2013 History of tobacco use Current smoker [facility] End: 02-12-2013 History of tobacco use Cigarette Smoker [facility] Start: 07-05-2011 End: 2022 Cigarettes smoked current (pack per day) - Reported 0.5 [facility] Start: 07-05-2011 End: 07-01-2022 Tobacco use and exposure Smokeless tobacco non-user [facility] Start: 12-31-2021 End: 04-13-2023 Alcohol intake Current drinker of alcohol (finding) [facility] Start: 09-10-2010 History SDOH Alcohol Comment occasional 1 beer [facility] Start: 1950 Sex Assigned At Not on file C [facility] Start: 01-11-2022 End: 03-26-2022 Exposure to SARS-CoV-2 (event) Not sure [facility] Start: 2022 End: 04-13-2023 Tobacco use panel [facility] National Score (1-10 0), lower number is lower risk 66 [facility] Tobacco smoking status No Smokin g Status Entered [facility] Sex Assigned At Male [facility] Medical Equipment Procedure Code Equipment Code Equipment Origin al Text Equipment Identifier Dates Start: 06-12-2021 End: 10-26-2022 Clinical Notes 07-14-2012 to 10-26-2023 Telephone Encounter - Donna Henry MA - 05/12/2023 8:47 AM EDTTelephone Encounter - Santa Stephen APRN.CNP - 05/12/2023 7:12 AM EDTSteileana Stephen APRN.CNP - 04/13/2023 8:00 AM EDT Note Date & Type Note Facility 10-26-2023 Note HNO ID: [id number] Author: Santa Stephen APRN.ERIC Service: ? Author Type: Nurse Practitioner Type: Progress Notes Filed: 10/26/2023 8:23 AM Note Text: Reason for Consultation: DM Type 2 Referring Physician: SELF HISTORY OF PRESENT ILLNESS; Mr. Noonan is a 72 year old male presenting for follow regarding DM Type 2. He was initially diagnosed with diabetes in May 2018 . He does have a family history of diabetes mellitus in his Mother. LV 07/14/23 A1C 6.4 on 10/19/23 History of diabetes, Graves disease s/p ablation, hypothyroidism, PVD (stents leg), TIA, CAD, hypertension, hyperlipidemia, obesity, covid 19 Under the care of vascular for PVD and cardiology Had meniscus surgery in fall. States he may have torn it again recently. Will see urology next week for clots he passed in urine. Happened once and none since. He was evaluated in ED and reports initial testing was unrevealing. His current diabetes regimen is: Metformin ER 500 mg daily Regarding symptoms of hyperglycemia, he is not experiencing any symptoms such as polyuria, polydipsia, nocturia or rapid weight loss or blurry vision. Exercise: walking, ADL's Champ is checking his blood glucose 1 times daily at variable times . He did not bring a logbook today for review: Hypoglycemia frequency:rare Hypoglycemia awareness: Yes Hypothyroidism: Hx of Graves disease, s/p DYE. 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 Knee cartilage, torn, right Lumbago 07/25/2007 Morbid obesity ([facility]) 08/15/2014 RUTHY (obstructive sleep apnea), intolerant of CPAP 12/30/2008 Intolerant of CPAP Pure hypercholesterolemia PVD (peripheral vascular disease) ([facility]) 06/03/2011 Snoring Sprain of neck Tobacco use disorder 12/30/2008 Toxic diffuse goiter without mention of thyrotoxic crisis or storm history of DYE treatment Type II or unspecified type diabetes mellitus without mention of complication, not stated as uncontrolled Unspecified essential hypertension Unspecified hypothyroidism Unspecified late effects of cerebrovascular disease Unspecified otitis media Unspecified transient cerebral ischemia 1998, 06/03/2011 PAST SURGICAL HISTORY Procedure Laterality Date ANGIOPLASTY FEMORAL/POP 03/11/2014 Right femoral. ARTERY X-RAYS, HEAD AND NECK 01/1999 Carotid angiogram CATARACT SURGERY, COMPLEX mid late bilateral COLONOSCOPY FLX DX W/COLLJ SPEC WHEN PFRMD 11/14/14 Colonoscopy COLONOSCOPY W/BIOPSY SINGLE/MULTIPLE 11/14/2017 EGD 06/29/2018 ESOPHAGOGASTRODUODENOSCOPY TRANSORAL DIAGNOSTIC 07/14/2012 EGD KNEE ARTHROSCOP MENISCUS REPAIR MED/LAT 04/27/2017 LEFT HEART CATH,PERCUTANEOUS Cardiac cath, L heart PAST SURGICAL HISTORY OF 1951 evacuation of hematoma, PAST SURGICAL HISTORY OF 10/03 stents in both legs FAMILY HISTORY Problem Relation Age of Onset Cancer Mother liver cancer, dec. age 66 Alzheimer's Disease Mother Diabetes Mother Cancer Father lung cancer, dec. age 63 Coronary Artery Disease Father Genitourinary () Father nephrectomy posttrauma Social History Tobacco Use Smoking status: Former Packs/day: 0.50 Years: 25.00 Additional pack years: 0.00 Total pack years: 12.50 Types: Cigarettes Quit date: 02/12/2013 Years since quittin.7 Smokeless tobacco: Never Vaping Use Vaping Use: Never used Substance Use Topics Alcohol use: Yes Comment: occasional 1 beer Drug use: No Current Outpatient Medications Medication Sig Dispense Refill blood sugar diagnostic (FREESTYLE LITE STRIPS) test strip USE ONE STRIP DAILY; E11.52, NIDDM 100 Strip 3 levothyroxine (SYNTHROID) 125 mcg tablet Take 1 tablet by mouth once daily. 90 tablet 3 metFORMIN ER (GLUCOPHAGE XR) 500 mg 24 hr tablet Take 1 tablet by mouth daily with breakfast. 90 tablet 3 lancets (FREESTYLE LANCETS) 28 gauge Use one lancet daily ; E11.51, NIDDM 100 Each 3 lisinopril (ZESTRIL, PRINIVIL) 10 mg tablet One tab daily Blood-Glucose Meter monitoring kit 1 Each as needed. pantoprazole DR (PROTONIX) 40 mg tablet Take 40 mg by mouth once daily. atorvastatin (LIPITOR) 40 mg tablet Take 1 tablet by mouth once daily. 90 tablet 3 carvedilol (COREG) 12.5 mg tablet Take 1 tablet by mouth twice daily with meals. 180 tablet 3 clopidogrel (PLAVIX) 75 mg tablet Take 1 tablet by mouth once daily. 90 tablet 3 spironolactone (ALDACTONE) 25 mg tablet Take 1 tablet by mouth once daily. 90 tablet 3 tamsulosin ER (FLOMAX) 0.4 mg cap TAKE 1 CAPSULE BY MOUTH EVERY EVENING. 90 capsule 3 hydroCHLOROthiazide (HYDRODIURIL, ESIDRIX) 12.5 m (more content not included)... [facility] 07-14-2023 Note HNO ID: [id number] Author: Santa Stephen APRN.ERIC Service: ? Author Type: Nurse Practitioner Type: Progress Notes Filed: 07/14/2023 8:25 AM Note Text: Reason for Consultation: DM Type 2 Referring Physician: SELF HISTORY OF PRESENT ILLNESS; Mr. Noonan is a 72 year old male presenting for follow regarding DM Type 2. He was initially diagnosed with diabetes in May 2018 . He does have a family history of diabetes mellitus in his Mother. LV 04/13/23 A1C 6.4 on 07/12/23 History of diabetes, Graves disease s/p ablation, hypothyroidism, PVD (stents leg), TIA, CAD, hypertension, hyperlipidemia, obesity, covid 19 Under the care of vascular for PVD and cardiology Having meniscus surgery next week. His current diabetes regimen is: Metformin ER 500 mg daily Regarding symptoms of hyperglycemia, he is not experiencing any symptoms such as polyuria, polydipsia, nocturia or rapid weight loss or blurry vision. Exercise: walking, ADL's Champ is checking his blood glucose 1 times daily at variable times . He did bring a logbook today for review: FBS 103, 121, 114, 115 AcL 84, 128, 109, 102, 108 AcS 101, 107, 116, 107, 136 HS 146, 114, 126, 128, 141 Hypoglycemia frequency: denies Hypoglycemia awareness: Yes Overall, the patient has no acute complaints at this time. Hypothyroidism: Hx of Graves disease, s/p DYE. 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 Knee cartilage, torn, right Lumbago 07/25/2007 Morbid obesity ([facility]) 08/15/2014 RUTHY (obstructive sleep apnea), intolerant of CPAP 12/30/2008 Intolerant of CPAP Pure hypercholesterolemia PVD (peripheral vascular disease) ([facility]) 06/03/2011 Snoring Sprain of neck Tobacco use disorder 12/30/2008 Toxic diffuse goiter without mention of thyrotoxic crisis or storm history of DYE treatment Type II or unspecified type diabetes mellitus without mention of complication, not stated as uncontrolled Unspecified essential hypertension Unspecified hypothyroidism Unspecified late effects of cerebrovascular disease Unspecified otitis media Unspecified transient cerebral ischemia 1998, 06/03/2011 PAST SURGICAL HISTORY Procedure Laterality Date ANGIOPLASTY FEMORAL/POP 03/11/2014 Right femoral. ARTERY X-RAYS, HEAD AND NECK 01/1999 Carotid angiogram CATARACT SURGERY, COMPLEX mid late bilateral COLONOSCOPY FLX DX W/COLLJ SPEC WHEN PFRMD 11/14/14 Colonoscopy COLONOSCOPY W/BIOPSY SINGLE/MULTIPLE 11/14/2017 EGD 06/29/2018 ESOPHAGOGASTRODUODENOSCOPY TRANSORAL DIAGNOSTIC 07/14/2012 EGD KNEE ARTHROSCOP MENISCUS REPAIR MED/LAT 04/27/2017 LEFT HEART CATH,PERCUTANEOUS Cardiac cath, L heart PAST SURGICAL HISTORY OF 1951 evacuation of hematoma, PAST SURGICAL HISTORY OF 10/03 stents in both legs FAMILY HISTORY Problem Relation Age of Onset Cancer Mother liver cancer, dec. age 66 Alzheimer's Disease Mother Diabetes Mother Cancer Father lung cancer, dec. age 63 Coronary Artery Disease Father Genitourinary () Father nephrectomy posttrauma Social History Tobacco Use Smoking status: Former Packs/day: 0.50 Years: 25.00 Additional pack years: 0.00 Total pack years: 12.50 Types: Cigarettes Quit date: 02/12/2013 Years since quittin.4 Smokeless tobacco: Never Vaping Use Vaping Use: Never used Substance Use Topics Alcohol use: Yes Comment: occasional 1 beer Drug use: No Current Outpatient Medications Medication Sig Dispense Refill levothyroxine (SYNTHROID) 125 mcg tablet Take 1 tablet by mouth once daily. 90 tablet 3 metFORMIN ER (GLUCOPHAGE XR) 500 mg 24 hr tablet Take 1 tablet by mouth daily with breakfast. 90 tablet 3 lancets (FREESTYLE LANCETS) 28 gauge Use one lancet daily ; E11.51, NIDDM 100 Each 3 blood sugar diagnostic (FREESTYLE LITE STRIPS) test strip Use one strip daily; E11.9, NIDDM 100 Strip 3 lisinopril (ZESTRIL, PRINIVIL) 10 mg tablet One tab daily Blood-Glucose Meter monitoring kit 1 Each as needed. pantoprazole DR (PROTONIX) 40 mg tablet Take 40 mg by mouth once daily. atorvastatin (LIPITOR) 40 mg tablet Take 1 tablet by mouth once daily. 90 tablet 3 carvedilol (COREG) 12.5 mg tablet Take 1 tablet by mouth twice daily with meals. 180 tablet 3 clopidogrel (PLAVIX) 75 mg tablet Take 1 tablet by mouth once daily. 90 tablet 3 spironolactone (ALDACTONE) 25 mg tablet Take 1 tablet by mouth once daily. 90 tablet 3 tamsulosin ER (FLOMAX) 0.4 mg cap TAKE 1 CAPSULE BY MOUTH EVERY EVENING. 90 capsule 3 hydroCHLOROthiazide (HYDRODIURIL, ESIDRIX) 12.5 mg tablet Take 1 tablet by mo (more content not included)... [facility] 05-12-2023 Miscellaneous Notes Sent to scanning. Encounter Closed. Reviewed. No retinopathy Received Eye Exam Report from [facility] HM Updated. Placed in provider's inbox for review. Route to [facility] for scanning. documented in this encounter [facility] 04-13-2023 Note HNO ID: [id number] Author: Santa Stephen APRN.ERIC Service: ? Author Type: Nurse Practitioner Type: Progress Notes Filed: 04/13/2023 8:23 AM Note Text: Reason for Consultation: DM Type 2 Referring Physician: SELF HISTORY OF PRESENT ILLNESS; Mr. Noonan is a 72 year old male presenting for follow regarding DM Type 2. He was initially diagnosed with diabetes in May 2018 . He does have a family history of diabetes mellitus in his Mother. LV 01/06/23 A1C 6.5 on 04/09/23 History in addition to diabetes includes:Graves disease with ablation, hypothyroidism, PVD (stents leg), TIA, CAD, hypertension, hyperlipidemia, obesity, covid 19 Under the care of vascular for PVD and cardiology Having an eye exam next month. He was recently on vacation for 2 wks. States he was not following a DM diet but is now back on track. His current diabetes regimen is: Metformin ER 500 mg daily Regarding symptoms of hyperglycemia, he is not experiencing any symptoms such as polyuria, polydipsia, nocturia or rapid weight loss or blurry vision. Exercise: walking, ADL's Champ is checking his blood glucose 1 times daily at variable times . He did bring a logbook today for review: FBS 96, 116, 119, 93, 119 AcL 122, 128, 90, 117, 93 AcS 128, 95, 121, 87 HS 109, 141, 134, 138 Hypoglycemia frequency: denies Hypoglycemia awareness: Yes Overall, the patient has no acute complaints at this time. Hypothyroidism: Hx of Graves disease, s/p DYE. Taking levothyroxine 125 mcg daily TSH 0.479 on 04/09/23 PAST MEDICAL HISTORY Diagnosis Date Benign neoplasm of colon Tubular adenoma 2014 colonoscopy Brain TIA 06/02/2011 CAD (coronary artery disease), [place] coronary artery 06/03/2011 Cardiomyopathy, dilated, nonischemic (HCC) 07/07/2011 Congestive heart failure ([facility]) 06/03/2011 Diabetes ([facility]) Dissection of carotid artery ([facility]) 06/10/2005 Knee cartilage, torn, right Lumbago 07/25/2007 Morbid obesity ([facility]) 08/15/2014 RUTHY (obstructive sleep apnea), intolerant of CPAP 12/30/2008 Intolerant of CPAP Pure hypercholesterolemia PVD (peripheral vascular disease) ([facility]) 06/03/2011 Snoring Sprain of neck Tobacco use disorder 12/30/2008 Toxic diffuse goiter without mention of thyrotoxic crisis or storm history of DYE treatment Type II or unspecified type diabetes mellitus without mention of complication, not stated as uncontrolled Unspecified essential hypertension Unspecified hypothyroidism Unspecified late effects of cerebrovascular disease Unspecified otitis media Unspecified transient cerebral ischemia 1998, 06/03/2011 PAST SURGICAL HISTORY Procedure Laterality Date ANGIOPLASTY FEMORAL/POP 03/11/2014 Right femoral. ARTERY X-RAYS, HEAD AND NECK 01/1999 Carotid angiogram CATARACT SURGERY, COMPLEX mid late bilateral COLONOSCOPY FLX DX W/COLLJ SPEC WHEN PFRMD 11/14/14 Colonoscopy COLONOSCOPY W/BIOPSY SINGLE/MULTIPLE 11/14/2017 EGD 06/29/2018 ESOPHAGOGASTRODUODENOSCOPY TRANSORAL DIAGNOSTIC 07/14/2012 EGD KNEE ARTHROSCOP MENISCUS REPAIR MED/LAT 04/27/2017 LEFT HEART CATH,PERCUTANEOUS Cardiac cath, L heart PAST SURGICAL HISTORY OF 1951 evacuation of hematoma, PAST SURGICAL HISTORY OF 10/03 stents in both legs FAMILY HISTORY Problem Relation Age of Onset Cancer Mother liver cancer, dec. age 66 Alzheimer's Disease Mother Diabetes Mother Cancer Father lung cancer, dec. age 63 Coronary Artery Disease Father Genitourinary () Father nephrectomy posttrauma Social History Tobacco Use Smoking status: Former Packs/day: 0.50 Years: 25.00 Pack years: 12.50 Types: Cigarettes Quit date: 02/12/2013 Years since quittin.1 Smokeless tobacco: Never Vaping Use Vaping Use: Never used Substance Use Topics Alcohol use: Yes Comment: occasional 1 beer Drug use: No Current Outpatient Medications Medication Sig Dispense Refill levothyroxine (SYNTHROID) 125 mcg tablet Take 1 tablet by mouth once daily. 90 tablet 3 metFORMIN ER (GLUCOPHAGE XR) 500 mg 24 hr tablet Take 1 tablet by mouth daily with breakfast. 90 tablet 3 lancets (FREESTYLE LANCETS) 28 gauge Use one lancet daily ; E11.51, NIDDM 100 Each 3 blood sugar diagnostic (FREESTYLE LITE STRIPS) test strip Use one strip daily; E11.9, NIDDM 100 Strip 3 lisinopril (ZESTRIL, PRINIVIL) 10 mg tablet One tab daily Blood-Glucose Meter monitoring kit 1 Each as needed. pantoprazole DR (PROTONIX) 40 mg tablet Take 40 mg by mouth once daily. atorvastatin (LIPITOR) 40 mg tablet Take 1 tablet by mouth once daily. 90 tablet 3 carvedilol (COREG) 12.5 mg tablet Take 1 tablet by mouth twice daily with meals. 180 tablet 3 clopidogrel (PLAVIX) 75 mg tablet Take 1 tablet by mouth once daily. 90 tablet 3 spironolactone (ALDACTONE) 25 mg tablet Take 1 tablet by mouth once daily. 90 tablet 3 tamsulosin ER (FLOMAX) 0.4 mg cap TAKE 1 CAPSULE BY MOUTH EVERY EVENING. 90 capsule 3 (more content not included)... [facility] 04-13-2023 History of Present illness Narrative Reason for Consultation: DM Type 2 Referring Physician: SELF HISTORY OF PRESENT ILLNESS; Mr. Noonan is a 72 year old male presenting for follow regarding DM Type 2. He was initially diagnosed with diabetes in May 2018 . He does have a family history of diabetes mellitus in his Mother. LV 01/06/23 A1C 6.5 on 04/09/23 History in addition to diabetes includes:Graves disease with ablation, hypothyroidism, PVD (stents leg), TIA, CAD, hypertension, hyperlipidemia, obesity, covid 19 Under the care of vascular for PVD and cardiology Having an eye exam next month. He was recently on vacation for 2 wks. States he was not following a DM diet but is now back on track. His current diabetes regimen is: Metformin ER 500 mg daily Regarding symptoms of hyperglycemia, he is not experiencing any symptoms such as polyuria, polydipsia, nocturia or rapid weight loss or blurry vision. Exercise: walking, ADL's Champ is checking his blood glucose 1 times daily at variable times . He did bring a logbook today for review: FBS 96, 116, 119, 93, 119 AcL 122, 128, 90, 117, 93 AcS 128, 95, 121, 87 HS 109, 141, 134, 138 Hypoglycemia frequency: denies Hypoglycemia awareness: Yes Overall, the patient has no acute complaints at this time. Hypothyroidism: Hx of Graves disease, s/p DYE. Taking levothyroxine 125 mcg daily TSH 0.479 on 04/09/23 PAST MEDICAL HISTORY Diagnosis Date Benign neoplasm of colon Tubular adenoma 2014 colonoscopy Brain TIA 06/02/2011 CAD (coronary artery disease), [place] coronary artery 06/03/2011 Cardiomyopathy, dilated, nonischemic (HCC) 07/07/2011 Congestive heart failure (HCC) 06/03/2011 Diabetes ([facility]) Dissection of carotid artery ([facility]) 06/10/2005 Knee cartilage, torn, right Lumbago 07/25/2007 Morbid obesity ([facility]) 08/15/2014 RUTHY (obstructive sleep apnea), intolerant of CPAP 12/30/2008 Intolerant of CPAP Pure hypercholesterolemia PVD (peripheral vascular disease) ([facility]) 06/03/2011 Snoring Sprain of neck Tobacco use disorder 12/30/2008 Toxic diffuse goiter without mention of thyrotoxic crisis or storm history of DYE treatment Type II or unspecified type diabetes mellitus without mention of complication, not stated as uncontrolled Unspecified essential hypertension Unspecified hypothyroidism Unspecified late effects of cerebrovascular disease Unspecified otitis media Unspecified transient cerebral ischemia 1998, 06/03/2011 PAST SURGICAL HISTORY Procedure Laterality Date ANGIOPLASTY FEMORAL/POP 03/11/2014 Right femoral. ARTERY X-RAYS, HEAD & NECK 01/1999 Carotid angiogram CATARACT SURGERY, COMPLEX mid late bilateral COLONOSCOPY FLX DX W/COLLJ SPEC WHEN PFRMD 11/14/14 Colonoscopy COLONOSCOPY W/BIOPSY SINGLE/MULTIPLE 11/14/2017 EGD 06/29/2018 ESOPHAGOGASTRODUODENOSCOPY TRANSORAL DIAGNOSTIC 07/14/2012 EGD KNEE ARTHROSCOP MENISCUS REPAIR MED/LAT 04/27/2017 LEFT HEART CATH,PERCUTANEOUS Cardiac cath, L heart PAST SURGICAL HISTORY OF 1951 evacuation of hematoma, PAST SURGICAL HISTORY OF 10/03 stents in both legs FAMILY HISTORY Problem Relation Age of Onset Cancer Mother liver cancer, dec. age 66 Alzheimer's Disease Mother Diabetes Mother Cancer Father lung cancer, dec. age 63 Coronary Artery Disease Father Genitourinary () Father nephrectomy posttrauma Social History Tobacco Use Smoking status: Former Packs/day: 0.50 Years: 25.00 Pack years: 12.50 Types: Cigarettes Quit date: 02/12/2013 Years since quittin.1 Smokeless tobacco: Never Vaping Use Vaping Use: Never used Substance Use Topics Alcohol use: Yes Comment: occasional 1 beer Drug use: No Current Outpatient Medications Medication Sig Dispense Refill levothyroxine (SYNTHROID) 125 mcg tablet Take 1 tablet by mouth once daily. 90 tablet 3 metFORMIN ER (GLUCOPHAGE XR) 500 mg 24 hr tablet Take 1 tablet by mouth daily with breakfast. 90 tablet 3 lancets (FREESTYLE LANCETS) 28 gauge Use one lancet daily ; E11.51, NIDDM 100 Each 3 blood sugar diagnostic (FREESTYLE LITE STRIPS) test strip Use one strip daily; E11.9, NIDDM 100 Strip 3 lisinopril (ZESTRIL, PRINIVIL) 10 mg tablet One tab daily Blood-Glucose Meter monitoring kit 1 Each as needed. pantoprazole DR (PROTONIX) 40 mg tablet Take 40 mg by mouth once daily. atorvastatin (LIPITOR) 40 mg tablet Take 1 tablet by mouth once daily. 90 tablet 3 carvedilol (COREG) 12.5 mg tablet Take 1 tablet by mouth twice daily with meals. 180 tablet 3 clopidogrel (PLAVIX) 75 mg tablet Take 1 tablet by mouth once daily. 90 tablet 3 spironolactone (ALDACTONE) 25 mg tablet Take 1 tablet by mouth once daily. 90 tablet 3 tamsulosin ER (FLOMAX) 0.4 mg cap TAKE 1 CAPSULE BY MOUTH EVERY EVENING. 90 capsule 3 hydroCHLOROthiazide (HYDRODIURIL, ESIDRIX) 12.5 mg tablet Take 1 tablet by mouth once daily. 90 tablet 3 No current facility-administered medications for this visit. Allergies As of Date: 04/13/2023 Allergen Noted Reaction LOSARTAN 08/11/2018 Other: See Comments PENICILLINS 06/09/2004 TETRACYCLINE 11/17/2018 GI Upset Fully Assessed 04/13/2023 REVIEW OF SYSTEMS: Review of Systems Respiratory: Negative for difficulty breathing. Cardiovascular: Negative for chest pain. Gastrointestinal: Negative for nausea, vomiting, diarrhea and constipation. PHYSICAL EXAM: BP 126/79 Pulse 75 Ht 175.3 cm (5' 9 ) Wt 111.6 kg (246 lb) SpO2 96% BMI 36.33 kg/m2 Physical Exam Constitutional: Appearance: Normal appearance. He is obese. Cardiovascular: Rate and Rhythm: Normal rate and regular rhythm. Pulmonary: Effort: Pulmonary effort is normal. Breath sounds: Normal breath sounds. Skin: General: Skin is warm and dry. Neurological: Mental Status: He is alert and oriented to person, place, and time. Psychiatric: Mood and Affect: Mood normal. Behavior: Behavior normal. DATA: Creatinine Date Value Ref Range Status 04/09/2023 0.95 0.73 - 1.22 mg/dL Final Hemoglobin A1C (%) Date Value 04/09/2023 6.5 12/14/2021 6.4 ) No components found for: URINEALBUMIN Cholesterol, Total (mg/dL) Date Value 04/09/2023 131 12/14/2021 128 HDL Cholesterol (mg/dL) Date Value 04/09/2023 47 12/14/2021 45 LDL Cholesterol (mg/dL) Date Value 04/09/2023 66 12/14/2021 61 Triglyceride (mg/dL) Date Value 04/09/2023 92 12/14/2021 111 IMPRESSION: Mr. Noonan is a 72 year old male here for evaluation of DM Type 2 complicated by hypertension, hyperlipidemia, cerebrovascular disease (CHF, cardiomyopathy), PVD, carotid occlusion,TIA/CVA, obesity. RECOMMENDATIONS: (E11.51) Type 2 diabetes mellitus with diabetic peripheral angiopathy without gangrene, without long-term current use of insulin (HCC) (primary encounter diagnosis) Comment: Glycemic control is at goal. 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 Plan: TSH BLD Continue same (I10) Essential hypertension, benign Comment: BP stable. Plan: Managed per PCP/cardiology; he is on an OLIVIA (E78.00) Pure hypercholesterolemia Comment: hx of CAD Plan: Managed per cardiology (I73.9) PVD (peripheral vascular disease) (HCC) Comment/Plan: hx fem/pop; managed per vascular (E66.9) Obesity, Class II, BMI 35-39.9 Comment: Body mass index is 36.33 kg/m . Plan: Encouraged increase dietary and exercise efforts as able Medical Decision Making: Level: 4 - Moderate Santa Stephen, MSN, TACK CUTTER, WHEEL GRINDER-C, CDE Endocrinology [facility] Building/[address] [place] [address] Fax: documented in this encounter [facility] 02-08-2023 Miscellaneous Notes Received a request for office notes prior 01/26/2023, Office notes from 07/01/2022, 10/01/2022 and 01/06/2023 faxed to: [phone] documented in this encounter [facility] 02-08-2023 Note HNO ID: [id number] Author: Quynh Cantor APRN.DOCTOR OF MEDICINE Service: ? Author Type: Nurse Practitioner Type: Progress Notes Filed: 02/08/2023 10:04 AM Note Text: CHIEF COMPLAINT: carotid ASO and aortioiliac ASO Patient is a 72 year old male here for a follow up evaluation of carotid ASO and aortioiliac ASO. Previous R iliac stent done around 2009. Currently he has no leg pain with walking, but admits to some ongoing R hip pain with longer distances or uneven surfaces - relieved with few minutes of rest. No rest pain, no ulceration. He also has a known L internal carotid occlusion that has been followed for at least 10 years. Quit smoking 10 years ago. SYMPTOMS: Asymptomatic TESTS: PVR w/exercise 01/31/23 - R 0.83, L 0.96, post exercise R 0.47, L 1.06 01/26/22 - R 0.87, L 0.96, post exercise R 0.62, L 1.10 01/06/21 - R 0.92, L 1.10. Post exercise R 0.42, L 0.67 08/14/19 - R 0.86, L 1.06, post exercise R 0.43, L 1.09 07/12/18 - R 0.84, post exercise 0.45, L 1.03 Carotid US 01/31/23 - R 20-39%, L 20-39% 09/09/21 - R 0/29%, L - distal occlusion 01/06/21 R 20-39%, L 20-39% at origin with distal occlusion 07/17/19 - R ICA PSV 83, 20-39%, L distal ICA occluded 07/12/18, results: JIM PSV 91, Ratio: 1.0, <50% LICA occluded. HISTORIES: PAST MEDICAL HISTORY Diagnosis Date Benign neoplasm of colon Tubular adenoma 2014 colonoscopy Brain TIA 06/02/2011 CAD (coronary artery disease), [place] coronary artery 06/03/2011 Cardiomyopathy, dilated, nonischemic ([facility]) 07/07/2011 Congestive heart failure ([facility]) 06/03/2011 Diabetes ([facility]) Dissection of carotid artery ([facility]) 06/10/2005 Knee cartilage, torn, right Lumbago 07/25/2007 Morbid obesity ([facility]) 08/15/2014 RUTHY (obstructive sleep apnea), intolerant of CPAP 12/30/2008 Intolerant of CPAP Pure hypercholesterolemia PVD (peripheral vascular disease) ([facility]) 06/03/2011 Snoring Sprain of neck Tobacco use disorder 12/30/2008 Toxic diffuse goiter without mention of thyrotoxic crisis or storm history of DYE treatment Type II or unspecified type diabetes mellitus without mention of complication, not stated as uncontrolled Unspecified essential hypertension Unspecified hypothyroidism Unspecified late effects of cerebrovascular disease Unspecified otitis media Unspecified transient cerebral ischemia 1998, 06/03/2011 PAST SURGICAL HISTORY Procedure Laterality Date ANGIOPLASTY FEMORAL/POP 03/11/2014 Right femoral. ARTERY X-RAYS, HEAD AND NECK 01/1999 Carotid angiogram CATARACT SURGERY, COMPLEX mid late bilateral COLONOSCOPY FLX DX W/COLLJ SPEC WHEN PFRMD 11/14/14 Colonoscopy COLONOSCOPY W/BIOPSY SINGLE/MULTIPLE 11/14/2017 EGD 06/29/2018 ESOPHAGOGASTRODUODENOSCOPY TRANSORAL DIAGNOSTIC 07/14/2012 EGD KNEE ARTHROSCOP MENISCUS REPAIR MED/LAT 04/27/2017 LEFT HEART CATH,PERCUTANEOUS Cardiac cath, L heart PAST SURGICAL HISTORY OF 1952 evacuation of hematoma, PAST SURGICAL HISTORY OF 10/03 stents in both legs Social History Tobacco Use Smoking status: Former Packs/day: 0.50 Years: 25.00 Pack years: 12.50 Types: Cigarettes Quit date: 02/12/2013 Years since quittin.9 Smokeless tobacco: Never Vaping Use Vaping Use: Never used Substance Use Topics Alcohol use: Yes Comment: occasional 1 beer Drug use: No FAMILY HISTORY Problem Relation Age of Onset Cancer Mother liver cancer, dec. age 66 Alzheimer's Disease Mother Diabetes Mother Cancer Father lung cancer, dec. age 63 Coronary Artery Disease Father Genitourinary () Father nephrectomy posttrauma MEDICATIONS: Current Outpatient Medications Medication Sig levothyroxine (SYNTHROID) 125 mcg tablet Take 1 tablet by mouth once daily. metFORMIN ER (GLUCOPHAGE XR) 500 mg 24 hr tablet Take 1 tablet by mouth daily with breakfast. lancets (FREESTYLE LANCETS) 28 gauge Use one lancet daily ; E11.51, NIDDM blood sugar diagnostic (FREESTYLE LITE STRIPS) test strip Use one strip daily; E11.9, NIDDM lisinopril (ZESTRIL, PRINIVIL) 10 mg tablet One tab daily Blood-Glucose Meter monitoring kit 1 Each as needed. pantoprazole DR (PROTONIX) 40 mg tablet Take 40 mg by mouth once daily. atorvastatin (LIPITOR) 40 mg tablet Take 1 [...] Take 1 tablet by mouth once daily. No current facility-administered medications for this visit. ALLERGIES Allergen Reactions Losartan Other: See Comments dizzy Penicillins hives Tetracycline GI Upset BP 112/60 (BP Site: Left Arm, BP Position: Sitting, BP Cuff Size: Large Adult) Pulse 79 Ht 5' 9 (1.753 m) (more content not included)... [facility] 01-06-2023 Note HNO ID: [id number] Author: Santa Stephen APRN.DOCTOR OF MEDICINE Service: ? Author Type: Nurse Practitioner Type: Progress Notes Filed: 01/06/2023 10:12 AM Note Text: Reason for Consultation: DM Type 2 Referring Physician: SELF HISTORY OF PRESENT ILLNESS; Mr. Noonan is a 72 year old male presenting for follow regarding DM Type 2. He was initially diagnosed with diabetes in May 2018 . He does have a family history of diabetes mellitus in his Mother. LV 10/01/22 A1C 6.3 on 01/03/23 History in addition to diabetes includes:Graves disease with ablation, hypothyroidism, PVD (stents leg), TIA, CAD, hypertension, hyperlipidemia, obesity, covid 19 Under the care of vascular for PVD and cardiology Had an eye exam March 2022. His current diabetes regimen is: Metformin ER 500 mg daily Regarding symptoms of hyperglycemia, he is not experiencing any symptoms such as polyuria, polydipsia, nocturia or rapid weight loss or blurry vision. Exercise: walking, ADL's Champ is checking his blood glucose 1 times daily at variable times . He did bring a logbook today for review: FBS 111, 101, 97, 93 AcL 103, 128, 129, 120 AcS 93, 131, 150 HS 108, 108, 137, 132 Hypoglycemia frequency: denies Hypoglycemia awareness: Yes Overall, the patient has no acute complaints at this time. Hypothyroidism: Hx of Graves disease, s/p DYE. Taking levothyroxine 125 mcg daily TSH 0.658 on 01/03/23 PAST MEDICAL HISTORY Diagnosis Date Benign neoplasm of colon Tubular adenoma 2014 colonoscopy Brain TIA 06/02/2011 CAD (coronary artery disease), [place] coronary artery 06/03/2011 Cardiomyopathy, dilated, nonischemic (HCC) 07/07/2011 Congestive heart failure (HCC) 06/03/2011 Diabetes (HCC) Dissection of carotid artery (HCC) 06/10/2005 Knee cartilage, torn, right Lumbago 07/25/2007 Morbid obesity (HCC) 08/15/2014 RUTHY [...] Unspecified otitis media Unspecified transient cerebral ischemia 1998, 06/03/2011 PAST SURGICAL HISTORY Procedure Laterality Date ANGIOPLASTY FEMORAL/POP 03/11/2014 Right femoral. ARTERY X-RAYS, HEAD AND NECK 01/1999 Carotid angiogram CATARACT SURGERY, COMPLEX mid late bilateral COLONOSCOPY FLX DX W/COLLJ SPEC WHEN PFRMD 11/14/14 Colonoscopy COLONOSCOPY W/BIOPSY SINGLE/MULTIPLE 11/14/2017 EGD 06/29/2018 ESOPHAGOGASTRODUODENOSCOPY TRANSORAL DIAGNOSTIC 07/14/2012 EGD KNEE ARTHROSCOP MENISCUS REPAIR MED/LAT 04/27/2017 LEFT HEART CATH,PERCUTANEOUS Cardiac cath, L heart PAST SURGICAL HISTORY OF 1951 evacuation of hematoma, PAST SURGICAL HISTORY OF 10/03 stents in both legs FAMILY HISTORY Problem Relation Age of Onset Cancer Mother liver cancer, dec. age 66 Alzheimer's Disease Mother Diabetes Mother Cancer Father lung cancer, dec. age 63 Coronary Artery Disease Father Genitourinary () Father nephrectomy posttrauma Social History Tobacco Use Smoking status: Former Packs/day: 0.50 Years: 25.00 Pack years: 12.50 Types: Cigarettes Quit date: 02/12/2013 Years since quittin.9 Smokeless tobacco: Never Substance Use Topics Alcohol use: Yes Comment: occasional 1 beer Drug use: No Current Outpatient Medications Medication Sig Dispense Refill lancets (FREESTYLE LANCETS) 28 gauge Use one lancet daily ; E11.51, NIDDM 100 Each 3 blood sugar diagnostic (FREESTYLE LITE STRIPS) test strip Use one strip daily; E11.9, NIDDM 100 Strip 3 levothyroxine (SYNTHROID) 125 mcg tablet Take 1 tablet by mouth once daily. 90 tablet 3 lisinopril (ZESTRIL, PRINIVIL) 10 mg tablet One tab daily metFORMIN ER (GLUCOPHAGE XR) 500 mg 24 hr tablet Take 1 tablet by mouth daily with breakfast. 90 tablet 3 Blood-Glucose Meter monitoring kit 1 Each as needed. pantoprazole DR (PROTONIX) 40 mg tablet Take 40 mg by mouth once daily. atorvastatin (LIPITOR) 40 mg tablet Take 1 tablet by mouth once daily. 90 tablet 3 carvedilol (COREG) 12.5 mg tablet Take 1 tablet by mouth twice daily with meals. 180 tablet 3 clopidogrel (PLAVIX) 75 mg tablet Take 1 tablet by mouth once daily. 90 tablet 3 spironolactone (ALDACTONE) 25 mg tablet Take 1 tablet by mouth once daily. 90 tablet 3 tamsulosin ER (FLOMAX) 0.4 mg cap TAKE 1 CAPSULE BY MOUTH EVERY EVENING. 90 capsule 3 hydroCHLOROthiazide (HYDRODIURIL, ESIDRIX) 12.5 mg tablet Take 1 tablet by mouth once daily. 90 tablet 3 metFORMIN ER (GLUCOPHAGE XR) 500 mg 24 hr tablet Take (more content not included)... [facility] 01-06-2023 History of Present illness Narrative Reason for Consultation: DM Type 2 Referring Physician: SELF HISTORY OF PRESENT ILLNESS; Mr. Noonan is a 72 year old male presenting for follow regarding DM Type 2. He was initially diagnosed with diabetes in May 2018 . He does have a family history of diabetes mellitus in his Mother. LV 10/01/22 A1C 6.3 on 01/03/23 History in addition to diabetes includes:Graves disease with ablation, hypothyroidism, PVD (stents leg), TIA, CAD, hypertension, hyperlipidemia, obesity, covid 19 Under the care of vascular for PVD and cardiology Had an eye exam March 2022. His current diabetes regimen is: Metformin ER 500 mg daily Regarding symptoms of hyperglycemia, he is not experiencing any symptoms such as polyuria, polydipsia, nocturia or rapid weight loss or blurry vision. Exercise: walking, ADL's Champ is checking his blood glucose 1 times daily at variable times . He did bring a logbook today for review: FBS 111, 101, 97, 93 AcL 103, 128, 129, 120 AcS 93, 131, 150 HS 108, 108, 137, 132 Hypoglycemia frequency: denies Hypoglycemia awareness: Yes Overall, the patient has no acute complaints at this time. Hypothyroidism: Hx of Graves disease, s/p DYE. Taking levothyroxine 125 mcg daily TSH 0.658 on 01/03/23 PAST MEDICAL HISTORY Diagnosis Date Benign neoplasm of colon Tubular adenoma 2014 colonoscopy Brain TIA 06/02/2011 CAD (coronary artery disease), [place] coronary artery 06/03/2011 Cardiomyopathy, dilated, nonischemic (HCC) 07/07/2011 Congestive heart failure (HCC) 06/03/2011 Diabetes (HCC) Dissection of carotid artery (HCC) 06/10/2005 Knee cartilage, torn, right Lumbago 07/25/2007 Morbid obesity ([facility]) 08/15/2014 RUTHY (obstructive sleep apnea), intolerant of CPAP 12/30/2008 Intolerant of CPAP Pure hypercholesterolemia PVD (peripheral vascular disease) ([facility]) 06/03/2011 Snoring Sprain of neck Tobacco use disorder 12/30/2008 Toxic diffuse goiter without mention of thyrotoxic crisis or storm history of DYE treatment Type II or unspecified type diabetes mellitus without mention of complication, not stated as uncontrolled Unspecified essential hypertension Unspecified hypothyroidism Unspecified late effects of cerebrovascular disease Unspecified otitis media Unspecified transient cerebral ischemia 1998, 06/03/2011 PAST SURGICAL HISTORY Procedure Laterality Date ANGIOPLASTY FEMORAL/POP 03/11/2014 Right femoral. ARTERY X-RAYS, HEAD & NECK 01/1999 Carotid angiogram CATARACT SURGERY, COMPLEX mid late bilateral COLONOSCOPY FLX DX W/COLLJ SPEC WHEN PFRMD 11/14/14 Colonoscopy COLONOSCOPY W/BIOPSY SINGLE/MULTIPLE 11/14/2017 EGD 06/29/2018 ESOPHAGOGASTRODUODENOSCOPY TRANSORAL DIAGNOSTIC 07/14/2012 EGD KNEE ARTHROSCOP MENISCUS REPAIR MED/LAT 04/27/2017 LEFT HEART CATH,PERCUTANEOUS Cardiac cath, L heart PAST SURGICAL HISTORY OF 1952 evacuation of hematoma, PAST SURGICAL HISTORY OF 10/03 stents in both legs FAMILY HISTORY Problem Relation Age of Onset Cancer Mother liver cancer, dec. age 66 Alzheimer's Disease Mother Diabetes Mother Cancer Father lung cancer, dec. age 63 Coronary Artery Disease Father Genitourinary () Father nephrectomy posttrauma Social History Tobacco Use Smoking status: Former Packs/day: 0.50 Years: 25.00 Pack years: 12.50 Types: Cigarettes Quit date: 02/12/2013 Years since quittin.9 Smokeless tobacco: Never Substance Use Topics Alcohol use: Yes Comment: occasional 1 beer Drug use: No Current Outpatient Medications Medication Sig Dispense Refill lancets (FREESTYLE LANCETS) 28 gauge Use one lancet daily ; E11.51, NIDDM 100 Each 3 blood sugar diagnostic (FREESTYLE LITE STRIPS) test strip Use one strip daily; E11.9, NIDDM 100 Strip 3 levothyroxine (SYNTHROID) 125 mcg tablet Take 1 tablet by mouth once daily. 90 tablet 3 lisinopril (ZESTRIL, PRINIVIL) 10 mg tablet One tab daily metFORMIN ER (GLUCOPHAGE XR) 500 mg 24 hr tablet Take 1 tablet by mouth daily with breakfast. 90 tablet 3 Blood-Glucose Meter monitoring kit 1 Each as needed. pantoprazole DR (PROTONIX) 40 mg tablet Take 40 mg by mouth once daily. atorvastatin (LIPITOR) 40 mg tablet Take 1 tablet by mouth once daily. 90 tablet 3 carvedilol (COREG) 12.5 mg tablet Take 1 tablet by mouth twice daily with meals. 180 tablet 3 clopidogrel (PLAVIX) 75 mg tablet Take 1 tablet by mouth once daily. 90 tablet 3 spironolactone (ALDACTONE) 25 mg tablet Take 1 tablet by mouth once daily. 90 tablet 3 tamsulosin ER (FLOMAX) 0.4 mg cap TAKE 1 CAPSULE BY MOUTH EVERY EVENING. 90 capsule 3 hydroCHLOROthiazide (HYDRODIURIL, ESIDRIX) 12.5 mg tablet Take 1 tablet by mouth once daily. 90 tablet 3 metFORMIN ER (GLUCOPHAGE XR) 500 mg 24 hr tablet Take 1 tablet by mouth daily with breakfast. 15 tablet 0 Calcium-Cholecalciferol, D3, 500 mg-10 mcg (400 unit) per tablet Take 1 tablet by mouth once daily. (Patient not taking: Reported on 01/06/2023) No current facility-administered medications for this visit. Allergies As of Date: 01/06/2023 Allergen Noted Reaction LOSARTAN 08/11/2018 Other: See Comments PENICILLINS 06/09/2004 TETRACYCLINE 11/17/2018 GI Upset Fully Assessed 01/06/2023 REVIEW OF SYSTEMS: Review of Systems Respiratory: Negative for difficulty breathing. Cardiovascular: Negative for chest pain. Gastrointestinal: Negative for nausea, vomiting, diarrhea and constipation. PHYSICAL EXAM: BP 111/63 Pulse 74 Resp 16 Ht 176 cm (5' 9.29 ) Wt 111.2 kg (245 lb 3.2 oz) SpO2 97% BMI 35.91 kg/m2 Physical Exam Constitutional: Appearance: Normal appearance. He is obese. Cardiovascular: Rate and Rhythm: Normal rate and regular rhythm. Pulmonary: Effort: Pulmonary effort is normal. Breath sounds: Normal breath sounds. Neurological: Mental Status: He is alert and oriented to person, place, and time. Psychiatric: Mood and Affect: Mood normal. Behavior: Behavior normal. Feet:Shoes and socks removed, sensitive to 10 gm monofilament, and calluses noted left;dry skin bilaterally DATA: Creatinine Date Value Ref Range Status 01/03/2023 0.98 0.73 - 1.22 mg/dL Final Hemoglobin A1C (%) Date Value 01/03/2023 6.3 12/14/2021 6.4 ) No components found for: URINEALBUMIN Cholesterol, Total (mg/dL) Date Value 01/03/2023 134 12/14/2021 128 HDL Cholesterol (mg/dL) Date Value 01/03/2023 41 12/14/2021 45 LDL Cholesterol (mg/dL) Date Value 01/03/2023 73 12/14/2021 61 Triglyceride (mg/dL) Date Value 01/03/2023 98 12/14/2021 111 IMPRESSION: Mr. Noonan is a 72 year old male here for evaluation of DM Type 2 complicated by hypertension, hyperlipidemia, cerebrovascular disease (CHF, cardiomyopathy), PVD, carotid occlusion,TIA/CVA, obesity. RECOMMENDATIONS: (E11.51) Type 2 diabetes mellitus with diabetic peripheral angiopathy without gangrene, without long-term current use of insulin (HCC) (primary encounter diagnosis) Comment: Glycemic control is at goal. Plan: metFORMIN ER (GLUCOPHAGE XR) 500 mg 24 hr tablet, COMP METABOLIC PANEL, LIPID PANEL BASIC, HGB A1C, TSH BLD Continue metformin. 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 Have a copy of your eye exam sent to us. *pt prefers to be seen every 3 months (E89.0) Postablative hypothyroidism Comment: Euthyroid on the present dose of thyroxine. Plan: levothyroxine (SYNTHROID) 125 mcg tablet, TSH BLD Continue same (I10) Essential hypertension, benign Comment: BP stable. Plan: Managed per PCP/cardiology; he is on an OLIVIA (E78.00) Pure hypercholesterolemia Comment: hx of CAD Plan: Managed per cardiology (I73.9) PVD (peripheral vascular disease) ([facility]) Comment/Plan: hx fem/pop; managed per vascular (E66.9) Obesity, Class II, BMI 35-39.9 Comment: Body mass index is 35.91 kg/m . Plan: Encouraged increase dietary and exercise efforts as able Medical Decision Making: Level: 4 - Moderate Santa Stephen, MSN, TACK CUTTER, WHEEL GRINDER-C, CDE Endocrinology [facility] Building/[address], [address] [place], [place] [address] Fax: documented in this encounter [facility] 11-30-2022 Miscellaneous Notes Left VM to schedule OV. Annual f/up - PVD and Occlusion of left carotid artery.(PVR & US prior) documented in this encounter [facility] 10-26-2022 Miscellaneous Notes Requester: Pharmacy Last Visit in Endocrinology: Provider name: Santa Stephen CNP , Date 10/01/2022 Next Scheduled Appt in Endo: 01/06/2023 Last Refill: 11/05/2021 Number of Refills given: 3 Requested Prescriptions Pending Prescriptions Disp Refills lancets (FREESTYLE LANCETS) 28 gauge [Pharmacy Med Name: FREESTYLE 28G LANCETS] 3 Sig: USE DIRECTED ONCE DAILY Please review and advise. Donna Henry MA documented in this encounter [facility] 06-25-2022 Miscellaneous Notes Call placed and message left stating lab order placed Lab order placed. Thank you Patient is currently at the lab and requesting lab orders. Please place if appropriate and advise. Date of next office visit : 07/01/2022 Quynh Tamayo documented in this encounter [facility] 03-26-2022 History of Present illness Narrative Reason for Consultation: DM Type 2 Referring Physician: SELF HISTORY OF PRESENT ILLNESS; Mr. Noonan is a 71 year old male presenting for follow regarding DM Type 2. He was initially diagnosed with diabetes in May 2018 . He does have a family history of diabetes mellitus in his Mother. LV 12/17/21 A1C 6.3 on 03/23/22 2nd daughter is now engaged. Had covid in mid February along with his . Recovered well but still slight lingering cough. Under the care of vascular for PVD and cardiology History in addition to diabetes includes:Graves disease with ablation, hypothyroidism, PVD (stents leg), TIA, CAD, hypertension, hyperlipidemia, obesity, covid 19 His current diabetes regimen is: Metformin ER 500 mg daily Regarding symptoms of hyperglycemia, he is not experiencing any symptoms such as polyuria, polydipsia, nocturia or rapid weight loss or blurry vision. Exercise: walking, ADL's Champ is checking his blood glucose 1 times daily at variable times . He did bring a logbook today for review: FBS 107, 106, 97 AcL 109, 93, 99, 89 AcS97, 102, 115, 103 HS131, 109, 106 Hypoglycemia frequency: denies Hypoglycemia awareness: Yes Overall, the patient has no acute complaints at this time. Hypothyroidism: Hx of Graves disease, s/p DYE. Taking levothyroxine 125 mcg daily TSH 2.210 on 03/23/22 PAST MEDICAL HISTORY Diagnosis Date Benign neoplasm of colon Tubular adenoma 2014 colonoscopy Brain TIA 06/02/2011 CAD (coronary artery disease), [place] coronary artery 06/03/2011 Cardiomyopathy, dilated, nonischemic (HCC) 07/07/2011 Congestive heart failure (HCC) 06/03/2011 Diabetes (HCC) Dissection of carotid artery (HCC) 06/10/2005 Knee cartilage, torn, right Lumbago 07/25/2007 Morbid obesity (HCC) 08/15/2014 RUTHY (obstructive sleep apnea), intolerant of CPAP 12/30/2008 Intolerant of CPAP Pure hypercholesterolemia PVD (peripheral vascular disease) ([facility]) 06/03/2011 Snoring Sprain of neck Tobacco use disorder 12/30/2008 Toxic diffuse goiter without mention of thyrotoxic crisis or storm history of DYE treatment Type II or unspecified type diabetes mellitus without mention of complication, not stated as uncontrolled Unspecified essential hypertension Unspecified hypothyroidism Unspecified late effects of cerebrovascular disease Unspecified otitis media Unspecified transient cerebral ischemia 1998, 06/03/2011 PAST SURGICAL HISTORY Procedure Laterality Date ANGIOPLASTY FEMORAL/POP 03/11/2014 Right femoral. ARTERY X-RAYS, HEAD & NECK 01/1999 Carotid angiogram CATARACT SURGERY, COMPLEX mid late bilateral COLONOSCOPY FLX DX W/COLLJ SPEC WHEN PFRMD 11/14/14 Colonoscopy COLONOSCOPY W/BIOPSY SINGLE/MULTIPLE 11/14/2017 EGD 06/29/2018 ESOPHAGOGASTRODUODENOSCOPY TRANSORAL DIAGNOSTIC 07/14/2012 EGD KNEE ARTHROSCOP MENISCUS REPAIR MED/LAT 04/27/2017 LEFT HEART CATH,PERCUTANEOUS Cardiac cath, L heart PAST SURGICAL HISTORY OF 1951 evacuation of hematoma, PAST SURGICAL HISTORY OF 10/03 stents in both legs FAMILY HISTORY Problem Relation Age of Onset Cancer Mother liver cancer, dec. age 66 Alzheimer's Disease Mother Diabetes Mother Cancer Father lung cancer, dec. age 63 Coronary Artery Disease Father Genitourinary () Father nephrectomy posttrauma Social History Tobacco Use Smoking status: Former Smoker Packs/day: 0.50 Years: 25.00 Pack years: 12.50 Types: Cigarettes Quit date: 02/12/2013 Years since quittin.1 Smokeless tobacco: Never Used Substance Use Topics Alcohol use: Yes Comment: occasional 1 beer Drug use: No Current Outpatient Medications Medication Sig Dispense Refill metFORMIN ER (GLUCOPHAGE XR) 500 mg 24 hr tablet Take 1 tablet by mouth daily with breakfast. 90 tablet 3 Calcium-Cholecalciferol, D3, (CALCIUM 500 + D) 500 mg-10 mcg (400 unit) per tablet Take 1 tablet by mouth once daily. lancets (FREESTYLE LANCETS) 28 gauge Use on lancet daily, E 11.9, NIDDM 100 Each 3 levothyroxine (SYNTHROID) 125 mcg tablet Take 1 tablet by mouth once daily. 90 tablet 3 blood sugar diagnostic (FREESTYLE LITE STRIPS) test strip CHECK BLOOD GLUCOSE DAILY FOR TYPE 2 DM E11.9; NIDDM 100 Strip 3 Blood-Glucose Meter (FREESTYLE LITE METER) monitoring kit 1 Each as needed. pantoprazole DR (PROTONIX) 40 mg tablet Take 40 mg by mouth once daily. lisinopril (ZESTRIL, PRINIVIL) 10 mg tablet ON HOLD WHILE TRYING LOSARTAN INSTEAD TO SEE IF COUGH IS FROM THIS MED atorvastatin (LIPITOR) 40 mg tablet Take 1 tablet by mouth once daily. 90 tablet 3 carvedilol (COREG) 12.5 mg tablet Take 1 tablet by mouth twice daily with meals. 180 tablet 3 clopidogrel (PLAVIX) 75 mg tablet Take 1 tablet by mouth once daily. 90 tablet 3 spironolactone (ALDACTONE) 25 mg tablet Take 1 tablet by mouth once daily. 90 tablet 3 tamsulosin ER (FLOMAX) 0.4 mg cap TAKE 1 CAPSULE BY MOUTH EVERY EVENING. 90 capsule 3 hydroCHLOROthiazide (HYDRODIURIL, ESIDRIX) 12.5 mg tablet Take 1 tablet by mouth once daily. 90 tablet 3 iv contrast (will be provided with radiology [...] guidelines link. (Patient not taking: Reported on 01/29/2022 ) 1 Each 0 No current facility-administered medications for this visit. Allergies As of Date: 03/26/2022 Allergen Noted Reaction LOSARTAN 08/11/2018 Other: See Comments PENICILLINS 06/09/2004 TETRACYCLINE 11/17/2018 GI Upset Fully Assessed 03/26/2022 REVIEW OF SYSTEMS: Review of Systems HENT: Negative for trouble swallowing and thyroid pain (lower neck). Respiratory: Negative for difficulty breathing. Cardiovascular: Negative for chest pain. Gastrointestinal: Negative for nausea, vomiting, diarrhea and constipation. PHYSICAL EXAM: BP 119/76 Pulse 83 Wt 108.9 kg (240 lb) SpO2 98% BMI 34.93 kg/m2 Physical Exam Constitutional: Appearance: Normal appearance. He is obese. Cardiovascular: Rate and Rhythm: Normal rate and regular rhythm. Pulmonary: Effort: Pulmonary effort is normal. Breath sounds: Normal breath sounds. Skin: General: Skin is warm and dry. Neurological: Mental Status: He is alert and oriented to person, place, and time. Psychiatric: Mood and Affect: Mood normal. Behavior: Behavior normal. DATA: Creatinine Date Value Ref Range Status 03/23/2022 1.10 0.73 - 1.22 mg/dL Final Hemoglobin A1C (%) Date Value 03/23/2022 6.3 12/14/2021 6.4 ) No components found for: URINEALBUMIN Cholesterol, Total (mg/dL) Date Value 03/23/2022 127 12/14/2021 128 HDL Cholesterol (mg/dL) Date Value 03/23/2022 44 12/14/2021 45 LDL Cholesterol (mg/dL) Date Value 03/23/2022 62 12/14/2021 61 Triglyceride (mg/dL) Date Value 03/23/2022 103 12/14/2021 111 IMPRESSION: Mr. Noonan is a 71 year old male here for evaluation of DM Type 2 complicated by hypertension, hyperlipidemia, cerebrovascular disease (CHF, cardiomyopathy), PVD, carotid occlusion. and TIA/CVA, obesity. RECOMMENDATIONS: (E11.9) Controlled type 2 diabetes mellitus without complication, without long-term current use of insulin ([facility]) (primary encounter diagnosis) Comment: Glycemic control is at goal. Tolerating metformin well. Plan: Continue metformin. Follow up in 3 months (patient prefers Q3 month follow ups) (E89.0) Postablative hypothyroidism Comment: he is euthyroid on the present dose of thyroxine Plan: levothyroxine (SYNTHROID) 125 mcg tablet TSH BLD continue same thyroxine dose. (I10) Essential hypertension, benign Comment: BP stable. Plan: Managed per PCP/cardiology; he is on an OLIVIA (E78.00) Pure hypercholesterolemia Comment: hx of CAD Plan: Managed per cardiology (I73.9) PVD (peripheral vascular disease) ([facility]) Comment/Plan: hx fem/pop; managed per vascular (E66.9, Z68.34) Class 1 obesity with serious comorbidity and body mass index (BMI) of 34.0 to 34.9 in adult, unspecified obesity type Comment: Body mass index is 34.93 kg/m . Plan: Encouraged increase dietary and exercise efforts as able Medical Decision Making: Level: 4 - Moderate Santa Stephen, MSN, TACK CUTTER, WHEEL GRINDER-C, CDE Endocrinology [facility] Office [facility]/[address], [address] [place], [place] [address] Fax: documented in this encounter [facility] 02-22-2022 Miscellaneous Notes Requester: Pharmacy Last Visit in Endocrinology: Provider name: Santa Stephen CNP , Date 12/17/2021 Next Scheduled Appt in Endo: 03/18/2022 Last Refill: 06/12/21 Number of Refills given: 3 Pending Prescriptions Disp Refills METFORMIN ER 500 MG TABLET,EXTENDED RELEASE 24 HR 180 tablet 3 Sig: TAKE 1 TABLET BY MOUTH TWICE A DAY WITH MEALS RAFAEL: Yes Please review and advise. Sandra Mcgee LPN documented in this encounter [facility] 02-11-2022 Nurse Note AMBULATORY CYSTOSCOPY PROCEDURE PREOPERATIVE/PROCEDURAL VERIFICATION: Patient verified by: Name and Date of UNIVERSAL PROTOCOL / SAFETY CHECKLIST Procedure to be Performed: Cystoscopy Sign In: A Moment of CARE was completed. Personnel directly involved with the procedure wore the appropriate PPE (Personal Protective Equipment). No special equipment needed. Patient/Surrogate Stated/Verified: PATIENT VERIFIED(optional for EMERGENT procedures): Patient name, Date of , Relevant allergies and The intended procedure Time Out Communication: Intended patient and procedure match the source documents. Consent documented and matches the intended procedure. No relevant labs, photos, and/or imaging studies were applicable for review. No correct side/site applicable for marking and visibility. Medications required for procedure verified. No fire risk assessment and interventions applicable. No implant(s) inserted. Sign Out: SIGN OUT (optional for EMERGENT procedures): All specimen containers correctly labeled. No instruments, equipment or retained foreign bodies applicable. Maylin Kaur Ma Medications and allergies reviewed and updated. Latex Allergy:No Pre-Procedure Antibiotics: Macrobid 100 mg orally given during visit @ 11:00 am , by Maylin Kaur Ma Pre-Procedure Vital Signs: BP Blood pressure 132/69, pulse 77, resp. rate 18, height 176.5 cm (5' 9.5 ), weight 108 kg (238 lb). Current pain intensity is 0 on a scale of 0-10. Patient Prepped with Betadine Scrub to perineum and placement of sterile drape. Anesthetic Given: 10cc 2% Lidocaine Jelly into Urethra. Instruction sheet given and reviewed: Yes Patient verbalizes understanding: Yes Post- procedure Vital Signs: B/P: 127/72 P: 79 R:18 Pain Ratin on a scale of 0 to 10. Specimens: obtained: Urine Dip Result: Leukocytes: trace Blood: trace Urine Cytology sent to lab Nurse: Maylin Kaur Ma documented in this encounter [facility] 02-11-2022 Miscellaneous Notes Addended by: MAYLIN KAUR MA on: 02/11/2022 11:52 AM Modules accepted: Orders documented in this encounter [facility] 02-11-2022 Procedure note Procedure(s): CYSTOURETHROSCOPY Pre-Procedure Diagnose(s): Gross hematuria Post-Procedure Diagnose(s): Gross hematuria CYSTOSCOPY PROCEDURE NOTE : Champ Noonan is a 71 year old male who presents with Hematuria gross for cystoscopy. Pt ID verified with patient: Yes Procedure verified with patient: Yes Procedure confirmed with physician and academic support center director: Yes UNIVERSAL PROTOCOL / SAFETY CHECKLIST Procedure to be Performed: Cystoscopy Sign In: A Moment of CARE was completed. Personnel directly involved with the procedure wore the appropriate PPE (Personal Protective Equipment). Patient/Surrogate Stated/Verified: PATIENT VERIFIED(optional for EMERGENT procedures): Patient name, Date of , Relevant allergies and The intended procedure Time Out Communication: Intended patient and procedure match the source documents. Consent documented and matches the intended procedure. Sign Out: SIGN OUT (optional for EMERGENT procedures): No specimen collected. Charan Ma MD A urinalysis was performed revealing no evidence of infection. The benefits, risks, alternatives of the cystoscopy procedure and personnel were discussed with the patient. The verbal consent was obtained and the patient agrees to proceed. Procedure: The patient was placed on the procedure table in the supine position and prepped and draped in the usual sterile fashion. 2% Lidocaine Jelly was placed per urethra as an anesthetic in the standard fashion. Once adequate local anesthesia was achieved, the tip of the flexible cystoscope was carefully placed into the urethra under direct visual guidance. The scope was negotiated through the pendulous urethra to the level of the bulbar urethra with no evidence of stricture. The verumontanum came into view and the scope was negotiated through the prostatic urethra which showed evidence of bi lobar occlusive disease. The bladder was entered and careful davenport endoscopy was carried out. The posterior, superior and lateral cates and dome of the bladder were all well visualized and the scope was retroflexed upon itself. The findings were consistent with no evidence of bladder mucosal pathology. The findings were consistent with smooth, not trabeculated bladder. At the conclusion of the procedure, the flexible cystoscope was removed atraumatically. The patient tolerated the procedure without complications. Patient was given standard post-procedure instructions, and was directed to complete the course of oral antibiotics and increase oral fluid intake as directed. IMPRESSION: PLAN: History of recurrent gross hematuria years ago. Urogram was negative. Endoscopy today was benign. Recommended urine cytology Call if symptoms recur Charan Ma MD Electronically Signed: Charan Ma MD February 11, 2022 11:25 AM This note was partially created using voice recognition software and is inherently subject to errors including those of syntax and sound-alike substitutions which may escape proofreading. In such instances, original meaning may be extrapolated by contextual derivation. documented in this encounter [facility] 01-29-2022 History of Present illness Narrative CHIEF COMPLAINT: carotid ASO and aortioiliac ASO Patient is a 71 year old male here for a follow up evaluation of carotid ASO and aortioiliac ASO. Previous R iliac stent done around 2009. Currently he has no leg pain with walking, some soreness in his left leg that he attributes to over exerting himself recently. No rest pain, no ulceration. He also has a known L internal carotid occlusion that has been followed for at least 10 years. Quit smoking several years ago. Also recently had some L arm pain and was concerned that he was having stroke symptoms - carotid US was unchanged, and he was evaluated by spine who determined that he had cervical DDD. SYMPTOMS: No claudication at this time TESTS: PVR 01/26/22 - R 0.87, L 0.96, post exercise R 0.62, L 1.10 WILY's, 01/06/21 R 0.92, L 1.10. Post exercise R 0.42, L 0.67 08/14/19 - R 0.86, L 1.06, post exercise R 0.43, L 1.09 date 07/12/18, results: Right WILY=0.84, post exercise 0.45 Left WILY=1.03 Carotid 09/09/21 - R 0/29%, L - distal occlusion 01/06/21 R 20-39%, L 20-39% at origin with distal occlusion 07/17/19 - R ICA PSV 83, 20-39%, L distal ICA occluded date 07/12/18, results: JIM PSV 91, Ratio: 1.0, <50% LICA occluded. HISTORIES: PAST MEDICAL HISTORY Diagnosis Date Benign neoplasm of colon Tubular adenoma 2014 colonoscopy Brain TIA 06/02/2011 CAD (coronary artery disease), [place] coronary artery 06/03/2011 Cardiomyopathy, dilated, nonischemic ([facility]) 07/07/2011 Congestive heart failure ([facility]) 06/03/2011 Diabetes ([facility]) Dissection of carotid artery ([facility]) 06/10/2005 Knee cartilage, torn, right Lumbago 07/25/2007 Morbid obesity ([facility]) 08/15/2014 RUTHY (obstructive sleep apnea), intolerant of CPAP 12/30/2008 Intolerant of CPAP Pure hypercholesterolemia PVD (peripheral vascular disease) ([facility]) 06/03/2011 Snoring Sprain of neck Tobacco use disorder 12/30/2008 Toxic diffuse goiter without mention of thyrotoxic crisis or storm history of DYE treatment Type II or unspecified type diabetes mellitus without mention of complication, not stated as uncontrolled Unspecified essential hypertension Unspecified hypothyroidism Unspecified late effects of cerebrovascular disease Unspecified otitis media Unspecified transient cerebral ischemia 1998, 06/03/2011 PAST SURGICAL HISTORY Procedure Laterality Date ANGIOPLASTY FEMORAL/POP 03/11/2014 Right femoral. ARTERY X-RAYS, HEAD & NECK 01/1999 Carotid angiogram CATARACT SURGERY, COMPLEX mid late bilateral COLONOSCOPY FLX DX W/COLLJ SPEC WHEN PFRMD 11/14/14 Colonoscopy COLONOSCOPY W/BIOPSY SINGLE/MULTIPLE 11/14/2017 EGD 06/29/2018 ESOPHAGOGASTRODUODENOSCOPY TRANSORAL DIAGNOSTIC 07/14/2012 EGD KNEE ARTHROSCOP MENISCUS REPAIR MED/LAT 04/27/2017 LEFT HEART CATH,PERCUTANEOUS Cardiac cath, L heart PAST SURGICAL HISTORY OF 1952 evacuation of hematoma, PAST SURGICAL HISTORY OF 10/03 stents in both legs Social History Tobacco Use Smoking status: Former Smoker Packs/day: 0.50 Years: 25.00 Pack years: 12.50 Types: Cigarettes Quit date: 02/12/2013 Years since quittin.9 Smokeless tobacco: Never Used Substance Use Topics Alcohol use: Yes Comment: occasional 1 beer Drug use: No FAMILY HISTORY Problem Relation Age of Onset Cancer Mother liver cancer, dec. age 66 Alzheimer's Disease Mother Diabetes Mother Cancer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
== END | disposition home or self-care (01) ==
LOC: PSN 10:50
PROVIDERS: PCP Internal Medicine; Referring Provider Nurse Practitioner Gerontology; Visit Provider Nurse Practitioner Gerontology
DX: R00.0 Tachycardia, unspecified (principal); I42.0 Dilated cardiomyopathy
CPT/HCPCS: 93225; 93226

== ENCOUNTER → 2023-11-24 | Outpatient (CLI) | payer MEDICARE, SELFPAY ==
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
== END | disposition home or self-care (01) ==
LOC: LAB 16:50
PROVIDERS: PCP Internal Medicine; Referring Provider Internal Medicine; Visit Provider Internal Medicine
DX: R06.02 Shortness of breath (principal); I42.0 Dilated cardiomyopathy
CPT/HCPCS: 36415; 83880

== ENCOUNTER → 2023-12-09 | Outpatient (CLI) | payer MEDICARE, SELFPAY ==
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
== END | disposition home or self-care (01) ==
LOC: SL 19:58
PROVIDERS: PCP Internal Medicine; Visit Provider Internal Medicine
DX: G47.33 Obstructive sleep apnea (adult) (pediatric) (principal)
CPT/HCPCS: 95811

== ENCOUNTER → 2023-12-16 | Outpatient (CLI) | payer MEDICARE, SELFPAY ==
--- NOTE | 2023-12-16 09:58 | ECHOCS_ITS ---
Reason For Study: Tachycardia Procedure This was a 2D Doppler, Color Flow transthoracic echocardiogram. Contrast injection was performed. Exam performed in department. Left Ventricle Normal LV size. Mild concentric left ventricular hypertrophy. The left ventricular ejection fraction is 35 %. Moderately severe segmental systolic dysfunction (see wall motion). Stage 1 diastolic dysfunction. There is moderate global hypokinesis of the left ventricle. Septal [place] : Akinetic. Lateral-Basal: Normal. Right Ventricle Normal RV size. Normal systolic function. Tricuspid Valve Normal tricuspid valve. Mild tricuspid valve insufficiency. Pulmonic Valve The pulmonic valve is not well visualized. Great Vessels Normal aortic root. Pericardium/Pleural No pericardial effusion. Medication Diluted definity 4ml given slow IV push to enhance endocardial definition. MMode/2D Measurements & Calculations LVIDd: 4.3 cm IVSd: 1.2 cm Ao root diam: 3.6 cm LVIDs: 3.4 cm LVPWd: 1.2 cm RVDd: 2.6 cm FS: 19.6 % LAV(MOD-bp): 33.9 ml SV(MOD-sp4): 42.5 ml LVAd ap4: 32.2 cm2 LAV(MOD-bp) Indexed: 14.9 ml/m2 LVLd ap4: 7.9 cm LAV(MOD-sp2): 37.0 ml EDV(MOD-sp4): 109.0 ml LAV(MOD-sp4): 29.5 ml EDV(sp4-el): 111.5 ml LVAs ap4: 23.9 cm2 LVLs ap4: 7.0 cm ESV(MOD-sp4): 66.5 ml ESV(sp4-el): 69.2 ml EF(MOD-sp4): 39.0 % EF(sp4-el): 38.0 % SV(sp4-el): 42.4 ml LA dimension(2D): 4.4 cm LA A4 area: 12.3 cm2 RA A4 area: 9.0 cm2 Time Measurements MV dec time: 0.28 sec Doppler Measurements & Calculations MV E max ventura: 61.7 cm/sec Lat Peak E' [place]ura: 4.5 cm/sec Med Peak E' [place]ura: 2.8 cm/sec MV A max ventura: 106.7 cm/sec E/E' lat: 13.8 E/E' med: 22.2 MV E/A: 0.58 Ao V2 max: 124.8 cm/sec LV V1 max: 97.5 cm/sec MV dec slope: 223.9 cm/sec2 Ao max P.2 mmHg LV V1 max P.8 mmHg Ao V2 mean: 86.5 cm/sec Ao mean P.4 mmHg Ao V2 VTI: 24.0 cm PA V2 max: 91.3 cm/sec PI end-d ventura: 129.2 cm/sec TR max ventura: 236.2 cm/sec TR max P.3 mmHg ECHO/Echo Complete W/ Contrast Interpretation Summary Normal LV size. The left ventricular ejection fraction is 35 %. Moderately severe segmental systolic dysfunction (see wall motion). Stage 1 diastolic dysfunction. Contrast injection was performed. Ordering Physician: Pati Kenny Referring Physician: Suki Brewer Performed By: Jessica Shah, DESIREE, RVT
== END | disposition home or self-care (01) ==
LOC: PSN 09:52 → CVS 09:57
PROVIDERS: PCP Internal Medicine; Referring Provider Nurse Practitioner Family; Visit Provider Nurse Practitioner Family
DX: R00.0 Tachycardia, unspecified (principal); I42.0 Dilated cardiomyopathy
CPT/HCPCS: 93306; Q9957; A4216; C8929

== ENCOUNTER → 2023-12-28 | Outpatient (CLI) | payer MEDICARE, SELFPAY ==
[2023-12-28] MEDS: Zolpidem Tartrate 5 MG Tablet PO (21:30)
== END | disposition home or self-care (01) ==
LOC: SL 19:57
PROVIDERS: PCP Internal Medicine; Referring Provider Internal Medicine; Visit Provider Internal Medicine
DX: G47.33 Obstructive sleep apnea (adult) (pediatric) (principal)
CPT/HCPCS: 95811

== ENCOUNTER → 2024-01-16 | Outpatient (CLI) | payer MEDICARE, SELFPAY ==
[2024-01-16 10:19] LABS: Anion Gap 7 (5-15); BUN 21 mg/dL (7-18); BUN/Creat Ratio 16.7 RATIO (10-20); Calcium,Total 8.9 mg/dL (8.5-10.1); Chloride 106 mmol/L (98-107); Creatinine, Serum 1.26 mg/dL (0.70-1.30); EST Glomerular Filtration Rate 60 mL/min (>60); Est Glom Filt Rate - Afr Amer 72 mL/min (>60); Glucose 133 mg/dL (74-106); Potassium 4.1 mmol/L (3.5-5.1); Sodium Level 138 mmol/L (136-145)
== END | disposition home or self-care (01) ==
LOC: LAB 08:19
PROVIDERS: PCP Internal Medicine; Referring Provider Nurse Practitioner Family; Visit Provider Nurse Practitioner Family
DX: E11.69 Type 2 diabetes mellitus with other specified complication (principal); I42.0 Dilated cardiomyopathy
CPT/HCPCS: 36415; 80048

== ENCOUNTER → 2024-04-23 | Outpatient (CLI) | payer MEDICARE, SELFPAY ==
--- NOTE | 2024-04-23 08:01 | ECHOLC_ITS ---
Reason For Study: DCMP Procedure This was a limited 2D transthoracic echocardiogram. The study was technically difficult. Contrast injection was performed. Exam performed in department. Left Ventricle Normal LV size. Mild concentric left ventricular hypertrophy. Moderate segmental systolic dysfunction (see wall motion). The left ventricular ejection fraction is 35 %. [place] : Akinetic. Infero-Basal: Normal. Lateral-Basal: Normal. Posterior-Basal: Normal. Anterio-Basal: Normal. Mid- Anterior : Akinetic. Mid-anteroseptal : Akinetic. Right Ventricle Normal RV size. Normal systolic function. Atria Normal left atrium. Normal right atrium. Mitral Valve Normal mitral valve. Tricuspid Valve Normal tricuspid valve. Aortic Valve Trisinus/trileaflet aortic valve. Mild focal aortic valve calcification. Pulmonic Valve Normal pulmonic valve. Great Vessels Normal aortic root. The pulmonary artery is normal size. Inferior vena cava collapse with respiration. Pericardium/Pleural No pericardial effusion. Medication 22 gauge I.V. with prn adaptor inserted into right arm. Diluted definity 1.5ml given slow IV push to enhance endocardial definition. MMode/2D Measurements & Calculations LVIDd: 4.7 cm IVSd: 1.4 cm LAV(MOD-bp): 50.9 ml LVIDs: 3.3 cm LVPWd: 1.4 cm FS: 30.9 % LAV(MOD-bp) Indexed: 22.8 ml/m2 LAV(MOD-sp2): 63.3 ml LAV(MOD-sp4): 41.5 ml SV(MOD-sp4): 52.8 ml SV(sp4-el): 51.8 ml LVAd ap4: 35.8 cm2 LVLd ap4: 8.7 cm EDV(MOD-sp4): 123.5 ml EDV(sp4-el): 125.3 ml LVAs ap4: 26.1 cm2 LVLs ap4: 7.9 cm ESV(MOD-sp4): 70.8 ml ESV(sp4-el): 73.5 ml EF(MOD-sp4): 42.7 % EF(sp4-el): 41.3 % LA dimension(2D): 3.9 cm LA A4 area: 16.3 cm2 RA A4 area: 13.9 cm2 ECHO/Echo Limited w/Contrast Interpretation Summary Normal LV size. The left ventricular ejection fraction is 35 %. Mid-Anterior : Akinetic. Moderate segmental systolic dysfunction (see wall motion). Mild concentric left ventricular hypertrophy. Contrast injection was performed. Ordering Physician: Charan Shah Referring Physician: Charan Shah Performed By: Brenda Macdonald RCS
== END | disposition home or self-care (01) ==
LOC: CVS 08:00
PROVIDERS: PCP Internal Medicine; Referring Provider Nurse Practitioner Family; Visit Provider Nurse Practitioner Family
DX: I25.10 Atherosclerotic heart disease of native coronary artery without angina pectoris (principal); I42.0 Dilated cardiomyopathy
CPT/HCPCS: 93308; Q9957; A4216; C8924

== ENCOUNTER → 2024-05-15 | Outpatient (CLI) | payer MEDICARE, SELFPAY ==
--- NOTE | 2024-05-15 16:12 | STRESSREP_ITS ---
Stress Test Report Pharmacologic myocardial perfusion stress test. 73-year-old man with a history of cardiomyopathy Resting EKG demonstrates sinus rhythm with a rate of 65 bpm. Left bundle branch block pattern is noted. Resting blood pressure is 130/68 mmHg. 0.4 mg of regadenoson was infused per usual protocol followed by rapid intravenous saline flush injection. Continuous EKG monitoring was performed. The maximum heart rate was 86 bpm which was 58% of max impacted heart rate the maximum workload was 1 metabolic equivalent. At rest there were no ST or T wave changes noted to suggest ischemia and at peak infusion nonspecific ST changes were noted which did not meet the criteria for ischemia. No clinical angina is noted. The final blood pressure was 128/60 mmHg. Myocardial perfusion protocol. 14.6 mCi of technetium 99m sestamibi was injected at rest. 0.4 mg of regadenoson was infused per usual protocol. At peak infusion 44.7 mCi of caprice hnetium 99m sestamibi was injected stress images were obtained stress and rest images were reconstructed and compared in the short axis vertical long and horizontal long axis. Gated images were also obtained. Perfusion SPECT analysis: Review of the stress images demonstrate normal uptake of tracer noted in all areas of the myocardium. There is however an area in the anterior septal wall with reduced perfusion which on the resting images demonstrate a similar pattern. The above is likely secondary to the bundle branch morphology and a possible infarct but no ischemia is present. Gated SPECT analysis: The gated ejection fraction is 57%. Conclusion: Normal pharmacologic myocardial perfusion stress test. Preserved ejection fraction.
== END | disposition home or self-care (01) ==
PROVIDERS: PCP Internal Medicine; Referring Provider Nurse Practitioner Family; Visit Provider Nurse Practitioner Family
DX: Z01.810 Encounter for preprocedural cardiovascular examination (principal); I42.0 Dilated cardiomyopathy; E11.69 Type 2 diabetes mellitus with other specified complication; I25.10 Atherosclerotic heart disease of native coronary artery without angina pectoris; I10 Essential (primary) hypertension; E78.5 Hyperlipidemia, unspecified
CPT/HCPCS: 78452; 93017; A9500; A4216; J2785

== ENCOUNTER → 2024-07-16 | Outpatient (CLI) | payer MEDICARE, SELFPAY ==
--- NOTE | 2024-07-16 07:39 | CT_ITS ---
PROCEDURE: CT RIGHT KNEE WITHOUT CONTRAST REASON FOR EXAM: Male, 73 years old. Preoperative planning for the MakoPlasty Robotic knee surgery. Knee pain. TECHNIQUE: Transaxial CT of the hip, knee and ankle were obtained. Coronal and sagittal reconstruction images of the knee were provided. Individualized dose optimization techniques were used for this CT. COMPARISON: None. FINDINGS: Standard protocol for the preoperative planning for the MakoPlasty robotic knee surgery was performed. Osteopenia with mild arthrosis of the right hip, mild tricompartmental arthrosis of the right knee and mild arthrosis of the right tibiotalar joint. CT/Extremity Lower without Contra IMPRESSION: Preoperative MakoPlasty Robotic knee surgical CT evaluation with findings as described above. Electronically Signed: Chip Lebron MD at 9:30 EDT ,
== END | disposition home or self-care (01) ==
LOC: CT 07:37
PROVIDERS: PCP Internal Medicine; Referring Provider Specialist; Visit Provider Specialist
DX: M17.31 Unilateral post-traumatic osteoarthritis, right knee (principal); M25.361 Other instability, right knee; M25.461 Effusion, right knee
CPT/HCPCS: 73700

== ENCOUNTER 2024-08-06 15:07 | Observation (INO) | payer MEDICARE, SELFPAY ==
--- NOTE | 2024-07-16 07:33 | EKG12_ITS ---
Test Reason : PRE OP Blood Pressure : / mmHG Vent. Rate : 073 BPM Atrial Rate : 073 BPM P-R Int : 182 ms QRS Dur : 158 ms QT Int : 420 ms P-R-T Axes : 016 -20 105 degrees QTc Int : 462 ms Normal sinus rhythm Left bundle branch block Abnormal ECG Confirmed by Kaushal Martin ([id number]), purchase request editor MARY LUCIANO ([id number]) on 07/16/2024 1:25:06 PM Referred By: VICTOR HUGO Confirmed By:Kaushal Martin
[2024-07-16 08:57] LABS: Absolute Lymphocyte Count 1.93 X10^3/uL (0.83-4.51); Absolute Neutrophil Count 5.7 X10^3/uL (2.0-7.7); Basophil# 0.12 X10^3/uL; Basophil% 1.3 % (0-1); Eosinophil# 0.42 X10^3/uL; Eosinophils% 4.6 % (0-5); Hematocrit 47.4 % (40-54); Hemoglobin 14.7 g/dL (13.0-16.5); Lymphocyte # 1.93 X10^3/ul (0.83-4.51); Lymphocyte % 21.1 % (19-41); Mean Corpuscular Hgb 29.3 pg (27.0-32.0); Mean Corpuscular Volume 94.4 fL (80-94); Mean Platelet Vol. 10.4 fl (6.2-12.0); Monocyte# 0.92 X10^3/uL; Monocyte% 10.1 % (0-10); NRBC Flagged by Analyzer 0 % (0-5); Neutrophil # 5.68 X10^3/uL (2.7-7.7); Platelet Count 229 K/mm3 (150-450); RBC Distribution Width CV 13.8 % (11.6-14.6); RBC Distribution Width SD 48.3 fl (35.1-43.9); Red Blood Count 5.02 M/mm3 (4.6-6.2); White Blood Count 9.2 K/mm3 (4.4-11.0)
[2024-07-16 09:16] LABS: Albumin, Serum 3.6 g/dL (3.2-5.0); Anion Gap 7 (5-15); BUN 21 mg/dL (7-18); BUN/Creat Ratio 18.1 RATIO (10-20); Calcium,Total 9.4 mg/dL (8.5-10.1); Chloride 106 mmol/L (98-107); Creatinine, Serum 1.16 mg/dL (0.70-1.30); EST Glomerular Filtration Rate 66 mL/min (>60); Est Glom Filt Rate - Afr Amer 79 mL/min (>60); Glucose 120 mg/dL (74-106); Potassium 4.3 mmol/L (3.5-5.1); Sodium Level 138 mmol/L (136-145)
[2024-07-16 09:24] LABS: Hemoglobin A1c 6.3 % (3.8-5.6)
[2024-07-17 08:09] LABS: Magnesium 2.1 mg/dL (1.6-2.6)
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
[2024-08-06] VITALS (10 sets, daily range): BP systolic 94–129; BP diastolic 48–81; PULSE 66–81; RESP 16–18; TEMP 36.1–36.7; O2SAT 92–96; BMI 36.2
--- NOTE | 2024-08-06 10:51 | PRE.ANES_ITS ---
ASA Classification* ASA Classification ASA Classification: 3 Assessment & Plan Anesthesia* Anesthesia Assessment Anesthesia Assessment: Discussed sedation and/or anesthesia options, risks, benefits, and alternatives with patient/parents/legal guardian/POA. Questions invited. The patient/parents/legal guardian/POA seems to understand and agrees to proceed with anesthesia plan. Reviewed the physical assessment, medical history, allergy history and patient home medications list prior to surgery/procedure/anesthetic and documented any changes. Performed airway and anesthesia risk assessments. Anesthesia Type Anesthesia Type: General (consented for adductor canal block. EF 35%) Anesthesia Focused Assessment* Airway Assessment Mouth opens: >3 cm Mallampati Score: II Focused Labs Anesthesia Preop lab: CBC WBC 9.2 K/mm3 (4.4-11.0) 07/16/24 08:18 RBC 5.02 M/mm3 (4.6-6.2) 07/16/24 08:18 Hgb 14.7 g/dL (13.0-16.5) 07/16/24 08:18 Hct 47.4 % (40-54) 07/16/24 08:18 Plt Count 229 K/mm3 (150-450) 07/16/24 08:18 CHEMISTRY Potassium 4.3 mmol/L (3.5-5.1) 07/16/24 08:18 Sodium 138 mmol/L (136-145) 07/16/24 08:18 Magnesium 2.1 mg/dL (1.6-2.6) 07/16/24 08:18 BUN 21 mg/dL (7-18) H 07/16/24 08:18 Creatinine 1.16 mg/dL (0.70-1.30) 07/16/24 08:18 Glucose 120 mg/dL (74-106) H 07/16/24 08:18 POC Glucose 130 mg/dL (70-110) H 02/11/21 07:42 TSH 0.26 uIU/mL (0.358-3.74) L 12/04/19 08:59 COAG PT 13.3 SECONDS (11.7-14.9) 09/07/23 15:45 Pre-Assessment Diagnosis/Proposed Procedure Planned Operative Procedure(s): ROBOTIC ASSISTED RIGHT TOTAL KNEE ARTHROPLASTY Anesthesia History 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 When Was Last Pacemaker Check QUESTION #4 FULL TEXT: You/Your Family Experience fever (hyperthermia) with Anesthesia Last Oral Intake Last Oral intake: Last Oral Intake NPO since Meds taken in AM with sips of water? Meds patient instructed to take am of surgery PONV PONV - watch parts grinder: PONV - watch parts grinder Female No 07/11/24 10:32 HX of Motion Sickness No 07/11/24 10:32 HX of N/V After Surgery No 07/11/24 10:32 Non-Smoker Yes 07/11/24 10:32 Duration of Surgery greater Yes 07/11/24 10:32 than 60 minutes Number of Risk Factors 2 07/11/24 10:32 PONV Score Moderate Risk 07/11/24 10:32 Height & Weight Height & Weight: Anesthesia: Height & Weight Height 5 ft 9 in 08/01/24 12:55 Respiratory Assessment Respiratory Assessment - watch parts grinder: Respiratory Tract Infection Hx - watch parts grinder Hx Respiratory Tract Infection No 07/11/24 10:32 STOP Sleep Apnea STOP Sleep Apnea - watch parts grinder: STOP Sleep Apnea - watch parts grinder Hx Hypertension Yes: CONTROLLED WITH MED 07/11/24 10:32 Hx Sleep Apnea Yes 07/11/24 10:32 CPAP Yes: WITH 2L O2 07/11/24 10:32 BIPAP No 07/11/24 10:32 Do you snore loudly (louder than talking or can be heard Do you often feel tired/ fatigued/ sleepy during daytime? Has anyone observed you stop breathing during sleep? STOP Results Positive 07/11/24 10:32 QUESTION #5 FULL TEXT : Do you snore loudly (louder than talking or can be heard through closed doors)? 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 Specify any problems Hx of Preganancy in last 3 N/A 07/11/24 10:32 Months Nurse Filling Out Transfusion DSCHRIBER 07/11/24 10:32 & Questions: Date: 07/11/24 07/11/24 10:32 Time: 10:37 07/11/24 10:32 Patient unable to answer at this time (ie. confused, unrespo /Reproduction History /Reproductive History - watch parts grinder: /Reproductive Hx- watch parts grinder Hx Now No 07/11/24 10:32 Gestational Age (in weeks): EDC: Hx Hx Para Hx Section SAB No 07/11/24 10:32 Active Medications Active Medications: Current Medications Generic Name Dose Route Start Last Admin Trade Name Freq PRN Reason Stop Dose Admin Lactated Ringer's 1,000 mls @ 999 mls/hr 08/06/24 10:00 IV 08/06/24 11:00 .Q1H1M CHIN Lactated Ringer's 1,000 mls @ 999 mls/hr 08/06/24 11:00 IV 08/06/24 12:00 .Q1H1M CHIN Lactated Ringer's 1,000 mls @ 125 mls/hr 08/06/24 12:00 IV 08/06/24 19:59 .Q8H CHIN Insulin Human Lispro 1 - 6 unit 08/06/24 10:00 Insulin Lispro 100 Unit/Ml Insuln.Pen SC 08/06/24 16:00 Q4H PRN PRN BG>/= 180, SEE PROTOCOL Protocol [facility] Medical History Preoperative evaluation to rule out surgical contraindication Depression Alcohol use Thyroid disease Diabetes Arthritis Prostate disease Anemia High cholesterol Back pain Injury of back Injury of head and neck History of hiatal hernia History of GI bleed Gastric reflux Former smoker BiPAP (biphasic positive airway pressure) dependence Leg cramps History of pain when walking History of edema History of Holter monitoring History of echocardiogram History of stress test Cardiology follow-up encounter Generalized anxiety disorder RUTHY treated with BiPAP Shortness of breath Right knee pain Situational anxiety Health care maintenance Obesity Head injury Headache Concussion Bleeding ulcer Cervical radiculopathy Routine health maintenance Peripheral arterial disease Chronic systolic (congestive) heart failure History of TIA (transient ischemic attack) History of carotid artery dissection 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 Type 2 diabetes mellitus RUTHY (obstructive sleep apnea) Lumbago Cardiomyopathy PVD (peripheral vascular disease) BPH (benign prostatic hyperplasia) Arthritis GI bleed Duodenal ulcer Hypothyroidism HLD (hyperlipidemia) Gastroesophageal reflux disease Benign essential HTN Home Medications ?Medication ?Instructions ?Recorded ?Last Taken ?Type blood sugar diagnostic (FreeStyle #100 strips 11/20/19 Unknown Rx Lite Strips) blood-glucose meter 02/04/21 Unknown History disability placard #1 ea 07/08/21 Unknown Rx lancets 28 gauge #100 ea 10/31/23 Unknown Rx dapagliflozin propanediol 10 mg 10 mg PO DAILY CHOLESTEROL #30 tabs 12/23/23 08/05/24 Rx tablet (Farxiga) sertraline 25 mg tablet 25 mg PO DAILY DEPRESSION #30 tabs 02/03/24 08/05/24 Rx metformin 500 mg tablet,extended 500 mg PO DAILY DIABETES #90 tabs 05/03/24 08/05/24 Rx release 24 hr atorvastatin 40 mg tablet 40 mg PO QHS CHOLESTEROL 07/11/24 08/05/24 History carvedilol 12.5 mg tablet 12.5 mg PO BID HEART 07/11/24 08/06/24 08:30 History clopidogrel 75 mg tablet 75 mg PO DAILY BLOOD THINNER 07/11/24 07/30/24 History levothyroxine 125 mcg tablet 125 mcg PO QHS THYROID 07/11/24 08/05/24 History pantoprazole 40 mg tablet,delayed 40 mg PO QHS GERD 07/11/24 08/05/24 History release tamsulosin 0.4 mg capsule 0.4 mg PO QHS PROSTATE 07/11/24 08/05/24 History spironolactone 25 mg tablet 25 mg PO DAILY WATER #90 tabs 07/25/24 08/05/24 Rx lisinopril 10 mg tablet 10 mg PO DAILY 08/06/24 08/06/24 08:30 History Allergy/AdvReac Type Severity Reaction Status Date / Time Penicillins Allergy Hives Verified 08/06/24 10:47 tetracycline Allergy Hives Verified 08/06/24 10:47 losartan AdvReac Severe lightheaded Verified 08/06/24 10:47 ness Family History Father Cancer lung Myocardial infarction Mother Cancer liver Diabetes Surgical History H/O tooth extraction History of cardiac catheterization History of esophagogastroduodenoscopy (EGD) Hx of colonoscopy Hx of left cataract extraction Hx of right cataract extraction Hx of arthroscopy of left knee Hx of tonsillectomy Hx of arthroscopy of right knee (~07/2023) S/P insertion of iliac artery stent Social History Smoking Status: Former smoker Tobacco: How many years used: 40 how long ago did patient quit smokin alcohol intake: current alcohol intake frequency: a few times a month substance use type: does not use caffeine: Yes Type: coffee Number of servings: 2 what type of physical activity do you participate in: none Review of Systems (Anesthesia) ROS Narrative System reviewed and no additional complaints, except as documented.
[2024-08-06] MEDS: Lactated Ringers 1,000 ML 999 ML IV (10:59)
[2024-08-06] MEDS: Gabapentin 600 MG Tablet PO (11:00)
[2024-08-06] MEDS: Magnesium 1 GM over 15 mins IV (11:00)
[2024-08-06] MEDS: Acetaminophen 500 MG Tablet 1000 MG PO ×2 (11:01→21:01)
[2024-08-06 11:25] LABS: Bedside Glucose 100 mg/dL (74-106)
--- NOTE | 2024-08-06 12:30 | KNEE_PTH ---
PATIENT: MAYE BAEZ LOC: [facility] U#:[id number] AGE/SX: 73/M ROOM: NC314 RE08/06/[address]: Dr. Linden Hughes MD : 1950 BED: 1 DIS: 08/07/2024 SPEC #: [id number] RECD: 08/07/24 10:11 STATUS: ARIK REAndrew #: [id number] MANNY: 08/06/24 12:[address]: Linden Hughes DEPT: SURGICAL PATHOLOGY RECD BY: Mable Aviles ENTERED: 08/07/24 11:14 SP TYPE: TOTAL KNEE OTHR DR: DO Dr. Lorenza Cruz MD Dr. Efewongbe Oleghe, MD Dr. Nicholas F Kotsonis, MD Tissues: Knee, NOS Procedures: Decalcification bone/plaque Surgery Specimen Level IV HEADER OPERATION: Robotic assisted right knee arthroplasty PRE-OP DIAGNOSIS: Right knee osteoarthritis TISSUE SUBMITTED: Right knee: bone and tissue MICROSCOPIC DIAGNOSIS Bone and soft tissue, right knee, total knee replacement/resection: Pieces of bone with degenerative osteoarthritic changes. Fibroadipose tissue, fibroconnective tissue and reactive synovial tissue. : 08/10/2024 MICROSCOPIC DESCRIPTION Slides are reviewed. GROSS DESCRIPTION Received is one container designated bone and soft tissue right knee. The specimen consists of multiple fragments of norman-yellow bone measuring in aggregate 11.0 x 8.0 x 3.0 cm. Also in the specimen container are pieces of soft tissue attached to the bone measures in aggregate 3.0 x 3.0 x 0.6cm. A number of bony fragments contain articular surfaces consistent with tibial plateau and femoral condyle and displaying prominent osteophyte formation, eburnation and bone erosion. Electric Shipyard Operator sections are submitted in two cassettes as follows: 1 - soft tissue, 2 - bone after decalcification. / SAIDA. 08/07/2024 TC:5 CPT: 94593, 21412
[2024-08-06] MEDS: Cefazolin 2 GM in Syringe IV (13:56)
[2024-08-06] MEDS: dexAMETHasone 10 MG/ML Vial IV (14:09)
[2024-08-06] MEDS: TXA in NS 100ml (Placed in Wound) OPERA.SITE (14:42)
[2024-08-06] MEDS: JPS (Morphine 10mg/ml) OPERA.SITE (14:49)
--- NOTE | 2024-08-06 15:02 | PCM.OPRPT ---
Report of Operation Date of Procedure: 08/06/24 Pre-Operative Diagnosis: Right knee primary osteoarthritis Post-Operative Diagnosis: Right knee primary osteoarthritis Surgery/Procedure Performed:: Right minimally invasive robotic total knee replacement Description of Surgical Findings:: Stable knee with good patella tracking Surgeon: Linden Hughes court collections officer: Roland Gonzalez Type of Anesthesia: General Anesthesiologist: Terrence Mulligan Special Medications: 2 g Ancef, 1 g TXA at incision, 1 g TXA closure, 10 mg Decadron, joint cocktail (5 mg Duramorph, 30 mL of 0.5% Ropivicaine, 1000 units of epinephrine, 30 mg of Toradol) Specimen's removed: Bony cuts Estimated Blood Loss (mL): 75 Fluids Replaced: 1200 mL crystalloid Description of Procedure: Implants used: 1. Tarpley size 5 triathlon cruciate retaining distal femoral press-fit component 2. Tarpley size 6 press-fit tritanium tibial baseplate 3. Tarpley X3 10 mm CS polyethylene Brief history operative indications: 73-year-old M with history of right knee osteoarthritis with radiographic findings with loss of joint space, osteophyte formation and subchondral sclerosis. Failed conservative measures as mentioned in the H&P. Discussion of total knee arthroplasty as well as risk and benefits were discussed the patient including but not limited to blood loss, DVTs, PEs, neurovascular damage, general risk of anesthesia including loss of life, and stiffness or instability were discussed with patient. Patient demonstrated understanding and was able to sign informed consent. Procedure: On the date of procedure patient's right lower extremity was marked in the preoperative area. The patient was then taken back to the operating room where the patient was placed on the table in the supine position. All bony prominences were identified a well-padded. Anesthesia assumed control of the C-spine and airway and remained controlled throughout the remainder of the procedure. A tourniquet was placed on the right upper thigh and the leg was prepped in a sterile fashion. The surgeon then scrubbed at this time .Upon reentering the room right lower extremity was draped in a standard orthopedic fashion. A timeout was then called and everyone agreed upon the side, the site, the procedure to be performed, patient's identity and antibiotics given. Esmarch bandage was used to exsanguinate the extremity and the tourniquet was placed up to 250 mmHg with the knee in flexion. A midline skin incision was made and sharp dissection was taken down through skin subcutaneous tissue and fat. The standard medial parapatellar incision was made and the patella was subluxed laterally. An Appropriate deep MCL release was done and the fat pad was resected. Our attention was then directed to the patella. The patella was everted and inspected and found to be appropriate to retain. The knee was then flexed up in 2 femoral pins were placed inside the incision and 2 tibial pins were placed outside the incision in the medial tibia bicortically. Once this was completed the 2 checkpoints in the femur and tibia were placed. Knee was then flexed up and the bony landmarks were registered. Once this was completed knee was taken through range of motion and manually stressed allowing us to a plan for an appropriate tibial cut. The robotic arm was brought into the field sterilely and checkpoint and saw were registered. Based on the patient's deformity the tibial cut was made neutral to the tibial axis. At this time the tensioner was then placed in the joint and ligament tension was checked at 90 degrees and full extension. Based on the patient's ligamentous tension appropriate adjustments were made to the operative plan and ligament releases were done. Once we were happy with our operative plan with balanced flexion and extension gaps our attention was directed to the femur. The robot was brought into the field sterilely and registered. Posterior condylar cuts, anterior chamfer cuts and anterior cuts were appropriately made for a size 5 femur. When these were completed the saws were switched out in the distal femoral and posterior chamfer cuts were made. Protecting the soft tissue throughout this time. A size 6 tibial base plate was selected. the knee was flexed to 90 degrees and the soft tissues and posterior osteophytes were removed from the joint. 40 cc of the periarticular injection was injected into the posterior medial corner of the joint. The appropriate trials were then placed on the femur and tibia. A trial polyethylene was trialed to ensure proper balancing and stability of the knee. The appropriate tibial internal rotation was then marked with a bovie. Our attention was then directed to the patella. Patellar tracking was checked and deemed appropriate. Once we were happy lug holes were drilled for the femur and trial components were removed. the tibia was subluxed and pinned into place and the keel was punched and drilled appropriately. Final components were verified and opened, The wound was copiously irrigated with normal saline. The components were impacted CS into place starting with the tibia, femur. The trial poly component was placed and the knee was placed in full extension. All excess cement was removed in the process. Once the cement had cured the tracking, alignment and balance were verified and a size 10 mm CS polyethylene component was placed. Once the final components were placed a 3-minute dilute Betadine lavage was performed followed by an Irrisept lavage was performed and the wound was copiously irrigated with normal saline solution and the periarticular injection was given. The wound was closed in a layer vigil fashion using #1 vicryl interrupted sutures for the arthrotomy, 2-0 interrupted Vicryl suture for the subcuticular layer and herlinda for final skin closure. A sterile compressive dressing was then placed. The patient was then awakened from anesthesia, transferred to the [facility] and transferred to the PACU for recovery. Post op plan DVT ppx: ASA 81mg BID, thigh high compression stockings Follow up: in office in 2 weeks for wound check PT: to start POD #0 at hospital, outpatient PT should be arranged. My physician human resources benefits assistant was a vital part of this case. He was important in appropriate retraction during the case, and protection of soft tissues during bony cuts. His intimate knowledge of the case and my steps aided in safe and expedient completion of the procedure as well as appropriate position of the leg during the case. He was also vital in assisting with closure under my direct supervision. Due to the complexity of this case robotic arm was used to assist in the surgery to improve accuracy and clinical outcomes. Complications No intraoperative complications Admit VTE Documentation VTE Present on Admission: No VTE Mechan Device Prophylaxis: SCD's and Thigh High PRANAV Hose VTE Pharm Prophylaxis ordered?: Yes
--- NOTE | 2024-08-06 15:07 | RAD_ITS ---
STUDY: X-RAY - RIGHT KNEE REASON FOR EXAM: Male, 73 years old. post op -- AP and Lateral xray of operative knee in PACU TECHNIQUE: 2 view(s) of the knee. COMPARISON: None. Findings: There is a recent total knee arthroplasty. The femoral and tibial components appear in satisfactory position. There has been patellar resurfacing. There is soft tissue air consistent with the recent surgery. The visualized femoral, tibial, and fibular shafts are unremarkable. RAD/Knee 1 or 2 Views IMPRESSION: Satisfactory appearance of a total knee arthroplasty. Electronically Signed: Larry Topete MD at 17:08 EDT ,
[2024-08-06] MEDS: Lactated Ringers 1,000 ML 125 ML IV (16:09)
[2024-08-06 16:40] LABS: Bedside Glucose 134 mg/dL (74-106)
--- NOTE | 2024-08-06 17:06 | PCM.POSTANE2 ---
Anesthesia Postop Eval I Sum Anesthesia Postop Eval I Summary Anesthesia Postop Eval I Summary: Anesthesia Postop Eval I: Assessment Summary Airway patent Spontaneous unlabored respirations Mental status nausea Vomiting Anesthesia Postop Eval I: Fluid Summary Crystalloid volume administer (ml) Colloids volume administered ( ml) Blood Product volume administered (ml) Total IV fluid infused Anesthesia Postop Eval I: Summary Notes Anesthesia Complication Anesthesia Complication Comment: Post-operative progress note Anesthesia: Postop Eval II Evaluation Mental status: Awake and Calm Pain Level: 1 nausea: No Vomiting: No Complications Anesthesia Complication: No
--- NOTE | 2024-08-06 17:11 | PCM.POST.ANE ---
Anesthesia: Postop Eval I Current Vital Signs Temperature: 97 F Pulse Rate: 75 Blood Pressure: 101/48 Respiratory Rate: 16 Pulse Ox: 96 Oxygen Delivery Method: Room Air Assessment Airway patent: Yes Spontaneous unlabored respirations: Yes Mental status: Awake and Calm nausea: No Vomiting: No Anesthesia Complication: No Fluid Hydration Crystalloid volume administer (ml): 1,200 Total IV fluid infused: 1,200 Progress Note Anesthesia document: Postop Eval 1 completed: Yes
[2024-08-06] MEDS: Ensure Surgery 237 ML LIQUID PO (18:26)
[2024-08-06] MEDS: Aspirin 81 MG TAB.CHEW PO (18:26)
[2024-08-06] MEDS: Cefazolin 1 GM/50 ML BAG IV (20:56)
[2024-08-06] MEDS: Atorvastatin Calcium 40 MG Tablet PO (20:58)
[2024-08-06] MEDS: Carvedilol 12.5 MG Tablet PO (20:58)
[2024-08-06] MEDS: Pantoprazole Sodium 40 MG Tablet PO (20:59)
[2024-08-06] MEDS: Tamsulosin HCl 0.4 MG Capsule PO (20:59)
[2024-08-06] MEDS: Senna/Docusate Sodium 1 Tablet 2 TABLET PO (20:59)
[2024-08-06] MEDS: Levothyroxine 125 MCG Tablet PO (21:00)
[2024-08-07] MEDS: oxyCODONE 5 MG Tablet PO ×3 (00:56→14:51)
[2024-08-07 01:00] VITALS: BP 109/64; PULSE 79; RESP 18; TEMP 36.6; O2SAT 95
[2024-08-07 04:57] VITALS: BP 96/59; PULSE 72; RESP 16; TEMP 36.6; O2SAT 96
[2024-08-07] MEDS: Acetaminophen 500 MG Tablet 1000 MG PO ×2 (04:59→14:52)
[2024-08-07] MEDS: 0.9% Saline Lock 10 ML Syringe IV (04:59)
[2024-08-07] MEDS: Cefazolin 1 GM/50 ML BAG IV (05:01)
[2024-08-07 06:47] LABS: Hematocrit 37.8 % (40-54); Hemoglobin 11.9 g/dL (13.0-16.5); Mean Corp Hgb Conc 31.5 g/dL (32-36); Mean Corpuscular Hgb 30.5 pg (27.0-32.0); Mean Corpuscular Volume 96.9 fL (80-94); Mean Platelet Vol. 11.1 fl (6.2-12.0); Platelet Count 182 K/mm3 (150-450); RBC Distribution Width SD 49.2 fl (35.1-43.9)
[2024-08-07 07:29] LABS: Anion Gap 6 (5-15); BUN 22 mg/dL (7-18); BUN/Creat Ratio 16.9 RATIO (10-20); Calcium,Total 8.6 mg/dL (8.5-10.1); Chloride 107 mmol/L (98-107); EST Glomerular Filtration Rate 58 mL/min (>60); Est Glom Filt Rate - Afr Amer 70 mL/min (>60); Estimated Creatinine Clearance 63.16 ml/min; Glucose 151 mg/dL (74-106); Potassium 5.3 mmol/L (3.5-5.1); Sodium Level 136 mmol/L (136-145)
[2024-08-07 07:55] VITALS: O2SAT 96
[2024-08-07 08:10] VITALS: BP 103/63; PULSE 64; RESP 18; TEMP 36.5; O2SAT 98
[2024-08-07] MEDS: Senna/Docusate Sodium 1 Tablet 2 TABLET PO (08:22)
[2024-08-07] MEDS: Aspirin 81 MG TAB.CHEW PO (08:23)
[2024-08-07] MEDS: Empagliflozin 25 MG Tablet PO (08:23)
[2024-08-07] MEDS: metFORMIN (XR) 500 MG Tablet PO (08:24)
[2024-08-07] MEDS: Sertraline 50 MG Tablet 25 MG PO (08:24)
[2024-08-07] MEDS: Clopidogrel Bisulfate 75 MG Tablet PO (08:24)
[2024-08-07] MEDS: Famotidine 20 MG Tablet PO (08:25)
--- NOTE | 2024-08-07 08:29 | PN.HOSP_ITS ---
Reason for Visit Reason for Visit: Diagnoses Encounter for other preprocedural examination (08/06/24) Subjective Subjective Patient is a 73-year-old gentleman who underwent robotic assisted right total knee arthroplasty on 08/07/2024. Hospital service was consulted for management of patient medical comorbidities Objective Data Objective Data Vital Signs: Vital Signs Temp Pulse Resp BP Pulse Ox O2 Del Method O2 Flow Rate 97.7 F L 64 18 103/63 98 Nasal Cannula 2 08/07/24 08:10 08/07/24 08:10 08/07/24 08:10 08/07/24 08:10 08/07/24 08:10 08/07/24 08:10 08/07/24 08:10 FiO2 32 08/06/24 16:21 Oxygen Flow Rate (L/min) 2 Oxygen Delivery Method Nasal Cannula Weight: 111.3 kg Body Mass Index (BMI) 36.2 Intake & Output: Intake and Output for Last 24 Hours 08/05/24 08/06/24 08/07/24 23:59 23:59 23:59 Intake Total 1172 / 1172 1050 / 1050 Output Total Balance 1172 / 1172 1049 / 1049 Lab / Micro Data 08/07/24 06:19 08/07/24 06:19 Labs: Laboratory Results - last 24 hr 08/06/24 10:53: POC Glucose 100 08/06/24 16:17: POC Glucose 134 H 08/07/24 06:19: WBC 14.0 H, RBC 3.90 L, Hgb 11.9 L, Hct 37.8 L, MCV 96.9 H, MCH 30.5, MCHC 31.5 L, RDW Std Deviation 49.2 H, RDW Coeff of Carlitos 14.0, Plt Count 182, MPV 11.1, Sodium 136, Potassium 5.3 H, Chloride 107, Carbon Dioxide 23.0, Anion Gap 6, BUN 22 H, Creatinine 1.30, Estim Creat Clear Calc 63.16, Est GFR (MDRD) Af Amer 70, Est GFR (MDRD) Non-Af 58 L, BUN/Creatinine Ratio 16.9, G lucose 151 H, Calcium 8.6 Micro: Microbiology 07/16/24 08:18 Swab (Method) Nasal Screen MRSA/MSSA - Final Radiography Diagnostic Testing: Radiology Impression Knee X-Ray 08/06/24 15:07 IMPRESSION: Satisfactory appearance of a total knee arthroplasty. Electronically Signed: Larry Topete MD at 17:08 EDT , Physical Exam Narrative GENERAL: cooperative HEENT: Atraumatic; normocephalic EYES; Anicteric, Normal Conjunctiva NECK; supple, normal thyroid, RESPIRATORY: Diminished to auscultation CARDIOVASCULAR: Regular S1 S2, GI: soft, normoactive bowel sounds, : No Renal angle tenderness; EXTREMITIES: No edema, no clubbing, MUSCULOSKELETAL: no muscle wasting NEURO: Awake; no lateralizing signs. SKIN: No Rash PSYCH; Flat affect Assessment & Plan Assessment/Plan (1) Status post total right knee replacement: (2) Hyperkalemia: PLAN: Plan Patient is a 73-year-old gentleman who underwent robotic assisted right total knee arthroplasty on 08/07/2024. Hospital service was consulted for management of patient medical comorbidities 1. Status post robotic assisted knee arthroplasty ? By Dr. Hughes on 07/08/2024 patient postoperative orders regarding PT OT DVT prophylaxis as well as pain management deferred to primary service 2. Hyperkalemia ? Secondary to patient being on potassium sparing diuretics. Case was discussed with the orthopedic service plan is for patient Aldactone to be held for a week with repeat labs obtained as outpatient 3. Hypertension ? Blood pressure controlled, home medications continued with dose adjustment as needed 4. Dyslipidemia ?Patient is on statin therapy, continued at home dose 5. Hypothyroidism ? Patient is on levothyroxine home dose continued 6. Class II obesity with BMI of 36.2 7. GERD ? On PPI 8. BPH with lower urinary obstructive symptoms - Patient treated with tamsulosin 9. DVT prophylaxis ? As per primary service Time spent in the patient's overall evaluation,decision-making process, review of diagnostic data, adjustment of management, discussion with other providers, nursing nursing and ancillary staff involved in patient's care documentation, 36 Minutes Charges/Coding Visit Charges Inpatient E&M: 14866 Subs Hosp L2
--- NOTE | 2024-08-07 08:58 | CASEMGMT ---
Social Work- Pt does not have HCPOA and does not want information or education regarding. BINU Garcia
--- NOTE | 2024-08-07 09:04 | PCM.PN.ORT ---
Subjective Subjective The patient was sitting in bed upon examination. Patient denies any chest pain, shortness of breath, dizziness, lightheadedness, nausea or vomiting, or calf pain. Pain is controlled on medications. No adverse overnight events. Patient has been able to urinate on his own. He is doing well this morning. He has no significant complaints. Patient did have some elevated potassium on labs this morning. Case has been discussed with medicine. Objective Data Objective Data Vital Signs: Vital Signs Temp Pulse Resp BP Pulse Ox O2 Del Method O2 Flow Rate 97.7 F L 64 18 103/63 98 Nasal Cannula 2 08/07/24 08:10 08/07/24 08:10 08/07/24 08:10 08/07/24 08:10 08/07/24 08:10 08/07/24 08:10 08/07/24 08:10 FiO2 32 08/06/24 16:21 Oxygen Flow Rate (L/min) 2 Oxygen Delivery Method Nasal Cannula Weight: 111.3 kg Body Mass Index (BMI) 36.2 Intake & Output: Intake and Output for Last 24 Hours 08/05/24 08/06/24 08/07/24 23:59 23:59 23:59 Intake Total 1172 / 1172 1050 / 1050 Output Total Balance 1172 / 1172 1049 / 1049 Lab / Micro Data 08/07/24 06:19 08/07/24 06:19 Labs: Laboratory Results - last 24 hr 08/06/24 10:53: POC Glucose 100 08/06/24 16:17: POC Glucose 134 H 08/07/24 06:19: WBC 14.0 H, RBC 3.90 L, Hgb 11.9 L, Hct 37.8 L, MCV 96.9 H, MCH 30.5, MCHC 31.5 L, RDW Std Deviation 49.2 H, RDW Coeff of Carlitos 14.0, Plt Count 182, MPV 11.1, Sodium 136, Potassium 5.3 H, Chloride 107, Carbon Dioxide 23.0, Anion Gap 6, BUN 22 H, Creatinine 1.30, Estim Creat Clear Calc 63.16, Est GFR (MDRD) Af Amer 70, Est GFR (MDRD) Non-Af 58 L, BUN/Creatinine Ratio 16.9, Glucose 151 H, Calcium 8.6 Micro: Microbiology 07/16/24 08:18 Swab (Method) Nasal Screen MRSA/MSSA - Final Radiography Diagnostic Testing: Radiology Impression Knee X-Ray 08/06/24 15:07 IMPRESSION: Satisfactory appearance of a total knee arthroplasty. Electronically Signed: Larry Topete MD at 17:08 EDT Reading Location ID and State: [id number] [facility] , Service support , Physical Exam Narrative Vital signs stable and afebrile. SCDs and PRANAV hose are in place bilaterally Patient is able to plantarflex and dorsiflex actively. Sensation is intact to light touch to saphenous, sural, superficial and deep peroneal, and tibial distribution. Dressings are clean dry and intact. Negative Homans bilaterally, negative signs and symptoms of DVT. Const alert, oriented x3 and no apparent distress Assessment & Plan Assessment/Plan (1) Status post total right knee replacement: PLAN: 1. S/P robotic assisted right total knee arthroplasty POD #1 2. Continue Pain Medications: Tylenol, oxycodone. Due to patient's medical history we are not proceeding with nonsteroidal anti-inflammatory postoperatively. He is resuming his Plavix postoperatively. 3. DVT Prophylaxis: Take 81 mg aspirin twice daily for 4 weeks postoperatively for DVT prophylaxis. Patient denies past history of DVT or pulmonary embolism. 4. PT/OT: Weightbearing as tolerated 5. H & H: 11.9/37.8, asymptomatic. Vitals are stable. Denies any dizziness or lightheadedness. 6. Reactive leukocytosis: 14.0, Afebrile. Patient did receive Decadron intraoperatively. No clinical signs of infection. 7. Postoperative hyperkalemia: Potassium is currently 5.3. He is asymptomatic. Case was discussed with medicine. Medicine recommends patient's stop his spironolactone for 1 week. Follow-up with primary care physician with outpatient lab work. Lab work order will be placed on chart. I discussed case with social worker psychiatric in which they will get a 1 week follow-up with the primary care physician. Defer to the primary care physician with resuming medication. 8. Encouraged Incentive Spirometry 9. Patient is aware of postoperative constipation that can occur from 1-3 days postoperatively. Will continue with senna 2 tablets twice daily until first bowel movement. Patient was advised if not having a bowel movement after day 3 she is to contact orthopedics so appropriate change can be made. Patient voiced understanding. 10. Continue postoperative medical treatment per medicine 11. Disposition: Plan will be for discharge home today as long as patient remains medically stable, tolerates therapy, and pain is adequately controlled. Case was discussed with medicine and will follow-up outpatient with primary care physician with labs. Lab order will be placed on chart for the hyperkalemia. Patient has been able to urinate on his own. He will continue his Flomax. Patient will resume his Plavix postoperatively. He would like his medications E scribed to [facility] pharmacy in [facility]. He will follow-up per postoperative instructions. Upon discharge he will contact our office with any concerns or questions. He has outpatient physical therapy established. I have reviewed the [employer] [facility] (OARRS) report for this patient for refill pattern and other prescriber involvement as part of the appropriate surveillance for the provision of acute and chronic controlled medications. The report was requested and reviewed on the date of this entry and was considered in the prescribing process. This dictation was created using voice recognition software. Phonetic and/or grammatical errors may exist.
--- NOTE | 2024-08-07 09:09 | PCM.DC ---
Discharge Instructions Diet Discharge Diet: No restrictions Activity Discharge Activity: May Not Drive (No driving for 6 weeks postoperatively. Must also be off all narcotics and able to walk 100 feet without the use of cane or walker.) May shower in (days): 1 (Please turn dressing away from water. Okay to get wet as long as dressing is intact to skin.) Ice area for (Minutes): 20 (Every 1-2 hours while awake. Please place barrier between the skin and ice pack.) Weight Bearing Status: Weight bearing as tolerated Keep extremity elevated above heart level: Operative Extremity Dressing / Incision Call your doctor if your incision/area has: Continuous Slow Oozing, Sudden Increased Bleeding, Increased Pain/ Swelling, Increased Redness and Foul Smelling Discharge Call your doctor if you observe: Fever of 101 or Higher, Coldness, Increased Pain, Numbness or Tingling, Change in Color, Shortness of breath, Chest pain, Calf discomfort and Uncontrolled pain Remove Dressing in: 4 days (Okay to remove dressing on August 11, 2024) Additional Dressing/Incision Instructions:: Follow [facility] Post-op Instructions. Follow-up with your primary care physician as scheduled. Recommend getting the lab work 1 day prior to primary care physician appointment. Once postoperative dressing has been removed only use gentle soap and water over the incision. Do not use any ointments, Neosporin, salves, alcohol pads over the incision for 6 weeks postoperatively. Do not submerge underwater for 6 weeks postoperatively. Continue with PRANAV hose/elastic stockings for 2 weeks postoperatively. May remove at nighttime but needs to be placed back on the leg during the day. Do NOT use alcohol with narcotic pain medication. Do NOT make important decisions while taking narcotic medication. If you have problems with taking your medication (rash, itching, nausea, etc.) call the office at once. Follow Up Care Test Results: Test results from this visit will be discussed in further detail at your follow-up appointment, if applicable. Discharge Plan Admission Admit Date/Time: 08/06/24 15:07 Attending Provider: Linden Hughes Primary Care Provider: Suki Brewer Consulting Providers: Gab Angelo; Lorenza Elias; Wild Ovalles Discharge Orders/Prescriptions Prescriptions: New acetaminophen 500 mg Tablet 1,000 mg PO Q8 14 Days Qty: 84 0RF Rx Instructions: Do not take more than 3000 mg Tylenol in a 24-hour period. aspirin 81 mg tablet,delayed release (DR/EC) 81 mg PO BIDCM 30 Days Qty: 60 0RF Rx Instructions: Take 81 mg aspirin twice daily for 4 weeks postoperatively for DVT prophylaxis. oxycodone 5 mg Tablet 5 - 10 mg PO Q4H PRN PRN (Reason: Pain Score 4-10) 7 Days Qty: 42 0RF sennosides-docusate sodium [Stimulant Laxative Plus] 8.6-50 mg Tablet 2 tab PO BID 3 Days Qty: 12 0RF Rx Instructions: Take until first bowel movement, then as needed Continued (DME) lancets 28 gauge misc 0 pkg .Route .MEDSUPPLY Qty: 100 3RF Rx Instructions: Check blood glucose twice daily for type 2 DM E11.69 sertraline 25 mg tablet 25 mg PO DAILY Qty: 30 1RF (DME) blood-glucose meter 1 EACH kit 0 packet .Route .MEDSUPPLY Rx Instructions: Check twice daily atorvastatin 40 mg tablet 40 mg PO QHS Rx Instructions: TAKE 1 TABLET AT BEDTIME FOR CHOLESTEROL carvedilol 12.5 mg tablet 12.5 mg PO BID Rx Instructions: TAKE 1 TABLET BY MOUTH TWICE A DAY FOR HEART clopidogrel 75 mg tablet 75 mg PO DAILY Rx Instructions: TAKE 1 TABLET BY MOUTH EVERY DAY tamsulosin 0.4 mg capsule 0.4 mg PO QHS Rx Instructions: TAKE 1 CAPSULE BY MOUTH EVERY DAY pantoprazole 40 mg tablet,delayed release (DR/EC) 40 mg PO QHS Rx Instructions: TAKE 1 TABLET BY MOUTH EVERY DAY levothyroxine 125 mcg tablet 125 mcg PO QHS lisinopril 10 mg tablet 10 mg PO DAILY (DME) blood sugar diagnostic [FreeStyle Lite Strips] Strip See Rx Instructions .ROUTE .COMPLEX Qty: 100 3RF Dose Instruction: CHECK BLOOD GLUCOSE DAILY FOR TYPE 2 DM E11.9 Rx Instructions: CHECK BLOOD GLUCOSE DAILY FOR TYPE 2 DM E11.9 (DME) disability placard See Rx Instructions .ROUTE .MEDSUPPLY Qty: 1 0RF Rx Instructions: As directed, Length of time: 5 years dapagliflozin propanediol [Farxiga] 10 mg tablet 10 mg PO DAILY Qty: 30 11RF metformin 500 mg tablet extended release 24 hr 500 mg PO DAILY Qty: 90 2RF Held spironolactone 25 mg tablet 25 mg PO DAILY Qty: 90 0RF Hold Instructions: Resume on 08/14/24. Defer to primary care physician for resuming medication after labs Other Ambulatory Orders: Basic Metabolic Profile (BMP) (Routine) Timeframe: 3 Days Facility: [facility] - Location: Laboratory Ordered By: Roland VALDIVIA Referrals / Follow Up: Physical,Therapy [Other] - 08/09/24 9:00 am Suki Brewer MD [Primary Care Provider] - (follow up in 1 week) Leonor Krueger PA [Med Staff - Adv Practice Prof] - 08/20/24 10:45 am Disposition Disposition (needs filled in before D/C Order can be placed): Home, Self Care
--- NOTE | 2024-08-07 10:05 | CASEMGMT ---
OBI FONTAINE Assessment: Face to Face with pt for initial transition planning/care coordination assessment. RN CM introduced self and role at [facility], pt voices understanding and consents to assessment. Pt is A&O x4 and answers all questions appropriately at this time. Care providers, pharmacy, and demographics verified/updated. Strata: 2 Admitting Dx: Obotic assisted R Knee Arthrop PCP: Osman Specialists: UrologistYessi Pharmacy: [facility] Insurance: [facility] Prescription Benefit: yes LNOK: , [place] Living Arrangements: Pt lives with in a 1 story home with 3 steps to enter. ADLs: I at baseline with ADLs and IADLs. Transportation: Pt drives self and denies concerns with transportation. DME: BiPap, walker HHC/SNF: Denies Hx of. Pt states no concerns with going home at time of dc. Pt states no further concerns/needs. CM to follow. Advised pt to ask CM if any further question/concerns/needs arise, voices understanding. Pt Goal: Home Plan: Home with family support and OP PT starting 08/09/24. Melvin CROCKER CM
--- NOTE | 2024-08-07 10:21 | PHA.DC.MC.R ---
Pharmacy [facility] has performed discharge medication reconciliation and counseling for this patient. 1. ACETAMINOPHEN 1000MG PO Q8 2. ASPIRIN 81MG PO BIDCM X 4 WEEKS 3. OXYCODONE 5-10MG PO Q4H PRN PAIN 4. SENNA/DOCUSATE 2T PO BID UNTIL FIRST BOWEL MOVEMENT, THEN PRN The patient's discharge medication list was reviewed for discrepancies and discrepancies were resolved. The patient was counseled on the following discharge medications and changes in medications for homegoing were reviewed. The Reason for Use, instructions for use, and potential side effects were reviewed for all new medications. The patient's questions regarding all of their medications were answered. The patient was able to verbally demonstrate an understanding of their discharge medications. Medications at Discharge Home Medications blood sugar diagnostic (FreeStyle Lite Strips) #100 strips 11/20/19 blood-glucose meter 02/04/21 disability placard #1 ea 07/08/21 lancets 28 gauge #100 ea 10/31/23 dapagliflozin propanediol 10 mg tablet (Farxiga) 10 mg PO DAILY CHOLESTEROL #30 tabs 12/23/23 sertraline 25 mg tablet 25 mg PO DAILY DEPRESSION #30 tabs 02/03/24 metformin 500 mg tablet,extended release 24 hr 500 mg PO DAILY DIABETES #90 tabs 05/03/24 atorvastatin 40 mg tablet 40 mg PO QHS CHOLESTEROL 07/11/24 carvedilol 12.5 mg tablet 12.5 mg PO BID HEART 07/11/24 clopidogrel 75 mg tablet 75 mg PO DAILY BLOOD THINNER 07/11/24 levothyroxine 125 mcg tablet 125 mcg PO QHS THYROID 07/11/24 pantoprazole 40 mg tablet,delayed release 40 mg PO QHS GERD 07/11/24 tamsulosin 0.4 mg capsule 0.4 mg PO QHS PROSTATE 07/11/24 spironolactone 25 mg tablet 25 mg PO DAILY WATER #90 tabs 07/25/24 lisinopril 10 mg tablet 10 mg PO DAILY 08/06/24 acetaminophen 500 mg tablet 1,000 mg (2 x 500 mg) PO Q8 14 days #84 tabs 08/07/24 aspirin 81 mg tablet,delayed release 81 mg PO BIDCM 30 days #60 tabs 08/07/24 oxycodone 5 mg tablet 5 - 10 mg (1 - 2 x 5 mg) PO Q4H PRN PRN Pain Score 4-10 7 days #42 tabs 08/07/24 sennosides 8.6 mg-docusate sodium 50 mg tablet (Stimulant Laxative Plus) 2 tab PO BID 3 days #12 tabs 24
[2024-08-07 10:41] VITALS: BP 100/70; PULSE 80
[2024-08-07 14:56] VITALS: BP 110/61; PULSE 78; RESP 18; TEMP 37.5; O2SAT 96
[2024-08-07] MEDS: Lisinopril 10 MG Tablet PO (14:59)
== END 2024-08-07 16:45 | disposition home or self-care (01) ==
LOC: SDC 17:08 → MS3 17:08
PROVIDERS: Anesthesiology; Admitting Provider Specialist; PCP Internal Medicine; Referring Provider Specialist; Visit Provider Specialist
PROC: 0SRC0JZ Replacement of Right Knee Joint with Synthetic Substitute, Open Approach (ICD-10-PCS; CPT 27447; principal; 2024-08-06 12:00)
DX: M17.11 Unilateral primary osteoarthritis, right knee (principal); I11.0 Hypertensive heart disease with heart failure; I50.9 Heart failure, unspecified; I42.0 Dilated cardiomyopathy; E11.51 Type 2 diabetes mellitus with diabetic peripheral angiopathy without gangrene; Z87.891 Personal history of nicotine dependence; Z79.84 Long term (current) use of oral hypoglycemic drugs; G47.33 Obstructive sleep apnea (adult) (pediatric); I25.10 Atherosclerotic heart disease of native coronary artery without angina pectoris; E78.00 Pure hypercholesterolemia, unspecified; Z79.02 Long term (current) use of antithrombotics/antiplatelets; Z79.899 Other long term (current) drug therapy; R07.9 Chest pain, unspecified; E03.9 Hypothyroidism, unspecified; Z79.890 Hormone replacement therapy; E66.9 Obesity, unspecified; K21.9 Gastro-esophageal reflux disease without esophagitis
CPT/HCPCS: 27447; S2900; 01402; 64448; 36415; 73560; 80048; 82040; 82962; 83036; 83735; 85025; 85027; 87081; 88305; 88311; 93005; 94668; 96365; 96366; 97162; 97166; 99221; 99252; C1776; J7120; A4216; G0378; G0463; J2405; J3475

== ENCOUNTER → 2024-08-14 | Outpatient (CLI) | payer MEDICARE, SELFPAY ==
[2024-08-14 15:27] LABS: Anion Gap 7 (5-15); BUN 32 mg/dL (7-18); BUN/Creat Ratio 22.9 RATIO (10-20); Chloride 108 mmol/L (98-107); EST Glomerular Filtration Rate 53 mL/min (>60); Est Glom Filt Rate - Afr Amer 64 mL/min (>60); Glucose 98 mg/dL (74-106); Potassium 4.8 mmol/L (3.5-5.1); Sodium Level 137 mmol/L (136-145)
== END | disposition home or self-care (01) ==
LOC: BIMLAB 13:27
PROVIDERS: Physician Assistant Surgical; PCP Internal Medicine; Visit Provider Internal Medicine
DX: E87.5 Hyperkalemia (principal)
CPT/HCPCS: 36415; 80048

== ENCOUNTER → 2024-08-24 | Outpatient (CLI) | payer MEDICARE, SELFPAY ==
[2024-08-24 13:14] LABS: Anion Gap 7 (5-15); BUN 38 mg/dL (7-18); BUN/Creat Ratio 25.9 RATIO (10-20); Calcium,Total 9.2 mg/dL (8.5-10.1); Chloride 109 mmol/L (98-107); Creatinine, Serum 1.47 mg/dL (0.70-1.30); EST Glomerular Filtration Rate 50 mL/min (>60); Est Glom Filt Rate - Afr Amer 60 mL/min (>60); Glucose 110 mg/dL (74-106); Potassium 4.9 mmol/L (3.5-5.1); Sodium Level 141 mmol/L (136-145)
== END | disposition home or self-care (01) ==
LOC: BIMLAB 11:03
PROVIDERS: PCP Internal Medicine; Referring Provider Internal Medicine; Visit Provider Internal Medicine
DX: I10 Essential (primary) hypertension (principal)
CPT/HCPCS: 36415; 80048

== ENCOUNTER → 2024-11-06 | Outpatient (CLI) | payer MEDICARE, SELFPAY ==
[2024-11-06 09:46] LABS: PSA,Total- Diagnostic 1.24 ng/mL (0.0-4.0)
== END | disposition home or self-care (01) ==
LOC: LAB 08:57
PROVIDERS: PCP Internal Medicine; Referring Provider Urology; Visit Provider Urology
DX: N40.1 Benign prostatic hyperplasia with lower urinary tract symptoms (principal)
CPT/HCPCS: 36415; 84153

== ENCOUNTER → 2025-03-27 | Outpatient (CLI) | payer MEDICARE, SELFPAY ==
[2025-03-27 12:30] LABS: Absolute Lymphocyte Count 1.96 X10^3/uL (0.83-4.51); Absolute Neutrophil Count 5.1 X10^3/uL (2.0-7.7); Basophil% 1.2 % (0-1); Eosinophil# 0.27 X10^3/uL; Eosinophils% 3.2 % (0-5); Hematocrit 45.5 % (40-54); Hemoglobin 14.7 g/dL (13.0-16.5); Lymphocyte # 1.96 X10^3/ul (0.83-4.51); Lymphocyte % 23.4 % (19-41); Mean Corp Hgb Conc 32.3 g/dL (32-36); Mean Corpuscular Hgb 30.2 pg (27.0-32.0); Mean Corpuscular Volume 93.4 fL (80-94); Mean Platelet Vol. 10.9 fl (6.2-12.0); Monocyte# 0.88 X10^3/uL; Monocyte% 10.5 % (0-10); NRBC Flagged by Analyzer 0 % (0-5); Neutrophil # 5.09 X10^3/uL (2.7-7.7); Neutrophil % 60.9 % (47-70); Platelet Count 246 K/mm3 (150-450); RBC Distribution Width CV 14.2 % (11.6-14.6); RBC Distribution Width SD 48.8 fl (35.1-43.9); Red Blood Count 4.87 M/mm3 (4.6-6.2); White Blood Count 8.4 K/mm3 (4.4-11.0)
== END | disposition home or self-care (01) ==
LOC: BIMLAB 09:57
PROVIDERS: PCP Internal Medicine; Referring Provider Internal Medicine; Visit Provider Internal Medicine
DX: I10 Essential (primary) hypertension (principal)
CPT/HCPCS: 36415; 85025